=== PATIENT | female | born 1945 | race Caucasian/White ===

== ENCOUNTER 2022-02-25 14:25 | Outpatient (RCR) | payer MEDICARE, SELFPAY ==
--- NOTE | 2022-03-11 16:14 | ONC.NURNOTE ---
Patient called and told that Dr. tracy reviewed with tumor board the plan and at this time scan to be repeated in 3 months and follow up with Dr. tracy. Patient able to verbalize plan. CT and labs at [facility] prior to May 27 appt
== END 2022-03-15 23:59 | disposition home or self-care (01) ==
LOC: CCIC 14:25
PROVIDERS: Visit Provider Internal Medicine Hematology & Oncology
DX: C22.7 Other specified carcinomas of liver (principal); E87.1 Hypo-osmolality and hyponatremia
CPT/HCPCS: 99212; 99214; 99215

== ENCOUNTER 2022-02-27 07:36 | Outpatient (CLI) | payer MEDICARE, SELFPAY ==
--- NOTE | 2022-02-27 08:15 | CRLHL7_ITS ---
For Patients: As a result of the Cures Act, medical imaging exams and procedure reports are released immediately into your electronic medical record. You may view this report before your referring provider. If you have questions, please contact your health care provider. INDICATION: Liver cancer; slight progression of nodular densities in the right upper para colic gutter seen on the CT. COMPARISON: CT chest, abdomen and pelvis November 17, 2021. TECHNIQUE: Precontrast T1 and T2 weighted imaging; T2 haste imaging; diffusion weighted imaging; in and out of phase imaging; postcontrast imaging. FINDINGS: Status post partial right hepatic resection. Subtle but definite nodularity identified adjacent to the right colon in the right upper quadrant of the abdomen; slight progression when compared to November 17, 2021. No focal hepatic or splenic pathology. No pancreatic pathology. Status post cholecystectomy. No adrenal pathology. Cortical cyst lower pole left kidney without any interval change. No retroperitoneal lymphadenopathy. No evidence of abdominal ascites. IMPRESSION: 1. Status post partial right hepatic resection. 2. Subtle nodularity adjacent to the right colon in the right upper quadrant of the abdomen; slight progression since November 17, 2021; reoccurrence of malignancy in this location is not ruled out; PET-CT may be of value. Dictated by Marcos Vail MD @ 03/01/2022 4:33:29 PM (Electronically Signed)
== END 2022-02-27 07:37 | disposition home or self-care (01) ==
LOC: MRI 07:38
PROVIDERS: PCP Physician Assistant; Visit Provider Internal Medicine Hematology & Oncology
DX: C22.9 Malignant neoplasm of liver, not specified as primary or secondary (principal)
CPT/HCPCS: 74183; A9575

== ENCOUNTER 2022-06-03 08:54 | Outpatient (CLI) | payer MEDICARE, SELFPAY ==
--- NOTE | 2022-06-03 10:15 | CRLHL7_ITS ---
For Patients: As a result of the Century Cures Act, medical imaging exams and procedure reports are released immediately into your electronic medical record. You may view this report before your referring provider. If you have questions, please contact your health care provider. INDICATION: Carcinomatosis. Liver tumor. TECHNIQUE: MRI of the abdomen and pelvis. T1-T2 diffusion and postcontrast T1 imaging. Contrast: 15 cc of intravenous gadolinium. COMPARISON: 02/27/2022. FINDINGS: Liver: 2 cm lesion within segment 7 of the liver. This has abnormal signal on the diffusion sequence. This is visible on the post-contrast sequence series 16, image 39. In retrospect it was likely present on the prior exam. It shows little change in size but was more difficult to visualize. No new additional liver lesion. Spleen pancreas adrenal glands and kidneys: Stable no new lesions. Stable left renal cyst. Lymph nodes: No new pathologic lymph node enlargement. Peritoneum and pelvis: Definite increase in multiple small nodules with enhancement in the right pericolic region. Within the pelvis, some questionable thickening of small bowel loops is present. Question small anterior nodule in the omentum near the transverse colon series 15, image 63. No pelvic ascites. Urinary bladder is unremarkable. Skeletal: No suspicious lesions. Miscellaneous: No pleural effusions at the included lung bases. IMPRESSION: 1. 2 cm lesion hepatic segment 7 suspicious for recurrent or metastatic disease. Previous partial right hepatic resection. 2. Probable significant progression of carcinomatosis with definitely increase multiple small nodules in the right pericolic region as well as a possible area of infiltration and nodularity within the anterior omentum. 3. No ascites. Dictated by Rober Damico MD @ 06/05/2022 4:22:42 PM Signed by: Rober Damico MD @06/05/2022 4:22:42 PM ADITI/Dictated by: Rober Damico MD @ 06/05/2022 4:03:00 PM (Electronically Signed)
== END 2022-06-03 08:55 | disposition home or self-care (01) ==
LOC: MRI 08:54
PROVIDERS: PCP Physician Assistant; Visit Provider Internal Medicine Hematology & Oncology
DX: C22.9 Malignant neoplasm of liver, not specified as primary or secondary (principal); N28.1 Cyst of kidney, acquired
CPT/HCPCS: 72197; 74183; A9575

== ENCOUNTER 2022-06-21 07:45 | Emergency (ER) | payer MEDICARE, SELFPAY ==
[2022-06-21 07:51] VITALS: BP 172/74; PULSE 72; RESP 20; TEMP 36.4; O2SAT 97; BMI 205.1
--- NOTE | 2022-06-21 08:12 | ED_ITS ---
HPI - General Adult General Time Seen by Provider: 08:13 Date Seen: 06/21/22 Chief complaint: Skin/Abscess/Foreign Body Stated complaint: Breast black after needle biopsy Time Seen by Provider: 06/21/22 08:10 Source: patient and RN notes reviewed Mode of arrival: ambulatory Limitations: no limitations History of Present Illness HPI narrative: Patient is a very rashad 77-year-old female coming in with concern of black discoloration/bruising of her right breast. She had a biopsy done via needle at [place] on Wednesday. She has not had any nipple drainage. She states she has all kinds of discharge information but nothing on bruising. She has been using ice. There is some mild discomfort of the breast but nothing severe. Her medications are reviewed, no blood thinners. She has had no fevers, no concern for infection. Related Data Home Medications Medication Instructions Recorded Confirmed Lactobacillus acidophilus 1,000 mmu cells PO QDAY 02/24/22 05/27/22 acetaminophen 325 mg tablet 325 mg PO Q4H PRN 02/24/22 05/27/22 amlodipine 5 mg tablet 5 mg PO DAILY 02/24/22 05/27/22 amoxicillin 500 mg capsule 500 mg PO ONCE PRN 02/24/22 05/27/22 atenolol 50 mg tablet 50 mg PO .Bedtime 02/24/22 05/27/22 azelastine 137 mcg (0.1 %) nasal 2 intranasal PRN 02/24/22 05/27/22 spray aerosol calcium carbonate 200 mg calcium 200 mg PO QID PRN dyspepsia 02/24/22 05/27/22 (500 mg) chewable tablet (Antacid (calcium carbonate)) cholecalciferol (vitamin D3) 25 1,000 unit PO DAILY 02/24/22 05/27/22 mcg (1,000 unit) tablet cranberry 400 mg capsule 400 mg PO BID 02/24/22 05/27/22 docusate sodium 100 mg capsule mg PO PRN 02/24/22 05/27/22 estradiol 0.01% (0.1 mg/gram) 1 vaginal DIRECTED 02/24/22 05/27/22 vaginal cream famotidine 20 mg tablet mg PO BID 02/24/22 05/27/22 hydrochlorothiazide 25 mg tablet 25 mg PO DAILY 02/24/22 05/27/22 loratadine 10 mg tablet 10 mg PO .Daily as needed PRN 02/24/22 05/27/22 multivitamin 1 tab PO QAM 02/24/22 05/27/22 Allergies Allergy/AdvReac Type Severity Reaction Status Date / Time nickel Allergy Verified 02/24/22 13:30 oxycodone Allergy Verified 02/24/22 13:30 Sulfa (Sulfonamide Allergy Verified 02/24/22 13:30 Antibiotics) Tetracyclines Allergy Verified 02/24/22 13:30 Erythromycin Allergy Uncoded 02/24/22 13:30 Review of Systems Status of ROS: Reports: 6 or more systems reviewed and unremarkable except as noted in History and below PFSH PFS Social History Smoking Status: Never smoker Do you use any of these nicotine containing products: None How often do you have a drink containing alcohol: never AUDIT-C Alcohol total score: 0 Non-prescribed substance use: denies use Exam Const: Vital Signs, click to edit/add: Vital Signs - 24 hr 06/21/22 07:51 Temperature 97.5 F L Pulse Rate [Right Pulse Oximeter] 72 Respiratory Rate 20 Blood Pressure [Ri ght Upper Arm] 172/74 H Pulse Oximetry 97 Oxygen Delivery Me thod Room Air This is a very pleasant 77-year-old female that is alert interactive no apparent distress and inspection of her anterior chest wall the inferior portion of her right breast has purplish ecchymotic discoloration. It does go up and over the areola. They realized itself is still pinkish in color. There is no nipple discharge. The bruised area itself does not feel tense in any of the areas of discoloration. It simply looks like bruising but no palpable hematoma felt at this time. On palpation of the skin the skin is not tense and there is no area of induration that would seem like there is a localized hematoma. There is no concerning erythema surrounding the bruising, no visible symptoms of infection. Documenting provider has reviewed patient's vital signs: yes Course Vital Signs Vital signs: Initial Vital Signs Temperature 97.5 F L 06/21/22 07:51 Temperature Source Temporal Artery Scan 06/21/22 07:51 Pulse Rate 72 06/21/22 07:51 Respiratory Rate 20 06/21/22 07:51 Blood Pressure 172/74 H 06/21/22 07:51 Blood Pressure Mean 106 06/21/22 07:51 Blood Pressure Position Sitting 06/21/22 07:51 Pulse Oximetry 97 06/21/22 07:51 Oxygen Delivery Method 06/21/22 07:51 Vital Signs Temperature 97.5 F L 06/21/22 07:51 Pulse Rate 72 06/21/22 07:51 Respiratory Rate 20 06/21/22 07:51 Blood Pressure 172/74 H 06/21/22 07:51 Pulse Oximetry 97 06/21/22 07:51 Oxygen Delivery Method 06/21/22 07:51 Temperature 97.5 F L 06/21/22 07:51 Pulse Rate 72 06/21/22 07:51 Respiratory Rate 20 06/21/22 07:51 Blood Pressure 172/74 H 06/21/22 07:51 Pulse Oximetry 97 06/21/22 07:51 Oxygen Delivery Method 06/21/22 07:51 Critical Care Time Critical Care Time Critical Care Time: No Discharge Plan Discharge Clinical Impression: Bruise of breast Condition: Stable Instructions: Ecchymosis (ED) Additional Instructions: Minimize activity to help decrease the risk of further bruising. You may get some bloody drainage coming from the nipple with this level of bruising. Con tinue with ice to the breast to help decrease the risk of further bleeding in the skin tissues. Recheck this week with your primary care provider or with 1 of the general surgeons as they do do breast care. Contact Clinic to get this set up. Activity Level: No strenuous activity and Light activity Prescriptions: No Action cholecalciferol (vitamin D3) 25 mcg (1,000 unit) tablet 1,000 unit PO DAILY loratadine 10 mg tablet 10 mg PO .Daily as needed PRN atenolol 50 mg tablet 50 mg PO .Bedtime estradiol 0.01 % (0.1 mg/gram) cream 1 vaginal DIRECTED azelastine 137 mcg (0.1 %) aerosol,spray 2 intranasal PRN hydrochlorothiazide 25 mg tablet 25 mg PO DAILY docusate sodium 100 mg capsule PO PRN famotidine 20 mg tablet PO BID amlodipine 5 mg tablet 5 mg PO DAILY acetaminophen 325 mg tablet 325 mg PO Q4H PRN Rx Instructions: NO MORE THAN 4000 MG/DAY amoxicillin 500 mg capsule 500 mg PO ONCE PRN Rx Instructions: Take 4 capsules 1 HR PRIOR TO DENTAL APPT calcium carbonate [Antacid (calcium carbonate)] 200 mg calcium (500 mg) tablet,chewable 200 mg PO QID PRN (Reason: dyspepsia) cranberry 400 mg capsule 400 mg PO BID Rx Instructions: administer with meals multivitamin Tablet 1 tab PO QAM Lactobacillus acidophilus Capsule 1,000 mmu cells PO QDAY Follow Up/Referrals: Diann Mcginnis PA [Primary Care Provider] - Stand Alone Forms: MyHealth Info Instructions
== END 2022-06-21 08:30 | disposition home or self-care (01) ==
LOC: ED 08:26
PROVIDERS: Emergency Provider Family Medicine; PCP Physician Assistant
DX: L76.32 Postprocedural hematoma of skin and subcutaneous tissue following other procedure (principal)
CPT/HCPCS: 99282; 99283

== ENCOUNTER 2022-06-29 09:36 | Emergency (ER) | payer MEDICARE, SELFPAY ==
[2022-06-29] VITALS (13 sets, daily range): BP systolic 110–166; BP diastolic 56–86; PULSE 73–86; RESP 12–28; TEMP 36.9; O2SAT 89–97; BMI 29.3
--- NOTE | 2022-06-29 10:43 | ED.NURSE ---
started #20 jelco as a saline lock in the right AC. Able to draw the labs and waiting for orders. hurts when patient coughs and laughs on the right side. noted the right breast is bruised from the procedure patient had 10 days ago for a liver bx
--- NOTE | 2022-06-29 10:45 | ED.GENADULT ---
HPI - General Adult General Time Seen by Provider: 10:46 Date Seen: 06/29/22 Chief complaint: Abdominal Pain Stated complaint: Chest pain/cough/shortness of breath Time Seen by Provider: 06/29/22 10:45 Source: patient and RN notes reviewed Mode of arrival: ambulatory Limitations: no limitations History of Present Illness HPI narrative: Yesenia is a 77-year-old female coming in with concern of possible pulmonary embolus, possible complication of a breast biopsy done. She is having right-sided chest pain with episodes of severe almost like cramp type pain. Sometimes it does hurt with breathing. She had a right breast biopsy done at [facility] on June 17, was seen in the ED by myself on June 21 for significant bruising and bleeding. She had complication of bruising/hematoma of the breast. She states that seemingly was improving, never did have any nipple drainage that she saw. She unfortunately has been diagnosed with breast cancer. They are in the process of being evaluated in plans being made. Her states she is going to get a port put in. The last couple days the pain has started in her right chest. She had some pain baseline after the biopsy but this is extremely intense and worsening. Low-grade fever in the 99 range in the last 24 hours. Is feeling short of breath at times. Unclear if there is any arrhythmia or palpitations. No abdominal symptoms. While I was in with her she had a spell where the pain was severely intense, almost seems like a spasm such as a musculoskeletal type spasm. It lasted a few minutes and then abated. She was hanging onto her right chest wall over the lower rib area when this happened. She also worries that there could be internal bleeding, complication of maybe them damaging her liver with a biopsy. Related Data Home Medications Medication Instructions Recorded Confirmed Lactobacillus acidophilus 1,000 mmu cells PO QDAY 02/24/22 06/29/22 acetaminophen 325 mg tablet 325 mg PO Q4H PRN 02/24/22 06/29/22 amlodipine 5 mg tablet 5 mg PO DAILY 02/24/22 06/29/22 amoxicillin 500 mg capsule 500 mg PO ONCE PRN 02/24/22 06/24/22 atenolol 50 mg tablet 50 mg PO .Bedtime 02/24/22 06/29/22 azelastine 137 mcg (0.1 %) nasal 2 intranasal PRN 02/24/22 06/24/22 spray aerosol calcium carbonate 200 mg calcium 200 mg PO QID PRN dyspepsia 02/24/22 06/29/22 (500 mg) chewable tablet (Antacid (calcium carbonate)) cholecalciferol (vitamin D3) 25 1,000 unit PO DAILY 02/24/22 06/29/22 mcg (1,000 unit) tablet cranberry 400 mg capsule 400 mg PO BID 02/24/22 06/29/22 docusate sodium 100 mg capsule 100 mg PO DAILY PRN 02/24/22 06/29/22 estradiol 0.01% (0.1 mg/gram) 1 vaginal DIRECTED 02/24/22 06/24/22 vaginal cream famotidine 20 mg tablet 20 mg PO BID 02/24/22 06/29/22 hydrochlorothiazide 25 mg tablet 25 mg PO DAILY 02/24/22 06/29/22 loratadine 10 mg tablet 10 mg PO .Daily as needed PRN 02/24/22 06/29/22 multivitamin 1 tab PO QAM 02/24/22 06/29/22 Previous Rx's Medication Instructions Recorded loperamide 2 mg capsule 2 mg PO Q6H PRN loose stool #60 06/24/22 caps prochlorperazine maleate 5 mg 5 mg PO BID PRN nausea and 06/24/22 tablet (Compazine) vomiting #60 tabs Allergies Allergy/AdvReac Type Severity Reaction Status Date / Time nickel Allergy Verified 06/29/22 12:59 oxycodone Allergy Verified 06/29/22 12:59 Sulfa (Sulfonamide Allergy Verified 06/29/22 12:59 Antibiotics) Tetracyclines Allergy Verified 06/29/22 12:59 Erythromycin Allergy Uncoded 06/29/22 12:59 Review of Systems Status of ROS: Reports: 10 or more systems reviewed and unremarkable except as noted in History and below PFSH PFS Social History Smoking Status: Never smoker Do you use any of these nicotine containing products: None How often do you have a drink containing alcohol: never AUDIT-C Alcohol total score: 0 Non-prescribed substance use: denies use Exam Const: Vital Signs, click to edit/add: Vital Signs - 24 hr 06/29/22 09:54 06/29/22 10:35 06/29/22 10:40 Temperature 98.5 F Pulse Rate [Left P ulse Oximeter] 84 80 Respiratory Rate 18 19 Blood Pressure [Le ft Upper Arm] 143/76 H 156/66 H Pulse Oximetry 96 94 94 Oxygen Delivery Me thod Room Air Room Air Oxygen Flow Rate 06/29/22 11:00 06/29/22 11:30 06/29/22 12:00 Temperature Pulse Rate [Left P ulse Oximeter] 85 76 79 Respiratory Rate 12 18 19 Blood Pressure [Le ft Upper Arm] 166/77 H 138/58 L 135/56 L Pulse Oximetry 94 92 92 Oxygen Delivery Me thod Room Air Room Air Nasal Cannula Oxygen Flow Rate 2 06/29/22 12:30 06/29/22 13:00 06/29/22 13:30 Temperature Pulse Rate [Left P ulse Oximeter] 73 78 80 Respiratory Rate 18 16 14 Blood Pressure [Le ft Upper Arm] 110/86 132/62 Pulse Oximetry 96 97 97 Oxygen Delivery Me thod Nasal Cannula Nasal Cannula Nasal Cannula Oxygen Flow Rate 2 2 2 06/29/22 13:41 06/29/22 13:44 Temperature Pulse Rate [Left P ulse Oximeter] 86 Respiratory Rate 20 18 Blood Pressure [Le ft Upper Arm] 150/67 H Pulse Oximetry 89 97 Oxygen Delivery Me thod Room Air Nasal Cannula Oxygen Flow Rate 2 Documenting provider has reviewed patient's vital signs: yes Common normals: no apparent distress, average body habitus, oriented x3, no limitations, healthy appearing and alert Other: Initially was comfortable but when her episode of pain hit while I was in the room, was in obvious distress and uncomfortable. This abated after a couple minutes but she was left with increased baseline pain. HENMT: Common normals: normocephalic, head/scalp atraumatic, hearing grossly normal bilaterally, external ears normal, external nose normal, nasal mucous membranes and turbinates normal, moist oral mucous membranes, oropharynx normal, dentition normal and gingiva normal Head and scalp: normocephalic and atraumatic Nose: external nose normal and nasal mucous membranes and turbinates normal External ear: external ears normal Eye: Common normals: PERRL, EOMs intact bilaterally, conjunctivae normal and no scleral icterus Conjunctiva: conjunctiva(e) normal Pupil: PERRL Neck & C-Spine: Common normals: full ROM, no lymphadenopathy, supple, no meningeal signs, no JVD and thyroid normal Thyroid: thyroid normal Lymph: Lymphatic: no lymphadenopathy noted Chest: Other: Inferior right breast distal ecchymotic but appears to be resolving, less intense ecchymosis noted. Overall to me the breast looks improved. There is no nipple drainage. [place] unaffected. I cannot visualize the sites where the biopsy was for sure, think I can maybe C1. Below the breast the chest wall looks normal, nontender. Resp: Common normals: normal respiratory effort, no retractions, no use of accessory muscles and clear to auscultation bilaterally Auscultation: clear to auscultation bilaterally Cardio: Common normals: no JVD, regular rate, regular rhythm, S1 normal heart sound, S2 normal heart sound, no gallops, no clicks and no murmurs Rate: regular rate Rhythm: regular rhythm Heart sounds: S1 normal and S2 normal GI: Common normals: Normal to inspection, nondistended, normoactive bowel sounds present, soft to palpation, non-tender, no hepatosplenomegaly and no masses Palpation: soft and no hepatosplenomegaly Extremity: Other: No lower extremity edema, no calf tenderness. Neuro: Common normals: oriented x3, CN's II-XII intact bilaterally, moves all extremities, no focal motor deficits, no sensory deficits noted and gait normal Sensorium/orientation: alert Meningeal signs: no meningeal signs Speech: speech normal Course Course Hospital Course: Patient will be on cardiac monitoring and pulse oximetry to look for any evidence of any arrhythmia, hypoxia. Complications of the breast biopsy are not likely to involve any underlying structural damage to the liver or the lung. I am wondering if this is more complication of the new diagnosis of breast cancer. Pneumonia, pleurisy, thromboembolic disease are all potential etiologies. I am not sure if she has had any advanced imaging to see if there is any metastases. Complications from her cancer seem to me to be more likely. Will be obtaining a full complement of labs. On discussion of pain management, it does sound like she has tolerated fentanyl prior. I have ordered fentanyl for her. She will need to be again on pulse oximetry because of the fentanyl use as well. Reevaluation(s) Reevaluation #1: Reviewed with patient and her that I was talking to our surgeon regarding what to do next. Patient is up in the room, stating she is getting an seen wants to go home. I have the sense that she has maybe a bit forgetful. Reviewed with them that she actually had a liver biopsy. Her states they told me that. The end deed did not exactly states that she had had a liver biopsy. I even said that she was diagnosed with breast cancer as a follow-up statement in there in the room with them they stated yes. This actually is recurrent liver cancer that is been diagnosed. 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 Reviewed her hemoglobin seems to be stable in the upper 11 range, am doubtful that this is a bleeding complication. The pleural fluid on her lungs maybe a complication of her cancerous process. She has been hypoxic a couple times up walking to the bathroom but recovers in the room. She does not want to stay, would like to be arranged outpatient to come back for thoracentesis if felt appropriate. She states she is going to be starting immune therapy and a couple weeks and wonders if that went just take care of things. Time: 15:16 Consultations Consultation #1: Spoke with our surgeon regarding this patient. Did pull up Dr. Quan is note and reviewing through this, I am not sure that patient actually had breast cancer. Looks like it was a liver biopsy done and had a complication of the breast hematoma. This actually making a bit more sense now. She will look at the CT to see if this is amenable for diagnostic and potentially therapeutic thoracentesis. Time: 14:47 Vital Signs Vital signs: Initial Vital Signs Temperature 98.5 F 06/29/22 09:54 Temperature Source Temporal Artery Scan 06/29/22 09:54 Pulse Rate 84 06/29/22 09:54 Respiratory Rate 18 06/29/22 09:54 Blood Pressure 143/76 H 06/29/22 09:54 Blood Pressure Mean 98 06/29/22 09:54 Blood Pressure Position Sitting 06/29/22 09:54 Pulse Oximetry 96 06/29/22 09:54 Oxygen Delivery Method 06/29/22 09:54 Vital Signs Temperature 98.5 F 06/29/22 09:54 Pulse Rate 84 06/29/22 09:54 Respiratory Rate 18 06/29/22 09:54 Blood Pressure 143/76 H 06/29/22 09:54 Pulse Oximetry 96 11/14/22 09:54 Oxygen Delivery Method 06/29/22 09:54 Temperature 98.5 F 06/29/22 09:54 Pulse Rate 86 06/29/22 13:41 Respiratory Rate 18 06/29/22 13:44 Blood Pressure 150/67 H 06/29/22 13:41 Pulse Oximetry 97 06/29/22 13:44 Oxygen Delivery Method 06/29/22 13:44 Oxygen Flow Rate 2 06/29/22 13:44 Medical Decision Making Lab Data Lab results reviewed: Yes I reviewed the patient's lab results Labs: Lab Results 06/29/22 06/29/22 06/29/22 Range/Units 10:40 10:40 10:40 WBC 9.98 (4.50-11.00) K/uL RBC 3.74 L (4.00-5.20) m/uL Hgb 11.8 L (12.0-16.0) gm/dL Hct 35.9 (33.0-51.0) % MCV 96 (80-100) fL MCH 32 (26-34) pg MCHC 33 (32-36) gm/dL RDW Coeff of Elva 13.9 (11.5-15.5) % Plt Count 354 (140-440) K/uL Neut % (Auto) 73.9 H (42.0-72.0) % Lymph % (Auto) 11.9 L (20-44) % [place] % (Auto) 10.1 (0.0-11.0) % Eos % (Auto) 3.0 (0.0-7.0) % Baso % (Auto) 0.8 (0.0-3.0) % Neut # (Auto) 7.40 H (1.7-7.0) K/uL Lymph # (Auto) 1.20 (0.90-2.90) K/uL [place] # (Auto) 1.00 H (0.00-0.90) K/UL Eos # (Auto) 0.30 (0.00-0.50) K/uL Baso # (Auto) 0.08 (0.00-0.30) K/uL Abs Immat Gran (auto) 0.03 (0.00-0.30) K/uL Imm/Tot Granulo (auto) 0.3 % D-Dimer Quant (PE/DVT) 1.33 H (0.00-0.50) ug/ml VBG pH (7.32-7.43) VBG pCO2 (40-50) mmHG VBG pO2 (25-47) mmHG VBG HCO3 (21-28) mmol/L Sodium 130 L (135-149) mmol/L Potassium 4.1 (3.6-5.1) mmol/L Chloride 93 L (96-114) mmol/L Carbon Dioxide 29 (20-32) mmol/L BUN 15 (7-30) mg/dL Creatinine 0.6 (0.5-1.5) mg/dL Estimated Creat Clear 33.30 Estimated GFR 92 ml/min Glucose 97 (60-115) mg/dL Lactate (0.5-1.9) mmol/L Calcium 9.6 (8.4-10.6) mg/dL Total Bilirubin 0.8 (0.1-1.5) mg/dL AST 25 (12-35) U/L ALT 18 (4-35) U/L Alkaline Phosphatase 70 (40-150) U/L C-Reactive Protein 7.9 H (0.5-1.0) mg/dL Total Protein 7.0 (6.0-8.3) g/dL Albumin 4.0 (3.3-5.0) g/dL Lipase (23-300) U/L SARS-CoV-2 (PCR) (Negative) Influenza Type A (PCR) (Negative) Influenza Type B (PCR) (Negative) RSV (PCR) (Negative) POC Troponin I (0.01-0.04) ng/ml 06/29/22 06/29/22 06/29/22 Range/Units 10:40 10:40 10:40 WBC (4.50-11.00) K/uL RBC (4.00-5.20) m/uL Hgb (12.0-16.0) gm/dL Hct (33.0-51.0) % MCV (80-100) fL MCH (26-34) pg MCHC (32-36) gm/dL RDW Coeff of Elva (11.5-15.5) % Plt Count (140-440) K/uL Neut % (Auto) (42.0-72.0) % Lymph % (Auto) (20-44) % [place] % (Auto) (0.0-11.0) % Eos % (Auto) (0.0-7.0) % Baso % (Auto) (0.0-3.0) % Neut # (Auto) (1.7-7.0) K/uL Lymph # (Auto) (0.90-2.90) K/uL [place] # (Auto) (0.00-0.90) K/UL Eos # (Auto) (0.00-0.50) K/uL Baso # (Auto) (0.00-0.30) K/uL Abs Immat Gran (auto) (0.00-0.30) K/uL Imm/Tot Granulo (auto) % D-Dimer Quant (PE/DVT) (0.00-0.50) ug/ml VBG pH (7.32-7.43) VBG pCO2 (40-50) mmHG VBG pO2 (25-47) mmHG VBG HCO3 (21-28) mmol/L Sodium (135-149) mmol/L Potassium (3.6-5.1) mmol/L Chloride (96-114) mmol/L Carbon Dioxide (20-32) mmol/L BUN (7-30) mg/dL Creatinine (0.5-1.5) mg/dL Estimated Creat Clear Estimated GFR ml/min Glucose (60-115) mg/dL Lactate 1.2 (0.5-1.9) mmol/L Calcium (8.4-10.6) mg/dL Total Bilirubin (0.1-1.5) mg/dL AST (12-35) U/L ALT (4-35) U/L Alkaline Phosphatase (40-150) U/L C-Reactive Protein (0.5-1.0) mg/dL Total Protein (6.0-8.3) g/dL Albumin (3.3-5.0) g/dL Lipase 70 (23-300) U/L SARS-CoV-2 (PCR) (Negative) Influenza Type A (PCR) (Negative) Influenza Type B (PCR) (Negative) RSV (PCR) (Negative) POC Troponin I 0.00 L (0.01-0.04) ng/ml 06/29/22 06/29/22 Range/Units 10:40 10:56 WBC (4.50-11.00) K/uL RBC (4.00-5.20) m/uL Hgb (12.0-16.0) gm/dL Hct (33.0-51.0) % MCV (80-100) fL MCH (26-34) pg MCHC (32-36) gm/dL RDW Coeff of Elva (11.5-15.5) % Plt Count (140-440) K/uL Neut % (Auto) (42.0-72.0) % Lymph % (Auto) (20-44) % [place] % (Auto) (0.0-11.0) % Eos % (Auto) (0.0-7.0) % Baso % (Auto) (0.0-3.0) % Neut # (Auto) (1.7-7.0) K/uL Lymph # (Auto) (0.90-2.90) K/uL [place] # (Auto) (0.00-0.90) K/UL Eos # (Auto) (0.00-0.50) K/uL Baso # (Auto) (0.00-0.30) K/uL Abs Immat Gran (auto) (0.00-0.30) K/uL Imm/Tot Granulo (auto) % D-Dimer Quant (PE/DVT) (0.00-0.50) ug/ml VBG pH 7.475 H (7.32-7.43) VBG pCO2 41 (40-50) mmHG VBG pO2 44.6 (25-47) mmHG VBG HCO3 30 H (21-28) mmol/L Sodium (135-149) mmol/L Potassium (3.6-5.1) mmol/L Chloride (96-114) mmol/L Carbon Dioxide (20-32) mmol/L BUN (7-30) mg/dL Creatinine (0.5-1.5) mg/dL Estimated Creat Clear Estimated GFR ml/min Glucose (60-115) mg/dL Lactate (0.5-1.9) mmol/L Calcium (8.4-10.6) mg/dL Total Bilirubin (0.1-1.5) mg/dL AST (12-35) U/L ALT (4-35) U/L Alkaline Phosphatase (40-150) U/L C-Reactive Protein (0.5-1.0) mg/dL Total Protein (6.0-8.3) g/dL Albumin (3.3-5.0) g/dL Lipase (23-300) U/L SARS-CoV-2 (PCR) Negative SARS-CoV-2 (Negative) Influenza Type A (PCR) Negative PCR FLU A (Negative) Influenza Type B (PCR) Negative PCR FLU B (Negative) RSV (PCR) Negative PCR RSV (Negative) POC Troponin I (0.01-0.04) ng/ml Imaging Data Chest x-ray: Attestation: I have reviewed the pertinent imaging results. My impression: There is obliteration of the right costophrenic angle, some haziness. Pleural effusion, infiltrate certainly are possible. Await Radiology over-read. Radiologist's impression: Patient: LENI GAN Facility:?[facility] Patient ID:?[id number] Site Patient ID:?[id number]. Site :?[id number] Study:?XRay Chest PORTABLE-06/29/2022 11:17:35 AM Ordering Physician:Soren Galdamez Final Report: Indication: Right-sided chest pain. Technique: Chest 1 view. Comparison: CT chest November 17, 2021. Findings/Impression: Cardiovascular and mediastinum: Heart size and vasculature are normal in caliber and appearance. Lungs and pleural space: Asymmetric hazy opacity is obscuring the lower right lung. An infiltrative process in this area is possible. Small right basilar pleural effusion is also possible. Left lung and pleural space are clear. No pneumothorax. No other finding to explain chest pain. Bones and soft tissues: No acute findings. Dictated by Brendon Randhawa MD @ 06/29/2022 12:00:26 PM (Electronic Signature) CT scan - chest: Attestation: I have reviewed the pertinent imaging results. My impression: I see a definite pleural effusion in her right hemithorax. Radiologist's impression: Patient: LENI GAN Facility:?[facility] Patient ID:?[id number] Site Patient ID:?[id number]. Site :?[id number] Study:?CT Chest Angio PE 95CC ISOVUE 370-06/29/2022 12:56:46 PM Ordering Physician:Soren Galdamez Final Report: INDICATION: Right chest pain. New diagnosed breast cancer. TECHNIQUE: CT chest PE was acquired with 95 mL Isovue 370 IV contrast. Coronal and sagittal reformats were generated. COMPARISON: CT chest, abdomen, and pelvis from 11/17/2021. FINDINGS: Pulmonary arteries: The quality of enhancement of the pulmonary arteries is adequate. No filling defects to suggest pulmonary emboli. No findings of pulmonary artery hypertension. Thyroid: Unremarkable. Thoracic lymph nodes: No enlarged supraclavicular, mediastinal, hilar, or axillary lymph nodes. Mediastinum and esophagus: Unremarkable. Heart and vasculature: Unremarkable. Lungs: Stable changes of right upper lobectomy. Right basilar relaxation atelectasis. Several small pulmonary nodules appear new from prior. Index lesions include: *Right lower lobe nodule measures approximately 6 mm (5/115). *Right lower lobe nodule near the fissure measures approximately 5 mm (5/61). Pleura: Small right pleural effusion is new. No left pleural effusion. Chest wall: Unremarkable. Upper abdomen: Stable contour deformity of the right hepatic lobe, with high-density material suggestive of prior resection. Multiple adjacent nodules in the mesentery are new or increased in size from prior. Bones: Unremarkable for age. IMPRESSION: 1. No pulmonary embolism. 2. New right pleural effusion with associated compressive atelectasis. 3. New pulmonary nodules are nonspecific, but suggestive of metastases. 4. Stable changes of partial right hepatectomy, with new nodules in the mesentery adjacent to the liver, possibly recurrent disease or peritoneal carcinomatosis. Please note that all CT scans at this facility use dose modulation, iterative reconstruction, and/or weight-based dosing when appropriate to reduce radiation dose to as low as reasonably achievable. Dictated by Brien Florez MD @ 06/29/2022 1:58:21 PM (Electronic Signature) ECG Data Attestation: I personally reviewed and interpreted this ECG as follows: (Sinus rhythm, 78 beats per minute. Flipped T-waves lead 3, V1 through V3. No ST segment changes. QT corrected 399 milliseconds.) Prior ECG tracings: not available for review Critical Care Time Critical Care Time Critical Care Time: No Discharge Plan Discharge Clinical Impression: Cancer of liver, Pleural effusion on right Patient Disposition: Home, Self-Care Condition: Stable Instructions: Pleural Effusion (ED), Thoracentesis (DC) Additional Instructions: Can try some Tylenol per bottle directions if needed for pain. The Cancer [facility] will be contacting you to see Dr. Sims either tomorrow or Wednesday. She will have a repeat chest x-ray done to determine whether or not thoracentesis needs to be considered. The radiologist had spoken with our surgeon today and felt that the effusion was small, making the surgeon feel like this was not immediately necessary to do the thoracentesis. However, in the interim if you are worsening with increasing shortness of breath, difficulty breathing, increasing chest pain, do need you to return and seek further evaluation in the ER. Do not recommend over exerting yourself to precipitate any shortness of breath. Activity Level: Activity as Tolerated Prescriptions: No Action cholecalciferol (vitamin D3) 25 mcg (1,000 unit) tablet 1,000 unit PO DAILY loratadine 10 mg tablet 10 mg PO .Daily as needed PRN atenolol 50 mg tablet 50 mg PO .Bedtime estradiol 0.01 % (0.1 mg/gram) cream 1 vaginal DIRECTED azelastine 137 mcg (0.1 %) aerosol,spray 2 intranasal PRN hydrochlorothiazide 25 mg tablet 25 mg PO DAILY docusate sodium 100 mg capsule 100 mg PO DAILY PRN famotidine 20 mg tablet 20 mg PO BID amlodipine 5 mg tablet 5 mg PO DAILY acetaminophen 325 mg tablet 325 mg PO Q4H PRN Rx Instructions: NO MORE THAN 4000 MG/DAY amoxicillin 500 mg capsule 500 mg PO ONCE PRN Rx Instructions: Take 4 capsules 1 HR PRIOR TO DENTAL APPT calcium carbonate [Antacid (calcium carbonate)] 200 mg calcium (500 mg) tablet,chewable 200 mg PO QID PRN (Reason: dyspepsia) cranberry 400 mg capsule 400 mg PO BID Rx Instructions: administer with meals multivitamin Tablet 1 tab PO QAM Lactobacillus acidophilus Capsule 1,000 mmu cells PO QDAY prochlorperazine maleate [Compazine] 5 mg tablet 5 mg PO BID PRN (Reason: nausea and vomiting) Qty: 60 0RF loperamide 2 mg capsule 2 mg PO Q6H PRN (Reason: loose stool) Qty: 60 0RF Follow Up/Referrals: Diann Mcginnis PA [Primary Care Provider] - Stand Alone Forms: [employer] Info Instructions
--- NOTE | 2022-06-29 10:55 | CRLHL7_ITS ---
For Patients: As a result of the Century Cures Act, medical imaging exams and procedure reports are released immediately into your electronic medical record. You may view this report before your referring provider. If you have questions, please contact your health care provider. Indication: Right-sided chest pain. Technique: Chest 1 view. Comparison: CT chest November 17, 2021. Findings/Impression: Cardiovascular and mediastinum: Heart size and vasculature are normal in caliber and appearance. Lungs and pleural space: Asymmetric hazy opacity is obscuring the lower right lung. An infiltrative process in this area is possible. Small right basilar pleural effusion is also possible. Left lung and pleural space are clear. No pneumothorax. No other finding to explain chest pain. Bones and soft tissues: No acute findings. Dictated by Brendon Randhawa MD @ 06/29/2022 12:00:26 PM (Electronically Signed)
[2022-06-29 11:06] LABS: HCO3 VBG 30 mmol/L (21-28); PCO2 VBG 41 mmHG (40-50); PO2 VBG 44.6 mmHG (25-47); pH VBG 7.475 (7.32-7.43)
[2022-06-29 11:08] LABS: Lactate* 1.2 mmol/L (0.5-1.9)
[2022-06-29 11:24] LABS: Basophils Absolute Auto 0.08 K/uL (0.00-0.30); Basophils Percent Auto 0.8 % (0.0-3.0); Hematocrit 35.9 % (33.0-51.0); Hemoglobin* 11.8 gm/dL (12.0-16.0); Immature Granulocytes Abs Auto 0.03 K/uL (0.00-0.30); Immature Granulocytes Pct Auto 0.3 %; Lymphocytes Percent Auto 11.9 % (20-44); Mean Corpuscular HGB Conc 33 gm/dL (32-36); Mean Corpuscular Hemoglobin 32 pg (26-34); Mean Corpuscular Volume 96 fL (80-100); Monocytes Percent Auto 10.1 % (0.0-11.0); Neutrophils Percent Auto 73.9 % (42.0-72.0); Platelet Count* 354 K/uL (140-440); RDW Coefficient of Variation % 13.9 % (11.5-15.5); Red Blood Count 3.74 m/uL (4.00-5.20); White Blood Count* 9.98 K/uL (4.50-11.00)
--- NOTE | 2022-06-29 11:40 | ED.NURSE ---
up ambulatory to BR. Sats 86% on room air when pt returned. encouraged deep breathing and cough. Pt stated she could cough but it would hurt. Sats increased to 93% on room with with rest and deep breathing.
[2022-06-29 11:44] LABS: D Dimer Quantitative* 1.33 ug/ml (0.00-0.50)
--- NOTE | 2022-06-29 11:54 | CRLHL7_ITS ---
For Patients: As a result of the Century Cures Act, medical imaging exams and procedure reports are released immediately into your electronic medical record. You may view this report before your referring provider. If you have questions, please contact your health care provider. INDICATION: Right chest pain. New diagnosed breast cancer. TECHNIQUE: CT chest PE was acquired with 95 mL Isovue 370 IV contrast. Coronal and sagittal reformats were generated. COMPARISON: CT chest, abdomen, and pelvis from 11/17/2021. FINDINGS: Pulmonary arteries: The quality of enhancement of the pulmonary arteries is adequate. No filling defects to suggest pulmonary emboli. No findings of pulmonary artery hypertension. Thyroid: Unremarkable. Thoracic lymph nodes: No enlarged supraclavicular, mediastinal, hilar, or axillary lymph nodes. Mediastinum and esophagus: Unremarkable. Heart and vasculature: Unremarkable. Lungs: Stable changes of right upper lobectomy. Right basilar relaxation atelectasis. Several small pulmonary nodules appear new from prior. Index lesions include: *Right lower lobe nodule measures approximately 6 mm (5/115). *Right lower lobe nodule near the fissure measures approximately 5 mm (5/61). Pleura: Small right pleural effusion is new. No left pleural effusion. Chest wall: Unremarkable. Upper abdomen: Stable contour deformity of the right hepatic lobe, with high-density material suggestive of prior resection. Multiple adjacent nodules in the mesentery are new or increased in size from prior. Bones: Unremarkable for age. IMPRESSION: 1. No pulmonary embolism. 2. New right pleural effusion with associated compressive atelectasis. 3. New pulmonary nodules are nonspecific, but suggestive of metastases. 4. Stable changes of partial right hepatectomy, with new nodules in the mesentery adjacent to the liver, possibly recurrent disease or peritoneal carcinomatosis. Please note that all CT scans at this facility use dose modulation, iterative reconstruction, and/or weight-based dosing when appropriate to reduce radiation dose to as low as reasonably achievable. Dictated by Brien Florez MD @ 06/29/2022 1:58:21 PM (Electronically Signed)
[2022-06-29 11:57] LABS: PCR FLU A Negative PCR FLU A (Negative); PCR FLU B Negative PCR FLU B (Negative); PCR RSV Negative PCR RSV (Negative)
[2022-06-29 11:59] LABS: Slide Review Reflex No
[2022-06-29 12:08] LABS: Chloride* 93 mmol/L (96-114); Sodium* 130 mmol/L (135-149)
[2022-06-29 12:08] LABS: SARS PCR* Negative SARS-CoV-2 (Negative)
[2022-06-29 12:09] LABS: Potassium* 4.1 mmol/L (3.6-5.1)
[2022-06-29 12:10] LABS: Lipase* 70 U/L (23-300)
[2022-06-29 12:11] LABS: Alkaline Phosphatase* 70 U/L (40-150); Aspartate Amino Transferase* 25 U/L (12-35); Bilirubin Total* 0.8 mg/dL (0.1-1.5); Carbon Dioxide* 29 mmol/L (20-32); Creatinine* 0.6 mg/dL (0.5-1.5); Estimated Glomerular Filt Rate 92 ml/min
[2022-06-29 12:12] LABS: Alanine Aminotransferase* 18 U/L (4-35); Blood Urea Nitrogen* 15 mg/dL (7-30); Calcium* 9.6 mg/dL (8.4-10.6); Glucose* 97 mg/dL (60-115)
[2022-06-29 12:14] LABS: C Reactive Protein* 7.9 mg/dL (0.5-1.0)
--- NOTE | 2022-06-29 13:39 | ED.NURSE ---
Pt up to bathroom and states she would like to try walking without being on oxygen. Pt's sats at 89% on RA after returning from bathroom. Pt placed back on 2 LPM O2 via NC. Sats up to 97%.
--- NOTE | 2022-06-29 14:09 | ED.NURSE ---
Pt c/o pain. Asked if she would like prn pain medication. Pt states she would like to hold off on any pain medication at this time.
== END 2022-06-29 15:55 | disposition home or self-care (01) ==
PROVIDERS: Emergency Provider Family Medicine; PCP Physician Assistant
DX: J90 Pleural effusion, not elsewhere classified (principal); C22.9 Malignant neoplasm of liver, not specified as primary or secondary
CPT/HCPCS: 36415; 71045; 71260; 80053; 82803; 83605; 83690; 85025; 85379; 86140; 87502; 87634; 87635; 93005; 94761; 99284; Q9967

== ENCOUNTER 2022-06-30 12:57 | Outpatient (CLI) | payer MEDICARE, SELFPAY ==
--- NOTE | 2022-06-30 13:00 | CRLHL7_ITS ---
For Patients: As a result of the Century Cures Act, medical imaging exams and procedure reports are released immediately into your electronic medical record. You may view this report before your referring provider. If you have questions, please contact your health care provider. INDICATION: Right pleural effusion. TECHNIQUE: Chest 2 views. COMPARISON: Chest x-ray from 06/29/2022. FINDINGS: Lungs: Mild interstitial prominence. No focal consolidation. Pleura: Small right pleural effusion is slightly larger. Heart and Mediastinum: The cardiomediastinal silhouette is enlarged. Slightly larger right pleural effusion. Bones: Unremarkable. IMPRESSION: No acute cardiopulmonary disease. Dictated by Brien Florez MD @ 06/30/2022 2:04:42 PM (Electronically Signed)
== END 2022-06-30 12:58 | disposition home or self-care (01) ==
LOC: RAD 12:57
PROVIDERS: PCP Physician Assistant; Visit Provider Clinical Nurse Specialist
DX: J90 Pleural effusion, not elsewhere classified (principal); E78.5 Hyperlipidemia, unspecified; I10 Essential (primary) hypertension; C34.91 Malignant neoplasm of unspecified part of right bronchus or lung; Z90.49 Acquired absence of other specified parts of digestive tract; C22.9 Malignant neoplasm of liver, not specified as primary or secondary
CPT/HCPCS: 71046

== ENCOUNTER 2022-07-01 10:15 | Outpatient (CLI) | payer MEDICARE, SELFPAY ==
[2022-07-01 10:20] VITALS: BP 169/88; PULSE 77; RESP 18; O2SAT 95
[2022-07-01] MEDS: TETRACAINE 0.5% OPHTH 1 DROP EYE-RIGHT ×3 (10:28→11:23)
[2022-07-01] MEDS: BRIMONIDINE TARTRATE 0.2% OPHTH 1 DROP EYE-RIGHT ×2 (10:30→11:31)
--- NOTE | 2022-07-01 12:16 | P.OPTPRC_ITS ---
Procedure Note Date of procedure: 07/01/22 Will [facility] bill your pro fee for this procedure?: Yes Procedure Description: SURGEON: Thelma Urena MD PREOPERATIVE DIAGNOSIS: Posterior capsular opacity, right eye POSTOPERATIVE DIAGNOSIS: Posterior capsular opacity, right eye PROCEDURE: YAG laser capsulotomy, right eye ANESTHESIA: Topical. ESTIMATED BLOOD LOSS: None PATHOLOGY SPECIMEN: None COMPLICATIONS: None INDICATIONS: See consult note for details. The risks, benefits and alternatives of the procedure were explained to the patient, who elected to proceed and signed informed consent to do so. PROCEDURE: The patient was brought to the pre-holding area where the right eye was identified as the operative eye. I placed my initials above this eye. The patient received 2 sets of 1 drop of 0.5% tetracaine and 1 drop of 1% tropicamide. They also received 1 drop of 0.2% brimonidine. They received 1 drop of 0.5% tetracaine immediately prior to bringing them back for the procedure. The patient was then brought to the procedure room where the right eye was again identified as the operative eye. A YAG Chapito capsulotomy lens was placed on the eye. The laser was administered using a total number of 13shots with an energy of 2.4 mJ per shot for a total energy of 31 mJ. The patient tolerated the procedure well. DISPOSITION: The patient was taken back to the pre-holding area and given 1 drop of 0.2% brimonidine in the right eye. They were discharged to home in stable condition. The patient was instructed to call me or go to the emergency department with any sudden change, including dramatic loss of vision, severe pain in the eye or eyebrow region, nausea, or vomiting. The patient was instructed to use the 0.2% brimonidine 1 drop 2 times a day in the right eye for 1 week. The patient will follow up in the clinic in 1-2 weeks. Thirteen Surgeon: Thelma Urena MD
== END 2022-07-01 11:31 | disposition home or self-care (01) ==
LOC: OP CLINIC 10:16 → EYE PRC 10:20
PROVIDERS: PCP Physician Assistant; Visit Provider Ophthalmology
DX: H26.9 Unspecified cataract (principal)
CPT/HCPCS: 66821; A9270

== ENCOUNTER 2022-07-10 13:36 | Emergency (ER) | payer MEDICARE, SELFPAY ==
[2022-07-10 14:59] VITALS: BP 175/79; PULSE 84; RESP 26; TEMP 37.1; O2SAT 96; BMI 28.3
--- NOTE | 2022-07-10 15:22 | CRLHL7_ITS ---
For Patients: As a result of the Century Cures Act, medical imaging exams and procedure reports are released immediately into your electronic medical record. You may view this report before your referring provider. If you have questions, please contact your health care provider. Indication: Shortness of breath Comparison: Two-view chest June 30, 2022 Technique: Single AP view chest Findings: There is hyperinflation and chronic interstitial change. Persistent right greater than left basilar pleural effusions with adjacent compressive atelectasis versus infiltrates. Postoperative change of the right upper lobe and elevation of the minor fissure is again seen. The cardiac silhouette is mildly prominent. The bony thorax is grossly intact. Impression: Right greater than left basilar pleural effusion with adjacent compressive atelectasis versus infiltrates. Dictated by Jovan Ibrahim MD @ 07/10/2022 4:39:38 PM (Electronically Signed)
[2022-07-10 15:40] LABS: Appearance Urine Clear (Clear); Bilirubin Urine Negative (Negative); Blood Urine 2+ (Negative); Color Urine Yellow (Yellow); Glucose Urine Negative (Negative); Ketones Urine Negative (Negative); Leukocyte Esterase Urine Negative (Negative); Nitrite Urine Negative (Negative); Protein Urine Negative (Negative); Urobilinogen Urine 0.2 (0.2-1.0)
[2022-07-10 15:57] LABS: Lactate* 0.7 mmol/L (0.5-1.9)
[2022-07-10 15:59] LABS: Basophils Absolute Auto 0.12 K/uL (0.00-0.30); Basophils Percent Auto 1.2 % (0.0-3.0); Eosinophils Absolute Auto 0.14 K/uL (0.00-0.50); Eosinophils Percent Auto 1.4 % (0.0-7.0); Hematocrit 35.6 % (33.0-51.0); Hemoglobin* 11.6 gm/dL (12.0-16.0); Immature Granulocytes Abs Auto 0.05 K/uL (0.00-0.30); Immature Granulocytes Pct Auto 0.5 %; Lymphocytes Percent Auto 17.5 % (20-44); Mean Corpuscular HGB Conc 33 gm/dL (32-36); Mean Corpuscular Hemoglobin 31 pg (26-34); Mean Corpuscular Volume 94 fL (80-100); Monocytes Percent Auto 10.7 % (0.0-11.0); Neutrophils Absolute Auto 6.72 K/uL (1.7-7.0); Neutrophils Percent Auto 68.7 % (42.0-72.0); Platelet Count* 492 K/uL (140-440); RDW Coefficient of Variation % 13.3 % (11.5-15.5); Red Blood Count 3.79 m/uL (4.00-5.20); White Blood Count* 9.79 K/uL (4.50-11.00)
[2022-07-10 16:00] LABS: Slide Review Reflex No
[2022-07-10 16:03] LABS: RBC Urine 0-2 (0-2)
[2022-07-10 16:04] LABS: WBC Urine 0-2 (0-5)
[2022-07-10 16:14] LABS: Chloride* 94 mmol/L (96-114)
[2022-07-10 16:15] LABS: Albumin* 4.1 g/dL (3.3-5.0); Sodium* 130 mmol/L (135-149)
[2022-07-10 16:16] LABS: Potassium* 3.8 mmol/L (3.6-5.1)
[2022-07-10 16:18] LABS: Alanine Aminotransferase* 16 U/L (4-35); Alkaline Phosphatase* 88 U/L (40-150); Aspartate Amino Transferase* 22 U/L (12-35); Bilirubin Direct* 0.2 mg/dL (0.0-0.5); Bilirubin Total* 0.4 mg/dL (0.1-1.5); Blood Urea Nitrogen* 12 mg/dL (7-30); Carbon Dioxide* 29 mmol/L (20-32); Creatinine* 0.6 mg/dL (0.5-1.5); Estimated Glomerular Filt Rate 92 ml/min; Total Protein* 7.8 g/dL (6.0-8.3)
[2022-07-10 16:19] LABS: Calcium* 9.1 mg/dL (8.4-10.6); Glucose* 97 mg/dL (60-115)
[2022-07-10 16:21] LABS: C Reactive Protein* 7.2 mg/dL (0.5-1.0)
[2022-07-10 16:30] VITALS: BP 106/68; RESP 16; O2SAT 96
--- NOTE | 2022-07-10 17:05 | CRLHL7_ITS ---
For Patients: As a result of the Century Cures Act, medical imaging exams and procedure reports are released immediately into your electronic medical record. You may view this report before your referring provider. If you have questions, please contact your health care provider. INDICATION: Shortness of breath. TECHNIQUE: CT chest PE was acquired with 95 cc Isovue 370 IV contrast. COMPARISON: June 29, 2022. FINDINGS: Heart and vasculature: Contrast opacification of the pulmonary arterial tree is adequate. No sign of pulmonary embolism. Stable heart, thoracic aorta, and pulmonary artery when compared to prior study. Lungs and pleura: Similar right pleural effusion with compressive atelectasis. Redemonstration of pulmonary nodules, thought to represent metastasis. Lymph nodes/mediastinum: Stable prominent mediastinal lymph nodes. Chest wall: No masses. Upper abdomen: Unchanged, including partial right hepatic resection and carcinomatosis. Bones: Unremarkable for age. IMPRESSION: No pulmonary embolism is questioned Stable right pleural effusion. Stable pulmonary nodules, thought to be metastasis. No significant interval change compared to prior study performed June 29, 2022. Please note that all CT scans at this facility use dose modulation, iterative reconstruction, and/or weight-based dosing when appropriate to reduce radiation dose to as low as reasonably achievable. Dictated by Heri Victor MD @ 07/10/2022 6:35:23 PM (Electronically Signed)
[2022-07-10 17:09] LABS: PCR FLU A Negative PCR FLU A (Negative); PCR FLU B Negative PCR FLU B (Negative)
[2022-07-10 17:16] LABS: SARS PCR* Negative SARS-CoV-2 (Negative)
[2022-07-10 17:23] LABS: Erythrocyte SedimentationRate* 88 mm/hr (2-20)
--- NOTE | 2022-07-10 17:44 | ED.GENADULT ---
HPI - General Adult General Chief complaint: Shortness of Breath/Dyspnea Stated complaint: From [facility] Time Seen by Provider: 07/10/22 15:12 Source: patient Mode of arrival: ambulatory Limitations: no limitations History of Present Illness HPI narrative: 77-year-old female coming in today complaining shortness of breath going on for about a month. However in the last couple of days has gotten worse. She states that this all started after she had a liver biopsy done. In the last couple days she can hardly do any physical activity as this causes her immediate shortness of breath. She denies any chest pain. She has a cough that is nonproductive that comes and goes. She denies any fevers or chills. No changes in her appetite. Lying down does not cause her to feel more short of breath. She denies any swelling to her extremities. She has been told the past that she has pleural effusions, she is unsure of why. Related Data Home Medications Medication Instructions Recorded Confirmed Lactobacillus acidophilus 1,000 mmu cells PO QDAY 02/24/22 06/30/22 acetaminophen 325 mg tablet 325 mg PO Q4H PRN 02/24/22 07/02/22 amlodipine 5 mg tablet 5 mg PO DAILY 02/24/22 07/02/22 amoxicillin 500 mg capsule 500 mg PO ONCE PRN 02/24/22 07/02/22 atenolol 50 mg tablet 50 mg PO .Bedtime 02/24/22 07/02/22 azelastine 137 mcg (0.1 %) nasal 2 intranasal PRN 02/24/22 06/30/22 spray aerosol calcium carbonate 200 mg calcium 200 mg PO QID PRN dyspepsia 02/24/22 07/02/22 (500 mg) chewable tablet (Antacid (calcium carbonate)) cholecalciferol (vitamin D3) 25 1,000 unit PO DAILY 02/24/22 07/02/22 mcg (1,000 unit) tablet cranberry 400 mg capsule 400 mg PO BID 02/24/22 07/02/22 docusate sodium 100 mg capsule 100 mg PO DAILY PRN 02/24/22 07/02/22 estradiol 0.01% (0.1 mg/gram) 1 vaginal DIRECTED 02/24/22 06/30/22 vaginal cream famotidine 20 mg tablet 20 mg PO BID 02/24/22 07/02/22 hydrochlorothiazide 25 mg tablet 25 mg PO DAILY 02/24/22 07/02/22 loratadine 10 mg tablet 10 mg PO .Daily as needed PRN 02/24/22 07/02/22 multivitamin 1 tab PO QAM 02/24/22 07/02/22 tramadol 50 mg tablet 25 mg PO Q6H PRN 07/02/22 07/02/22 Previous Rx's Medication Instructions Recorded loperamide 2 mg capsule 2 mg PO Q6H PRN loose stool #60 06/24/22 caps prochlorperazine maleate 5 mg 5 mg PO BID PRN nausea and 06/24/22 tablet (Compazine) vomiting #60 tabs hydrocodone 5 mg-acetaminophen 325 1 tab PO Q4-6H PRN pain #30 tabs 06/30/22 mg tablet levofloxacin 750 mg tablet 750 mg PO Q24H #7 tabs 06/30/22 Allergies Allergy/AdvReac Type Severity Reaction Status Date / Time erythromycin base Allergy Verified 07/10/22 14:59 nickel Allergy Verified 07/10/22 14:59 oxycodone Allergy Verified 07/10/22 14:59 Sulfa (Sulfonamide Allergy Verified 07/10/22 14:59 Antibiotics) Tetracyclines Allergy Verified 07/10/22 14:59 Review of Systems Status of ROS: Reports: 10 or more systems reviewed and unremarkable except as noted in History and below [facility] Medical History Adenocarcinoma of right lung (~2020) HTN (hypertension) Hyperlipidemia Surgical History H/O resection of liver (~02/2021) Social History Smoking Status: Former smoker Do you use any of these nicotine containing products: None Second hand tobacco smoke exposure: No How often do you have a drink containing alcohol: 2-4 times a month How many standard drinks containing alcohol do you have on a typical day: 1 or 2 How often do you have six or more drinks on one occasion: Never AUDIT-C Alcohol total score: 2 Non-prescribed substance use: denies use service: No Exam Narrative: Exam Narrative: Well-nourished well-developed patient in no acute distress. Alert and oriented. Answers questions appropriately. Mood and affect are appropriate. Thoughts are goal oriented and rational. No tangential or magical thinking noted. Patient speaks in full sentences without needing to catch her breath. Speech is not slurred or pressure. Voice sounds normal. HEENT: Normocephalic atraumatic. Pupils are equally round reactive to light. Extraocular muscles are intact. Conjunctivae are moist without any icterus noted. Moist mucous membranes. Posterior pharynx is normal. Neck is soft without any lymphadenopathy or thyromegaly. No masses are appreciated. Cardiovascular: Heart is regular rate and rhythm S1 and S2 are present without any murmurs. Lungs: Markedly decreased breath sounds on the right when compared to the left. No rhonchi or rales are appreciated. Abdomen: Soft and nontender nondistended with normal bowel sounds. No guarding or rebound. No masses or organomegaly appreciated. Extremities: Bilateral lower extremities are without edema. Normal DP and PT pulses. Skin: Well perfused. Patient has a resolving large ecchymosis over the right breast. Const: Vital Signs, click to edit/add: Vital Signs - 24 hr 07/10/22 14:59 07/10/22 16:30 Temperature 98.8 F Pulse Rate [Apical ] 84 Respiratory Rate 26 H 16 Blood Pressure [Le ft Upper Arm] 175/79 H 106/68 Pulse Oximetry 96 96 Oxygen Delivery Me thod Room Air Room Air Course Course Hospital Course: Chest x-ray done showing bilateral pleural effusions. Labs were done showing unremarkable CBC, elevated CRP and elevated D-dimer. Because of this we proceeded with a chest CT, PE protocol, which did not show any PE, did not show evidence of pneumonia and did not show any significant change from prior chest CT done on the of this month. This included bilateral pleural effusions and pulmonary nodules consistent with probable metastasis. Patient remained hemodynamically stable while she was here she did not have any hypoxia. Aside from shortness of breath with exertion she had no other symptoms and was requesting to go home. We discussed the possibility of this being cardiovascular related discussed doing an EKG and troponin, however patient felt that this is not the issue and we did not do any further testing. She states that she had an EKG recently and that her heart is fine. Of note chemistry show a low sodium at 130. Patient also had concerns about a possible UTI: Urinalysis did show 2+ blood however only 2-5 RBCs on microscopic. Otherwise unremarkable. Vital Signs Vital signs: Initial Vital Signs Temperature 98.8 F 07/10/22 14:59 Temperature Source Temporal Artery Scan 07/10/22 14:59 Pulse Rate 84 07/10/22 14:59 Pulse Rhythm 07/10/22 14:59 Respiratory Rate 26 H 07/10/22 14:59 Blood Pressure 175/79 H 07/10/22 14:59 Blood Pressure Mean 111 07/10/22 14:59 Blood Pressure Position Supine 07/10/22 14:59 Pulse Oximetry 96 07/10/22 14:59 Oxygen Delivery Method 07/10/22 14:59 Vital Signs Temperature 98.8 F 07/10/22 14:59 Pulse Rate 84 07/10/22 14:59 Respiratory Rate 26 H 07/10/22 14:59 Blood Pressure 175/79 H 07/10/22 14:59 Pulse Oximetry 96 07/10/22 14:59 Oxygen Delivery Method 07/10/22 14:59 Temperature 98.8 F 07/10/22 14:59 Pulse Rate 84 07/10/22 14:59 Respiratory Rate 16 07/10/22 16:30 Blood Pressure 106/68 07/10/22 16:30 Pulse Oximetry 96 07/10/22 16:30 Oxygen Delivery Method 07/10/22 16:30 Medical Decision Making MDM Narrative Medical decision making narrative: [age] year female with shortness of breath on exertion for 1 month, likely secondary to bilateral pleural effusions. She does have liver cancer with probable lung metastasis as well. At this point recommend outpatient workup and conversation with her oncologist and primary care provider for next steps. Differential Diagnosis Differential Diagnosis: Coronary artery disease, pneumonia, congestive heart failure Lab Data Lab results reviewed: Yes I reviewed the patient's lab results Labs: Lab Results 07/10/22 07/10/22 07/10/22 Range/Units 15:22 15:30 15:55 WBC 9.79 (4.50-11.00) K/uL RBC 3.79 L (4.00-5.20) m/uL Hgb 11.6 L (12.0-16.0) gm/dL Hct 35.6 (33.0-51.0) % MCV 94 (80-100) fL MCH 31 (26-34) pg MCHC 33 (32-36) gm/dL RDW Coeff of Elva 13.3 (11.5-15.5) % Plt Count 492 H (140-440) K/uL Neut % (Auto) 68.7 (42.0-72.0) % Lymph % (Auto) 17.5 L (20-44) % [place] % (Auto) 10.7 (0.0-11.0) % Eos % (Auto) 1.4 (0.0-7.0) % Baso % (Auto) 1.2 (0.0-3.0) % Neut # (Auto) 6.72 (1.7-7.0) K/uL Lymph # (Auto) 1.70 (0.90-2.90) K/uL [place] # (Auto) 1.00 H (0.00-0.90) K/UL Eos # (Auto) 0.14 (0.00-0.50) K/uL Baso # (Auto) 0.12 (0.00-0.30) K/uL Abs Immat Gran (auto) 0.05 (0.00-0.30) K/uL Imm/Tot Granulo (auto) 0.5 % ESR (2-20) mm/hr D-Dimer Quant (PE/DVT) (0.00-0.50) ug/ml Sodium 130 L (135-149) mmol/L Potassium 3.8 (3.6-5.1) mmol/L Chloride 94 L (96-114) mmol/L Carbon Dioxide 29 (20-32) mmol/L BUN 12 (7-30) mg/dL Creatinine 0.6 (0.5-1.5) mg/dL Estimated Creat Clear 33.30 Estimated GFR 92 ml/min Glucose 97 (60-115) mg/dL Lactate (0.5-1.9) mmol/L Calcium 9.1 (8.4-10.6) mg/dL Total Bilirubin 0.4 (0.1-1.5) mg/dL Direct Bilirubin 0.2 (0.0-0.5) mg/dL AST 22 (12-35) U/L ALT 16 (4-35) U/L Alkaline Phosphatase 88 (40-150) U/L C-Reactive Protein 7.2 H (0.5-1.0) mg/dL Total Protein 7.8 (6.0-8.3) g/dL Albumin 4.1 (3.3-5.0) g/dL Urine Color Yellow (Yellow) Urine Appearance Clear (Clear) Urine pH 7.0 (5.0-8.5) Ur Specific [place] 1.010 (1.000-1.030) Urine Protein Negative (Negative) Urine Glucose (UA) Negative (Negative) Urine Ketones Negative (Negative) Urine Blood 2+ A (Negative) Urine Nitrite Negative (Negative) Urine Bilirubin Negative (Negative) Urine Urobilinogen 0.2 (0.2-1.0) Ur Leukocyte Esterase Negative (Negative) Urine RBC 0-2 (0-2) Urine WBC 0-2 (0-5) Ur Squamous Epith Cells None (None-Few) Urine Bacteria None (None) SARS-CoV-2 (PCR) (Negative) Influenza Type A (PCR) (Negative) Influenza Type B (PCR) (Negative) 07/10/22 07/10/22 07/10/22 Range/Units 15:55 15:55 15:55 WBC (4.50-11.00) K/uL RBC (4.00-5.20) m/uL Hgb (12.0-16.0) gm/dL Hct (33.0-51.0) % MCV (80-100) fL MCH (26-34) pg MCHC (32-36) gm/dL RDW Coeff of Elva (11.5-15.5) % Plt Count (140-440) K/uL Neut % (Auto) (42.0-72.0) % Lymph % (Auto) (20-44) % [place] % (Auto) (0.0-11.0) % Eos % (Auto) (0.0-7.0) % Baso % (Auto) (0.0-3.0) % Neut # (Auto) (1.7-7.0) K/uL Lymph # (Auto) (0.90-2.90) K/uL [place] # (Auto) (0.00-0.90) K/UL Eos # (Auto) (0.00-0.50) K/uL Baso # (Auto) (0.00-0.30) K/uL Abs Immat Gran (auto) (0.00-0.30) K/uL Imm/Tot Granulo (auto) % ESR 88 H (2-20) mm/hr D-Dimer Quant (PE/DVT) 2.30 H (0.00-0.50) ug/ml Sodium (135-149) mmol/L Potassium (3.6-5.1) mmol/L Chloride (96-114) mmol/L Carbon Dioxide (20-32) mmol/L BUN (7-30) mg/dL Creatinine (0.5-1.5) mg/dL Estimated Creat Clear Estimated GFR ml/min Glucose (60-115) mg/dL Lactate 0.7 (0.5-1.9) mmol/L Calcium (8.4-10.6) mg/dL Total Bilirubin (0.1-1.5) mg/dL Direct Bilirubin (0.0-0.5) mg/dL AST (12-35) U/L ALT (4-35) U/L Alkaline Phosphatase (40-150) U/L C-Reactive Protein (0.5-1.0) mg/dL Total Protein (6.0-8.3) g/dL Albumin (3.3-5.0) g/dL Urine Color (Yellow) Urine Appearance (Clear) Urine pH (5.0-8.5) Ur Specific [place] (1.000-1.030) Urine Protein (Negative) Urine Glucose (UA) (Negative) Urine Ketones (Negative) Urine Blood (Negative) Urine Nitrite (Negative) Urine Bilirubin (Negative) Urine Urobilinogen (0.2-1.0) Ur Leukocyte Esterase (Negative) Urine RBC (0-2) Urine WBC (0-5) Ur Squamous Epith Cells (None-Few) Urine Bacteria (None) SARS-CoV-2 (PCR) (Negative) Influenza Type A (PCR) (Negative) Influenza Type B (PCR) (Negative) 07/10/22 Range/Units 16:03 WBC (4.50-11.00) K/uL RBC (4.00-5.20) m/uL Hgb (12.0-16.0) gm/dL Hct (33.0-51.0) % MCV (80-100) fL MCH (26-34) pg MCHC (32-36) gm/dL RDW Coeff of Elva (11.5-15.5) % Plt Count (140-440) K/uL Neut % (Auto) (42.0-72.0) % Lymph % (Auto) (20-44) % [place] % (Auto) (0.0-11.0) % Eos % (Auto) (0.0-7.0) % Baso % (Auto) (0.0-3.0) % Neut # (Auto) (1.7-7.0) K/uL Lymph # (Auto) (0.90-2.90) K/uL [place] # (Auto) (0.00-0.90) K/UL Eos # (Auto) (0.00-0.50) K/uL Baso # (Auto) (0.00-0.30) K/uL Abs Immat Gran (auto) (0.00-0.30) K/uL Imm/Tot Granulo (auto) % ESR (2-20) mm/hr D-Dimer Quant (PE/DVT) (0.00-0.50) ug/ml Sodium (135-149) mmol/L Potassium (3.6-5.1) mmol/L Chloride (96-114) mmol/L Carbon Dioxide (20-32) mmol/L BUN (7-30) mg/dL Creatinine (0.5-1.5) mg/dL Estimated Creat Clear Estimated GFR ml/min Glucose (60-115) mg/dL Lactate (0.5-1.9) mmol/L Calcium (8.4-10.6) mg/dL Total Bilirubin (0.1-1.5) mg/dL Direct Bilirubin (0.0-0.5) mg/dL AST (12-35) U/L ALT (4-35) U/L Alkaline Phosphatase (40-150) U/L C-Reactive Protein (0.5-1.0) mg/dL Total Protein (6.0-8.3) g/dL Albumin (3.3-5.0) g/dL Urine Color (Yellow) Urine Appearance (Clear) Urine pH (5.0-8.5) Ur Specific [place] (1.000-1.030) Urine Protein (Negative) Urine Glucose (UA) (Negative) Urine Ketones (Negative) Urine Blood (Negative) Urine Nitrite (Negative) Urine Bilirubin (Negative) Urine Urobilinogen (0.2-1.0) Ur Leukocyte Esterase (Negative) Urine RBC (0-2) Urine WBC (0-5) Ur Squamous Epith Cells (None-Few) Urine Bacteria (None) SARS-CoV-2 (PCR) Negative SARS-CoV-2 (Negative) Influenza Type A (PCR) Negative PCR FLU A (Negative) Influenza Type B (PCR) Negative PCR FLU B (Negative) Imaging Data Chest x-ray: Attestation: I have reviewed the pertinent imaging results. Radiologist's impression: Two-view chest June 30, 2022 Technique: Single AP view chest Findings: There is hyperinflation and chronic interstitial change. Persistent right greater than left basilar pleural effusions with adjacent compressive atelectasis versus infiltrates. Postoperative change of the right upper lobe and elevation of the minor fissure is again seen. The cardiac silhouette is mildly prominent. The bony thorax is grossly intact. Impression: Right greater than left basilar pleural effusion with adjacent compressive atelectasis versus infiltrates. CT scan - chest: Attestation: I have reviewed the pertinent imaging results. Radiologist's impression: CT chest PE was acquired with 95 cc Isovue 370 IV contrast. COMPARISON: June 29, 2022. FINDINGS: Heart and vasculature: Contrast opacification of the pulmonary arterial tree is adequate. No sign of pulmonary embolism. Stable heart, thoracic aorta, and pulmonary artery when compared to prior study. Lungs and pleura: Similar right pleural effusion with compressive atelectasis. Redemonstration of pulmonary nodules, thought to represent metastasis. Lymph nodes/mediastinum: Stable prominent mediastinal lymph nodes. Chest wall: No masses. Upper abdomen: Unchanged, including partial right hepatic resection and carcinomatosis. Bones: Unremarkable for age. IMPRESSION: No pulmonary embolism is questioned Stable right pleural effusion. Stable pulmonary nodules, thought to be metastasis. No significant interval change compared to prior study performed June 29, 2022. Discharge Plan Discharge Clinical Impression: Bilateral pleural effusion Patient Disposition: Home, Self-Care Condition: Stable Additional Instructions: Follow-up with your primary care provider and/or oncologist to discuss next steps regarding the pleural effusions and her shortness of breath. Of note no obvious evidence of UTI was noted today. Prescriptions: No Action cholecalciferol (vitamin D3) 25 mcg (1,000 unit) tablet 1,000 unit PO DAILY loratadine 10 mg tablet 10 mg PO .Daily as needed PRN atenolol 50 mg tablet 50 mg PO .Bedtime estradiol 0.01 % (0.1 mg/gram) cream 1 vaginal DIRECTED azelastine 137 mcg (0.1 %) aerosol,spray 2 intranasal PRN hydrochlorothiazide 25 mg tablet 25 mg PO DAILY docusate sodium 100 mg capsule 100 mg PO DAILY PRN famotidine 20 mg tablet 20 mg PO BID amlodipine 5 mg tablet 5 mg PO DAILY acetaminophen 325 mg tablet 325 mg PO Q4H PRN Rx Instructions: NO MORE THAN 4000 MG/DAY amoxicillin 500 mg capsule 500 mg PO ONCE PRN Rx Instructions: Take 4 capsules 1 HR PRIOR TO DENTAL APPT calcium carbonate [Antacid (calcium carbonate)] 200 mg calcium (500 mg) tablet,chewable 200 mg PO QID PRN (Reason: dyspepsia) cranberry 400 mg capsule 400 mg PO BID Rx Instructions: administer with meals multivitamin Tablet 1 tab PO QAM Lactobacillus acidophilus Capsule 1,000 mmu cells PO QDAY prochlorperazine maleate [Compazine] 5 mg tablet 5 mg PO BID PRN (Reason: nausea and vomiting) Qty: 60 0RF loperamide 2 mg capsule 2 mg PO Q6H PRN (Reason: loose stool) Qty: 60 0RF levofloxacin 750 mg tablet 750 mg PO Q24H Qty: 7 0RF hydrocodone-acetaminophen 5-325 mg tablet 1 tab PO Q4-6H PRN (Reason: pain) Qty: 30 0RF Rx Instructions: gets itchy with oxycodone; discussed with Madyson about hydrocodone, she will try benadryl if gets itchy tramadol 50 mg tablet 25 mg PO Q6H PRN Follow Up/Referrals: Diann Mcginnis PA [Primary Care Provider] - Stand Alone Forms: [facility] Info Instructions
[2022-07-11 01:44] LABS: NT Pro B Type NatriureticPept* 171 PG/mL (0-450)
== END 2022-07-10 19:35 | disposition home or self-care (01) ==
PROVIDERS: Emergency Provider Family Medicine; PCP Physician Assistant
DX: J90 Pleural effusion, not elsewhere classified (principal)
CPT/HCPCS: 36415; 71046; 71260; 80048; 80076; 81001; 83605; 83880; 85025; 85379; 85651; 86140; 87086; 87631; 99284; 99285; Q9967

== ENCOUNTER 2022-09-17 07:04 | Outpatient (CLI) | payer MEDICARE, SELFPAY ==
--- NOTE | 2022-09-17 07:15 | CRLHL7_ITS ---
For Patients: As a result of the Century Cures Act, medical imaging exams and procedure reports are released immediately into your electronic medical record. You may view this report before your referring provider. If you have questions, please contact your health care provider. Indication: Assess treatment response. Technique: Multiphasic, multisequence MRI of the abdomen, and pelvis without and with contrast. 15 mL of Dotrarem administered intravenously Comparison: MRI of the abdomen dated 05/1922 Findings: Non cirrhotic liver morphology. Previous partial resection of the right hepatic lobe. Previously seen nodularity in the peritoneum in the postoperative/hepatic flexure of the colon not well evaluated due to motion artifact, small lesions, however appears similar. Liver lesion in segment 7 is stable in size measuring approximately 2.0 x 2.3 cm slight new cystic change in heterogeneous enhancement may be related to treatment effect. Slightly heterogeneous diffusion restriction could be related to treatment effect as well. Bones appear stable. No ascites. Status post cholecystectomy. Minimal intra and extrahepatic bile duct prominence likely reservoir effect. No splenomegaly. Adrenal glands appear unremarkable. The adrenal glands appear normal. The kidneys enhance symmetrically without hydronephrosis. No suspicious lymphadenopathy within the abdomen. Wide neck abdominal hernia, recurrent, containing fat. Colonic diverticulosis. No bowel obstruction. Large left renal cyst. Severe atherosclerotic disease. The urinary bladder is unremarkable. Impression: 1. Stable liver lesion in segment 7 measuring 2.3 cm by Resist 1.1 criteria. Changes in the tumor could be related to treatment effect however. 2. Previously seen nodularity in the peritoneum in the postoperative/hepatic flexure of the colon not well evaluated due to motion artifact, small lesions, however appears similar. Dictated by Elton Pizano MD @ 09/19/2022 10:41:49 AM (Electronically Signed)
--- NOTE | 2022-09-17 10:00 | CRLHL7_ITS ---
For Patients: As a result of the Century Cures Act, medical imaging exams and procedure reports are released immediately into your electronic medical record. You may view this report before your referring provider. If you have questions, please contact your health care provider. Indication: ADENOCARCINOMA OF RIGHT LUNG Technique: Post contrast CT chest. 75 cc Isovue 370 intravenous contrast. Please note that all CT scans at this facility use dose modulation, iterative reconstruction, and/or weight-based dosing when appropriate to reduce radiation dose to as low as reasonably achievable. Comparison: 07/10/2022 Findings: Interval development of multiple nodular densities within the anterior aspect of the left upper lobe measuring up to 12 millimeters. Stable focal ground-glass density within upper lungs. Postoperative changes of right upper lobectomy. Decreased right pleural effusion. Trace residual effusion noted. Stable nodular density right lung base measuring 7 millimeters. Stable reticulonodular densities anterior right lung. Stable nodular density within the right upper lung measuring 7.6 millimeters. Decreased size of previously noted nodule within the right lateral lung. Degenerative changes lower thoracic spine. Atherosclerotic disease. No suspicious osseous lesion. Small hiatal hernia. No intrathoracic adenopathy. Bilateral breast tissue appears normal. Postop changes to the liver. Impression: New clustered nodular densities within the anterior left lung measuring up to 12 millimeters. Similar nodular densities elsewhere although 1 of the nodules in the right lateral lung has diminished in size. Decreased right pleural effusion with trace residual effusion noted. No intrathoracic adenopathy. Stable focal ground-glass densities in both upper lungs. Please note that all CT scans at this facility use dose modulation, iterative reconstruction, and/or weight-based dosing when appropriate to reduce radiation dose to as low as reasonably achievable. Dictated by Alexander Cuenca MD @ 09/18/2022 9:20:53 AM (Electronically Signed)
== END 2022-09-17 07:05 | disposition home or self-care (01) ==
LOC: MRI 07:06
PROVIDERS: PCP Physician Assistant; Visit Provider Physician Assistant
DX: C34.91 Malignant neoplasm of unspecified part of right bronchus or lung (principal); C22.9 Malignant neoplasm of liver, not specified as primary or secondary
CPT/HCPCS: 71260; 72197; 74183; A9575; Q9967

== ENCOUNTER 2022-11-19 08:45 | Outpatient (RCR) | payer MEDICARE, SELFPAY ==
--- NOTE | 2022-06-25 14:31 | URNOTE ---
Received request for prior auth for Imfinzi ([id number]). This has been approved 1500 mg every 28 days for 14 doses, 07/07/2022-07/06/2023. auth # [id number]
--- NOTE | 2022-06-29 12:54 | ONC.NURNOTE ---
Called patient to set up patient for her durvalumab infusions. Many questions were answered. She is currently being seen in ER for SOB and pain at incision. She will call the office back once she is at home to set up an appointment.
--- NOTE | 2022-07-01 09:52 | URNOTE ---
Received request for prior auth for Tremelimumab. Per [facility] on behalf of [facility], prior authorization is not required.
[2022-07-02 09:05] VITALS: BP 129/71; PULSE 70; RESP 16; TEMP 36.6; O2SAT 96
--- NOTE | 2022-07-02 09:33 | ONC.NURNOTE ---
Patient states the Oxycodone made her unable to sleep/restless and itchy so she is taking her Tramadol she had already and that works well for her and always has.
[2022-07-02] MEDS: diphenhydrAMINE 25 MG CAPSULE 50 MG PO (10:17)
[2022-07-02] MEDS: DURVALUMAB 1,500 MG, TUBING PRIMARY 1 EACH, In-line 0.2 micron filter set 1 EACH in 0.9... 280 MG IVPB (10:50)
--- NOTE | 2022-07-02 13:05 | ONC.NURNOTE ---
new immunotherapy teaching done: with patient and her reviewed immunotherapy possible side effects reviewed contents of new treatment info binder reviewed after hours management of fever or other acute changes - including diarrhea patient with many questions about managing side effects questions addressed, consent and WALE forms discussed and signed over an hour spent with teaching
--- NOTE | 2022-07-02 13:42 | ONC.NURNOTE ---
Pt here for Yumi today. VSS. No concerns this am. Pt instructed to take Compazine prn nausea. Pt verbalized understanding of plan of care. [facility] RN will call pt on 07/03/22 to follow up 1st Yumi.
--- NOTE | 2022-07-03 09:46 | PC.NURSE ---
Called pt today to check in after her first Imfinzi treatment yesterday, 07/02/2022. Pt states she is feeling better than she has for a few days. Slept well. Pt is coughing way less and is having less chest pain. She wonders if that is from the treatment or the antibiotics. RN assured her likely from antibiotics as her treatment was just yesterday. Pt has no nausea or diarrhea. She was vacuuming her home when this fha underwriter called. Madyson asked about having antibiotics or steroids on hand for her upcoming travel in case her cough would come back or she would develop UTI symptoms. Pt is going to [place] on 07/14/2022 and to [place] on 10/02/2022. Rn advised pt to call [facility] if she has concerning symptoms on her travels and we can triage over the phone if that should be necessary.
--- NOTE | 2022-07-10 13:31 | ONC.NURNOTE ---
Pt called today with concerns of worsening shortness of breath, cough, and symptoms of bladder infection (increased frequency and bladder irritation). Pt states the Levaquin she was on before -done on 07/07/22 seemed to help her symptoms. Pt states since receiving the Imfinzi last week the SOB is worse. [employer] discussed symptoms with Ita Suero APRN and it is recommended pt be seen by primary care today or be evaluated by an ER physician today. Pt verbalized understanding of plan of care. [employer] spoke with [facility] RN to give her an update.
[2022-07-29 10:03] LABS: Basophils Absolute Auto 0.04 K/uL (0.00-0.30); Basophils Percent Auto 0.5 % (0.0-3.0); Eosinophils Absolute Auto 0.23 K/uL (0.00-0.50); Eosinophils Percent Auto 2.8 % (0.0-7.0); Hematocrit 38.6 % (33.0-51.0); Hemoglobin* 12.6 gm/dL (12.0-16.0); Immature Granulocytes Abs Auto 0.05 K/uL (0.00-0.30); Immature Granulocytes Pct Auto 0.6 %; Lymphocytes Percent Auto 19.4 % (20-44); Mean Corpuscular HGB Conc 33 gm/dL (32-36); Mean Corpuscular Hemoglobin 30 pg (26-34); Mean Corpuscular Volume 92 fL (80-100); Monocytes Percent Auto 10.8 % (0.0-11.0); Neutrophils Absolute Auto 5.41 K/uL (1.7-7.0); Neutrophils Percent Auto 65.9 % (42.0-72.0); Platelet Count* 460 K/uL (140-440); RDW Coefficient of Variation % 13.7 % (11.5-15.5); Red Blood Count 4.19 m/uL (4.00-5.20); White Blood Count* 8.21 K/uL (4.50-11.00)
[2022-07-29 10:04] LABS: Slide Review Reflex No
[2022-07-29 10:15] LABS: Albumin* 4.3 g/dL (3.3-5.0); Chloride* 98 mmol/L (96-114); Potassium* 3.3 mmol/L (3.6-5.1); Sodium* 134 mmol/L (135-149)
[2022-07-29 10:18] LABS: Alanine Aminotransferase* 17 U/L (4-35); Alkaline Phosphatase* 78 U/L (40-150); Aspartate Amino Transferase* 27 U/L (12-35); Bilirubin Total* 0.5 mg/dL (0.1-1.5); Blood Urea Nitrogen* 14 mg/dL (7-30); Carbon Dioxide* 29 mmol/L (20-32); Creatinine* 0.8 mg/dL (0.5-1.5); Estimated Glomerular Filt Rate 75 ml/min; Glucose* 114 mg/dL (60-115); Total Protein* 7.9 g/dL (6.0-8.3)
[2022-07-29 10:19] LABS: Calcium* 9.5 mg/dL (8.4-10.6)
[2022-07-30 12:58] VITALS: BP 136/77; PULSE 79; RESP 16; TEMP 36.2; O2SAT 95
[2022-07-30] MEDS: DURVALUMAB 1,500 MG, TUBING PRIMARY 1 EACH, In-line 0.2 micron filter set 1 EACH in 0.9... 280 MG IVPB (15:35)
[2022-07-30] MEDS: SODIUM CHLORIDE 0.9 % (FLUSH) 10 ML SYRINGE IVF (15:59)
[2022-07-30] MEDS: 0.9 % SODIUM CHLORIDE 250 ml IV (15:59)
[2022-07-31 05:06] LABS: Cortisol, Serum 13.4 ug/dL
[2022-08-27 08:00] LABS: Basophils Absolute Auto 0.09 K/uL (0.00-0.30); Basophils Percent Auto 1.3 % (0.0-3.0); Eosinophils Absolute Auto 0.24 K/uL (0.00-0.50); Eosinophils Percent Auto 3.5 % (0.0-7.0); Hematocrit 39.8 % (33.0-51.0); Immature Granulocytes Abs Auto 0.03 K/uL (0.00-0.30); Immature Granulocytes Pct Auto 0.4 %; Lymphocytes Percent Auto 24.5 % (20-44); Mean Corpuscular HGB Conc 33 gm/dL (32-36); Mean Corpuscular Hemoglobin 30 pg (26-34); Mean Corpuscular Volume 92 fL (80-100); Monocytes Percent Auto 7.9 % (0.0-11.0); Neutrophils Absolute Auto 4.34 K/uL (1.7-7.0); Neutrophils Percent Auto 62.4 % (42.0-72.0); Platelet Count* 337 K/uL (140-440); RDW Coefficient of Variation % 14.8 % (11.5-15.5); Red Blood Count 4.34 m/uL (4.00-5.20); White Blood Count* 6.95 K/uL (4.50-11.00)
[2022-08-27 08:02] LABS: Slide Review Reflex No
[2022-08-27 08:17] LABS: Potassium* 3.5 mmol/L (3.6-5.1)
[2022-08-27 08:19] LABS: Aspartate Amino Transferase* 32 U/L (12-35); Bilirubin Total* 0.5 mg/dL (0.1-1.5); Carbon Dioxide* 30 mmol/L (20-32); Creatinine* 0.8 mg/dL (0.5-1.5); Estimated Glomerular Filt Rate 75 ml/min
[2022-08-27 08:20] LABS: Alanine Aminotransferase* 21 U/L (4-35); Calcium* 9.3 mg/dL (8.4-10.6); Glucose* 114 mg/dL (60-115); Total Protein* 7.9 g/dL (6.0-8.3)
[2022-08-27 08:25] LABS: Albumin* 4.5 g/dL (3.3-5.0); Chloride* 101 mmol/L (96-114)
[2022-08-27 08:26] LABS: Sodium* 136 mmol/L (135-149)
[2022-08-27 08:29] LABS: Alkaline Phosphatase* 72 U/L (40-150); Blood Urea Nitrogen* 16 mg/dL (7-30)
[2022-08-27] MEDS: DURVALUMAB 1,500 MG, TUBING PRIMARY 1 EACH, In-line 0.2 micron filter set 1 EACH in 0.9... 280 MG IVPB (09:49)
[2022-08-27] MEDS: 0.9 % SODIUM CHLORIDE 250 ml IV (09:49)
[2022-08-28 17:09] LABS: Alpha Fetoprotein Tumor Marker 8 ng/mL (0-9)
[2022-08-28 23:50] LABS: Cortisol, Serum 17.1 ug/dL
--- NOTE | 2022-08-31 15:15 | PC.NURSE ---
Madyson called today for tumor marker results. RN shared result but did not offer any further interpretation. Pt asked what her previous results were, RN looked in the archives of the previous EMR and shared those older results with pt. Madyson then asked if Dr. Sims was going to want another Signatera Test done. RN will run this past Dr. Tanner who she is seeing in September. Support offered.
[2022-09-23 08:04] LABS: Basophils Absolute Auto 0.07 K/uL (0.00-0.30); Basophils Percent Auto 1.2 % (0.0-3.0); Eosinophils Absolute Auto 0.28 K/uL (0.00-0.50); Eosinophils Percent Auto 4.7 % (0.0-7.0); Hematocrit 40.2 % (33.0-51.0); Hemoglobin* 12.9 gm/dL (12.0-16.0); Immature Granulocytes Abs Auto 0.02 K/uL (0.00-0.30); Immature Granulocytes Pct Auto 0.3 %; Lymphocytes Absolute Auto 1.53 K/uL (0.90-2.90); Lymphocytes Percent Auto 25.8 % (20-44); Mean Corpuscular HGB Conc 32 gm/dL (32-36); Mean Corpuscular Hemoglobin 30 pg (26-34); Mean Corpuscular Volume 93 fL (80-100); Monocytes Percent Auto 7.6 % (0.0-11.0); Neutrophils Absolute Auto 3.59 K/uL (1.7-7.0); Neutrophils Percent Auto 60.4 % (42.0-72.0); Platelet Count* 323 K/uL (140-440); RDW Coefficient of Variation % 15.5 % (11.5-15.5); Red Blood Count 4.34 m/uL (4.00-5.20); White Blood Count* 5.94 K/uL (4.50-11.00)
[2022-09-23 08:07] LABS: Slide Review Reflex No
[2022-09-23 08:22] LABS: Albumin* 4.1 g/dL (3.3-5.0); Chloride* 103 mmol/L (96-114); Potassium* 3.8 mmol/L (3.6-5.1); Sodium* 136 mmol/L (135-149)
[2022-09-23 08:24] LABS: Creatinine* 0.7 mg/dL (0.5-1.5); Estimated Glomerular Filt Rate 88 ml/min
[2022-09-23 08:25] LABS: Alanine Aminotransferase* 20 U/L (4-35); Alkaline Phosphatase* 60 U/L (40-150); Aspartate Amino Transferase* 32 U/L (12-35); Bilirubin Total* 0.4 mg/dL (0.1-1.5); Blood Urea Nitrogen* 14 mg/dL (7-30); Calcium* 8.9 mg/dL (8.4-10.6); Carbon Dioxide* 28 mmol/L (20-32); Glucose* 144 mg/dL (60-115); Total Protein* 7.5 g/dL (6.0-8.3)
[2022-09-24] MEDS: DURVALUMAB 1,500 MG, TUBING PRIMARY 1 EACH, In-line 0.2 micron filter set 1 EACH in 0.9... 280 MG IVPB (09:58)
[2022-09-24] MEDS: SODIUM CHLORIDE 0.9 % (FLUSH) 10 ML SYRINGE IVF (09:58)
[2022-09-24] MEDS: 0.9 % SODIUM CHLORIDE 250 ml IV (09:59)
[2022-09-24 21:40] LABS: Cortisol, Serum 16.5 ug/dL
[2022-10-22 09:27] LABS: Basophils Absolute Auto 0.09 K/uL (0.00-0.30); Basophils Percent Auto 1.2 % (0.0-3.0); Eosinophils Absolute Auto 0.27 K/uL (0.00-0.50); Eosinophils Percent Auto 3.6 % (0.0-7.0); Hematocrit 39.6 % (33.0-51.0); Hemoglobin* 12.8 gm/dL (12.0-16.0); Immature Granulocytes Abs Auto 0.02 K/uL (0.00-0.30); Immature Granulocytes Pct Auto 0.3 %; Lymphocytes Absolute Auto 1.75 K/uL (0.90-2.90); Lymphocytes Percent Auto 23.1 % (20-44); Mean Corpuscular HGB Conc 32 gm/dL (32-36); Mean Corpuscular Hemoglobin 30 pg (26-34); Mean Corpuscular Volume 92 fL (80-100); Monocytes Percent Auto 9.6 % (0.0-11.0); Neutrophils Absolute Auto 4.73 K/uL (1.7-7.0); Neutrophils Percent Auto 62.2 % (42.0-72.0); Platelet Count* 370 K/uL (140-440); RDW Coefficient of Variation % 15.1 % (11.5-15.5); Red Blood Count 4.32 m/uL (4.00-5.20); White Blood Count* 7.59 K/uL (4.50-11.00)
[2022-10-22 09:41] LABS: Albumin* 4.1 g/dL (3.3-5.0); Chloride* 98 mmol/L (96-114)
[2022-10-22 09:42] LABS: Potassium* 3.9 mmol/L (3.6-5.1); Sodium* 132 mmol/L (135-149)
[2022-10-22 09:44] LABS: Aspartate Amino Transferase* 23 U/L (12-35); Bilirubin Total* 0.4 mg/dL (0.1-1.5); Carbon Dioxide* 27 mmol/L (20-32); Creatinine* 0.7 mg/dL (0.5-1.5); Estimated Glomerular Filt Rate 88 ml/min
[2022-10-22 09:45] LABS: Alanine Aminotransferase* 19 U/L (4-35); Alkaline Phosphatase* 62 U/L (40-150); Blood Urea Nitrogen* 15 mg/dL (7-30); Calcium* 9.2 mg/dL (8.4-10.6); Glucose* 105 mg/dL (60-115); Total Protein* 7.7 g/dL (6.0-8.3)
[2022-10-22 09:52] VITALS: BP 129/68; PULSE 79; RESP 16; TEMP 36.2; O2SAT 95
[2022-10-22 10:12] LABS: Slide Review Reflex No
[2022-10-22 10:31] LABS: Thyroid Stimulating Hormone* 0.458 uIU/mL (0.270-4.20)
[2022-10-22] MEDS: DURVALUMAB 1,500 MG, TUBING PRIMARY 1 EACH, In-line 0.2 micron filter set 1 EACH in 0.9... 280 MG IVPB (11:47)
[2022-10-24 00:17] LABS: Cortisol, Serum 8.7 ug/dL
--- NOTE | 2022-11-04 10:15 | ONC.NURNOTE ---
Patient was seen by oncologist weeks ago and local liver therapy option was discussed. Patient has stopped by multiple times to inquire on status, teletypewriter installer sent email to Dr. Tanner to get an update yesterday. The following was relayed to teletypewriter installer: [place] team is wanting to present patient at [facility], they are looking for a date for this. Dr. Tanner notes further that she will contact patient today to fill her in on this. [place] [facility] Technician contacted patient to let her know to expect a phone call in next day or two from her.
[2022-11-16 09:13] LABS: Basophils Absolute Auto 0.07 K/uL (0.00-0.30); Eosinophils Percent Auto 2.8 % (0.0-7.0); Hematocrit 42.1 % (33.0-51.0); Hemoglobin* 13.8 gm/dL (12.0-16.0); Immature Granulocytes Abs Auto 0.08 K/uL (0.00-0.30); Immature Granulocytes Pct Auto 1.1 %; Lymphocytes Absolute Auto 1.64 K/uL (0.90-2.90); Lymphocytes Percent Auto 23.2 % (20-44); Mean Corpuscular HGB Conc 33 gm/dL (32-36); Mean Corpuscular Hemoglobin 30 pg (26-34); Mean Corpuscular Volume 92 fL (80-100); Monocytes Percent Auto 10.5 % (0.0-11.0); Neutrophils Absolute Auto 4.34 K/uL (1.7-7.0); Neutrophils Percent Auto 61.4 % (42.0-72.0); Platelet Count* 311 K/uL (140-440); RDW Coefficient of Variation % 14.1 % (11.5-15.5); Red Blood Count 4.59 m/uL (4.00-5.20); White Blood Count* 7.07 K/uL (4.50-11.00)
[2022-11-16 09:15] LABS: Slide Review Reflex No
[2022-11-16 09:30] LABS: Chloride* 97 mmol/L (96-114)
[2022-11-16 09:31] LABS: Albumin* 4.4 g/dL (3.3-5.0); Potassium* 3.6 mmol/L (3.6-5.1); Sodium* 134 mmol/L (135-149)
[2022-11-16 09:33] LABS: Creatinine* 0.8 mg/dL (0.5-1.5); Estimated Glomerular Filt Rate 75 ml/min
[2022-11-16 09:34] LABS: Alanine Aminotransferase* 19 U/L (4-35); Alkaline Phosphatase* 63 U/L (40-150); Aspartate Amino Transferase* 25 U/L (12-35); Bilirubin Total* 0.6 mg/dL (0.1-1.5); Blood Urea Nitrogen* 15 mg/dL (7-30); Carbon Dioxide* 30 mmol/L (20-32); Glucose* 105 mg/dL (60-115); Total Protein* 8.2 g/dL (6.0-8.3)
[2022-11-16 09:35] LABS: Calcium* 9.4 mg/dL (8.4-10.6)
[2022-11-17 18:57] LABS: Alpha Fetoprotein Tumor Marker 5 ng/mL (0-9)
[2022-11-18 12:34] LABS: Cortisol, Serum 14.7 ug/dL
[2022-11-19] MEDS: SODIUM CHLORIDE 0.9 % (FLUSH) 10 ML SYRINGE IVF (10:40)
[2022-11-19] MEDS: DURVALUMAB 1,500 MG, TUBING PRIMARY 1 EACH, In-line 0.2 micron filter set 1 EACH in 0.9... 280 MG IVPB (10:40)
[2022-11-19] MEDS: 0.9 % SODIUM CHLORIDE 250 ml IV (10:40)
== END 2022-11-23 23:59 | disposition home or self-care (01) ==
LOC: CCIC 08:45
PROVIDERS: Clinical Nurse Specialist; PCP Physician Assistant; Referring Provider Physician Assistant; Visit Provider Internal Medicine Hematology & Oncology
DX: C22.9 Malignant neoplasm of liver, not specified as primary or secondary (principal); C34.11 Malignant neoplasm of upper lobe, right bronchus or lung; E87.1 Hypo-osmolality and hyponatremia; Z87.891 Personal history of nicotine dependence
CPT/HCPCS: 36415; 80053; 82105; 82533; 84443; 85025; 96413; 96417; 99211; 99212; 99213; 99214; 99215; A9270; J3490; J7050; J9173

== ENCOUNTER 2023-06-17 08:30 | Outpatient (RCR) | payer MEDICARE, SELFPAY ==
[2022-12-21 08:04] LABS: Basophils Absolute Auto 0.06 K/uL (0.00-0.30); Basophils Percent Auto 0.8 % (0.0-3.0); Eosinophils Absolute Auto 0.22 K/uL (0.00-0.50); Eosinophils Percent Auto 2.8 % (0.0-7.0); Hematocrit 37.5 % (33.0-51.0); Hemoglobin* 12.3 gm/dL (12.0-16.0); Immature Granulocytes Abs Auto 0.04 K/uL (0.00-0.30); Immature Granulocytes Pct Auto 0.5 %; Lymphocytes Percent Auto 17.3 % (20-44); Mean Corpuscular HGB Conc 33 gm/dL (32-36); Mean Corpuscular Hemoglobin 31 pg (26-34); Mean Corpuscular Volume 94 fL (80-100); Monocytes Percent Auto 8.5 % (0.0-11.0); Neutrophils Absolute Auto 5.48 K/uL (1.7-7.0); Neutrophils Percent Auto 70.1 % (42.0-72.0); Platelet Count* 301 K/uL (140-440); RDW Coefficient of Variation % 14.2 % (11.5-15.5); Slide Review Reflex No; White Blood Count* 7.81 K/uL (4.50-11.00)
[2022-12-21 08:19] LABS: Albumin* 4.1 g/dL (3.3-5.0); Chloride* 95 mmol/L (96-114); Potassium* 3.3 mmol/L (3.6-5.1); Sodium* 134 mmol/L (135-149)
[2022-12-21 08:22] LABS: Alkaline Phosphatase* 74 U/L (40-150); Aspartate Amino Transferase* 31 U/L (12-35); Bilirubin Total* 0.6 mg/dL (0.1-1.5); Blood Urea Nitrogen* 14 mg/dL (7-30); Carbon Dioxide* 33 mmol/L (20-32); Creatinine* 0.7 mg/dL (0.5-1.5); Estimated Glomerular Filt Rate 88 ml/min; Glucose* 134 mg/dL (60-115); Total Protein* 7.6 g/dL (6.0-8.3)
[2022-12-21 08:23] LABS: Alanine Aminotransferase* 61 U/L (4-35); Calcium* 9.3 mg/dL (8.4-10.6)
[2022-12-21] MEDS: DURVALUMAB 1,500 MG, TUBING PRIMARY 1 EACH, In-line 0.2 micron filter set 1 EACH in 0.9... 280 MG IVPB (09:43)
[2023-01-18 08:38] LABS: Basophils Absolute Auto 0.08 K/uL (0.00-0.30); Basophils Percent Auto 1.3 % (0.0-3.0); Eosinophils Absolute Auto 0.34 K/uL (0.00-0.50); Eosinophils Percent Auto 5.6 % (0.0-7.0); Hematocrit 41.6 % (33.0-51.0); Hemoglobin* 13.6 gm/dL (12.0-16.0); Immature Granulocytes Abs Auto 0.02 K/uL (0.00-0.30); Immature Granulocytes Pct Auto 0.3 %; Lymphocytes Absolute Auto 1.53 K/uL (0.90-2.90); Mean Corpuscular HGB Conc 33 gm/dL (32-36); Mean Corpuscular Hemoglobin 31 pg (26-34); Mean Corpuscular Volume 93 fL (80-100); Monocytes Percent Auto 10.3 % (0.0-11.0); Neutrophils Absolute Auto 3.52 K/uL (1.7-7.0); Neutrophils Percent Auto 57.5 % (42.0-72.0); Platelet Count* 280 K/uL (140-440); Red Blood Count 4.46 m/uL (4.00-5.20); White Blood Count* 6.12 K/uL (4.50-11.00)
[2023-01-18 08:40] LABS: Slide Review Reflex No
[2023-01-18 08:54] LABS: Albumin* 4.5 g/dL (3.3-5.0); Chloride* 96 mmol/L (96-114); Sodium* 136 mmol/L (135-149)
[2023-01-18 08:55] LABS: Potassium* 3.3 mmol/L (3.6-5.1)
[2023-01-18 08:57] LABS: Alanine Aminotransferase* 20 U/L (4-35); Alkaline Phosphatase* 59 U/L (40-150); Aspartate Amino Transferase* 26 U/L (12-35); Bilirubin Total* 0.4 mg/dL (0.1-1.5); Blood Urea Nitrogen* 16 mg/dL (7-30); Carbon Dioxide* 31 mmol/L (20-32); Creatinine* 0.8 mg/dL (0.5-1.5); Estimated Glomerular Filt Rate 75 ml/min; Glucose* 101 mg/dL (60-115); Total Protein* 8.2 g/dL (6.0-8.3)
[2023-01-18 08:58] LABS: Calcium* 10.1 mg/dL (8.4-10.6)
[2023-01-19 08:10] VITALS: BP 114/67; PULSE 73; RESP 16; TEMP 36.3; O2SAT 96
[2023-01-19] MEDS: DURVALUMAB 1,500 MG, TUBING PRIMARY 1 EACH, In-line 0.2 micron filter set 1 EACH in 0.9... 280 MG IVPB (08:43)
[2023-01-20 02:55] LABS: Cortisol, Serum 12.4 ug/dL
[2023-02-15 08:25] LABS: Basophils Absolute Auto 0.07 K/uL (0.00-0.30); Basophils Percent Auto 1.1 % (0.0-3.0); Eosinophils Absolute Auto 0.38 K/uL (0.00-0.50); Eosinophils Percent Auto 6.2 % (0.0-7.0); Hemoglobin* 13.3 gm/dL (12.0-16.0); Immature Granulocytes Abs Auto 0.01 K/uL (0.00-0.30); Immature Granulocytes Pct Auto 0.2 %; Lymphocytes Absolute Auto 1.36 K/uL (0.90-2.90); Lymphocytes Percent Auto 22.1 % (20-44); Mean Corpuscular HGB Conc 32 gm/dL (32-36); Mean Corpuscular Hemoglobin 31 pg (26-34); Mean Corpuscular Volume 95 fL (80-100); Neutrophils Absolute Auto 3.84 K/uL (1.7-7.0); Neutrophils Percent Auto 62.4 % (42.0-72.0); Platelet Count* 289 K/uL (140-440); Red Blood Count 4.34 m/uL (4.00-5.20); White Blood Count* 6.15 K/uL (4.50-11.00)
[2023-02-15 08:27] LABS: Slide Review Reflex No
[2023-02-15 08:51] LABS: Albumin* 2.4 g/dL (3.3-5.0); Chloride* 97 mmol/L (96-114); Sodium* 134 mmol/L (135-149)
[2023-02-15 08:52] LABS: Potassium* 3.5 mmol/L (3.6-5.1)
[2023-02-15 08:54] LABS: Alanine Aminotransferase* 20 U/L (4-35); Alkaline Phosphatase* 62 U/L (40-150); Aspartate Amino Transferase* 24 U/L (12-35); Bilirubin Total* 0.4 mg/dL (0.1-1.5); Blood Urea Nitrogen* 20 mg/dL (7-30); Carbon Dioxide* 30 mmol/L (20-32); Creatinine* 0.8 mg/dL (0.5-1.5); Estimated Glomerular Filt Rate 75 ml/min; Glucose* 130 mg/dL (60-115); Total Protein* 7.9 g/dL (6.0-8.3)
[2023-02-15 08:55] LABS: Calcium* 9.2 mg/dL (8.4-10.6)
[2023-02-18 12:36] LABS: Alpha Fetoprotein Tumor Marker 4 ng/mL (0-9)
[2023-02-19 02:13] LABS: Cortisol, Serum 15.4 ug/dL
[2023-02-19] MEDS: DURVALUMAB 1,500 MG, TUBING PRIMARY 1 EACH, In-line 0.2 micron filter set 1 EACH in 0.9... 280 MG IVPB (09:22)
[2023-03-16 07:46] LABS: Basophils Absolute Auto 0.06 K/uL (0.00-0.30); Eosinophils Absolute Auto 0.39 K/uL (0.00-0.50); Eosinophils Percent Auto 6.3 % (0.0-7.0); Hematocrit 41.9 % (33.0-51.0); Hemoglobin* 13.6 gm/dL (12.0-16.0); Immature Granulocytes Abs Auto 0.01 K/uL (0.00-0.30); Immature Granulocytes Pct Auto 0.2 %; Lymphocytes Absolute Auto 1.62 K/uL (0.90-2.90); Lymphocytes Percent Auto 26.2 % (20-44); Mean Corpuscular HGB Conc 33 gm/dL (32-36); Mean Corpuscular Hemoglobin 31 pg (26-34); Mean Corpuscular Volume 94 fL (80-100); Monocytes Percent Auto 10.8 % (0.0-11.0); Neutrophils Absolute Auto 3.43 K/uL (1.7-7.0); Neutrophils Percent Auto 55.5 % (42.0-72.0); Platelet Count* 292 K/uL (140-440); Red Blood Count 4.44 m/uL (4.00-5.20); White Blood Count* 6.18 K/uL (4.50-11.00)
[2023-03-16 07:54] LABS: Slide Review Reflex No
[2023-03-16 08:01] LABS: Albumin* 4.2 g/dL (3.3-5.0); Chloride* 98 mmol/L (96-114); Potassium* 3.4 mmol/L (3.6-5.1); Sodium* 136 mmol/L (135-149)
[2023-03-16 08:04] LABS: Alanine Aminotransferase* 19 U/L (4-35); Alkaline Phosphatase* 57 U/L (40-150); Aspartate Amino Transferase* 26 U/L (12-35); Bilirubin Total* 0.4 mg/dL (0.1-1.5); Blood Urea Nitrogen* 18 mg/dL (7-30); Carbon Dioxide* 31 mmol/L (20-32); Creatinine* 0.8 mg/dL (0.5-1.5); Estimated Glomerular Filt Rate 75 ml/min; Glucose* 110 mg/dL (60-115); Total Protein* 7.8 g/dL (6.0-8.3)
[2023-03-16 08:05] LABS: Calcium* 9.5 mg/dL (8.4-10.6)
[2023-03-17 21:30] LABS: Cortisol, Serum 14.7 ug/dL
[2023-03-19 08:09] VITALS: BP 134/66; PULSE 71; RESP 18; TEMP 36.4; O2SAT 96
[2023-03-19] MEDS: DURVALUMAB 1,500 MG, TUBING PRIMARY 1 EACH, In-line 0.2 micron filter set 1 EACH in 0.9... 280 MG IVPB (08:36)
--- NOTE | 2023-03-19 12:18 | PC.NURSE ---
Pt present today at [facility] for Imfinzi infusion. When scheduling next visits, Madyson shared that she is having labs, scans, and MD visit with hepatology at [facility] in [place] on 04/16/2023. Pt is due for Imfinzi that day. Madyson is scheduled for labs, MD, and Imfinzi at [facility] on 04/20/2023. Of note, pt asked if she could have her pre-treatment labs done in [place] on 04/16/2023. RN sent lab orders with pt along with our fax number to fax results. If this is possible and labs are done on 04/16, we can cancel pt's pre-MD lab appt on 04/20/2023. Madyson verbalized understanding and will call [facility] on 04/16 with the update on the labs.
[2023-04-20] MEDS: DURVALUMAB 1,500 MG, TUBING PRIMARY 1 EACH, In-line 0.2 micron filter set 1 EACH in 0.9... 280 MG IVPB (09:28)
[2023-04-22 03:01] LABS: Cortisol, Serum 18.9 ug/dL
[2023-04-22 10:39] LABS: Cholesterol* 209 mg/dL (90-199)
[2023-04-22 10:40] LABS: HDL Cholesterol* 42 mg/dL (>=50); LDL Cholesterol Calculated 127 mg/dL (<100); Triglycerides* 201 mg/dL (40-149)
[2023-05-17 08:35] LABS: Albumin* 4.3 g/dL (3.3-5.0); Chloride* 97 mmol/L (96-114); Potassium* 3.4 mmol/L (3.6-5.1); Sodium* 136 mmol/L (135-149)
[2023-05-17 08:37] LABS: Creatinine* 0.8 mg/dL (0.5-1.5); Estimated Glomerular Filt Rate 75 ml/min
[2023-05-17 08:38] LABS: Alanine Aminotransferase* 24 U/L (4-35); Alkaline Phosphatase* 58 U/L (40-150); Anion Gap 10 mEq/L (7-15); Aspartate Amino Transferase* 42 U/L (12-35); Bilirubin Total* 0.4 mg/dL (0.1-1.5); Blood Urea Nitrogen* 18 mg/dL (7-30); Calcium* 9.7 mg/dL (8.4-10.6); Carbon Dioxide* 29 mmol/L (20-32); Glucose* 135 mg/dL (60-115)
[2023-05-17 11:27] LABS: Basophils Absolute Auto 0.06 K/uL (0.00-0.30); Basophils Percent Auto 0.9 % (0.0-3.0); Eosinophils Percent Auto 10.1 % (0.0-7.0); Hematocrit 41.9 % (33.0-51.0); Hemoglobin* 13.6 gm/dL (12.0-16.0); Immature Granulocytes Abs Auto 0.02 K/uL (0.00-0.30); Immature Granulocytes Pct Auto 0.3 %; Lymphocytes Absolute Auto 1.37 K/uL (0.90-2.90); Lymphocytes Percent Auto 20.7 % (20-44); Mean Corpuscular HGB Conc 33 gm/dL (32-36); Mean Corpuscular Hemoglobin 31 pg (26-34); Mean Corpuscular Volume 96 fL (80-100); Neutrophils Absolute Auto 4.03 K/uL (1.7-7.0); Platelet Count* 284 K/uL (140-440); RDW Coefficient of Variation % 14.1 % (11.5-15.5); Red Blood Count 4.36 m/uL (4.00-5.20); White Blood Count* 6.61 K/uL (4.50-11.00)
[2023-05-17 11:33] LABS: Slide Review Reflex No
[2023-05-18 08:00] VITALS: BP 124/73; PULSE 73; RESP 16; TEMP 36.3; O2SAT 95
[2023-05-18] MEDS: DURVALUMAB 1,500 MG, TUBING PRIMARY 1 EACH, In-line 0.2 micron filter set 1 EACH in 0.9... 280 MG IVPB (08:53)
[2023-05-18] MEDS: 0.9 % SODIUM CHLORIDE 250 ml IV (10:34)
[2023-05-18] MEDS: SODIUM CHLORIDE 0.9 % (FLUSH) 10 ML SYRINGE IVF (10:34)
--- NOTE | 2023-05-18 10:52 | ONC.NURNOTE ---
no med changes. except recently saw Dr. Grajeda and diagnosed with a pinched nerve rt hip. on a new med with relief. will bring med in at next visit or call in with the info. occ numbness down rt leg.
[2023-05-18 22:38] LABS: Cortisol, Serum 14.8 ug/dL
[2023-05-21 11:17] LABS: Alpha Fetoprotein Tumor Marker 4 ng/mL (0-9)
[2023-06-16 10:18] LABS: Basophils Absolute Auto 0.08 K/uL (0.00-0.30); Eosinophils Absolute Auto 0.28 K/uL (0.00-0.50); Eosinophils Percent Auto 3.6 % (0.0-7.0); Hematocrit 41.2 % (33.0-51.0); Hemoglobin* 13.1 gm/dL (12.0-16.0); Immature Granulocytes Abs Auto 0.04 K/uL (0.00-0.30); Immature Granulocytes Pct Auto 0.5 %; Lymphocytes Percent Auto 18.2 % (20-44); Mean Corpuscular HGB Conc 32 gm/dL (32-36); Mean Corpuscular Hemoglobin 31 pg (26-34); Mean Corpuscular Volume 98 fL (80-100); Monocytes Percent Auto 8.4 % (0.0-11.0); Neutrophils Percent Auto 68.3 % (42.0-72.0); Platelet Count* 314 K/uL (140-440); RDW Coefficient of Variation % 13.9 % (11.5-15.5); Red Blood Count 4.22 m/uL (4.00-5.20); White Blood Count* 7.76 K/uL (4.50-11.00)
[2023-06-16 10:24] LABS: Slide Review Reflex No
[2023-06-16 10:43] LABS: Albumin* 4.3 g/dL (3.3-5.0); Chloride* 96 mmol/L (96-114); Potassium* 3.3 mmol/L (3.6-5.1); Sodium* 138 mmol/L (135-149)
[2023-06-16 10:46] LABS: Alanine Aminotransferase* 18 U/L (4-35); Alkaline Phosphatase* 60 U/L (40-150); Anion Gap 13 mEq/L (7-15); Aspartate Amino Transferase* 34 U/L (12-35); Bilirubin Total* 0.6 mg/dL (0.1-1.5); Blood Urea Nitrogen* 18 mg/dL (7-30); Carbon Dioxide* 29 mmol/L (20-32); Creatinine* 0.8 mg/dL (0.5-1.5); Estimated Glomerular Filt Rate 75 ml/min; Glucose* 91 mg/dL (60-115)
[2023-06-16 10:47] LABS: Calcium* 9.4 mg/dL (8.4-10.6)
[2023-06-17 08:57] VITALS: BP 119/62; PULSE 70; RESP 16; TEMP 36.8; O2SAT 94
[2023-06-17] MEDS: SODIUM CHLORIDE 0.9 % (FLUSH) 10 ML SYRINGE IVF (09:40)
[2023-06-17] MEDS: 0.9 % SODIUM CHLORIDE 250 ml IV (09:40)
[2023-06-17] MEDS: DURVALUMAB 1,500 MG, TUBING PRIMARY 1 EACH, In-line 0.2 micron filter set 1 EACH in 0.9... 280 MG IVPB (09:57)
[2023-06-18 00:53] LABS: Cortisol, Serum 11.1 ug/dL
== END 2023-06-19 23:59 | disposition home or self-care (01) ==
LOC: CCIC 08:30
PROVIDERS: Clinical Nurse Specialist; Internal Medicine; PCP Physician Assistant; Referring Provider Physician Assistant; Visit Provider Internal Medicine Hematology & Oncology
DX: C22.9 Malignant neoplasm of liver, not specified as primary or secondary (principal); M85.89 Other specified disorders of bone density and structure, multiple sites
CPT/HCPCS: 36415; 80053; 80061; 82105; 82533; 84443; 85025; 96413; 99212; 99214; 99215; J7050; J9173

== ENCOUNTER 2023-07-01 12:46 | Outpatient (CLI) | payer MEDICARE, SELFPAY ==
--- NOTE | 2023-07-01 13:00 | CRLHL7_ITS ---
For Patients: As a result of the Century Cures Act, medical imaging exams and procedure reports are released immediately into your electronic medical record. You may view this report before your referring provider. If you have questions, please contact your health care provider. BILATERAL SCREENING MAMMOGRAM WITH COMPUTER-AIDED DETECTION AND TOMOSYNTHESIS TECHNIQUE: CC and MLO views were obtained. These mammographic images have been obtained using full-field digital technique. These mammographic images were interpreted with the benefit of computer-aided detection. Breast tomosynthesis was used in this interpretation. COMPARISON FILM: 05/06/21, 03/03/19, 02/08/18. FINDINGS: The breasts are heterogeneously dense, which may obscure small masses. IMPRESSION: There is no radiographic evidence for malignancy. ASSESSMENT: BI-RADS Category 1: Negative RECOMMENDATION: Routine screening mammogram in 1 year. A lay language report of this examination will be provided to the patient. ALEXANDER ESPINOZA M.D. Diagnostic Radiologist [email or web address] LISA/zoie Transcribed: 07/02/2023, 2:[address]/Dictated by: Alexander Espinoza MD @ 07/02/2023 9:37:00 AM (Electronically Signed)
--- NOTE | 2023-07-01 13:30 | CRLHL7_ITS ---
For Patients: As a result of the Century Cures Act, medical imaging exams and procedure reports are released immediately into your electronic medical record. You may view this report before your referring provider. If you have questions, please contact your health care provider. DXA BONE MINERAL DENSITY STUDY Current height (in): 63.0. Weight (lb): 160.0. Menopause age: 49. Ethnicity: White. 1. Have you had a previous hip or vertebral fracture? No. 2. Have you had any fractures during your adult life which did not result from significant trauma (e.g., auto accident)? No. 3. Did either of your parents have a hip fracture? No. 4. Do you smoke? Yes. 5. Have you ever taken Glucocorticoids? No. 6. Do you have rheumatoid arthritis? No. 7. Do you have secondary osteoporosis? No. 8. Do you drink 3 or more alcoholic drinks per day? No. 9. Are you being treated for osteoporosis? No. 10. Have you ever taken any of the following medications: Actonel, Evista, Fosamax, Miacalcin, Reclast, Boniva, Forteo, HRT (i.e. estrogen/hormone therapy), Protelos, Prolia, Vitamin D, Calcium, other ??? please specify. ANSWER: Yes, Vitamin D and Calcium. 11. Do you have any of the following medical conditions: Anorexia or bulimia, asthma or emphysema, end stage renal disease, hyperparathyroidism, any seizure disorders, cancer, inflammatory bowel diseases, hysterectomy, other ??? please specify. ANSWER: Yes, Cancer, Hysterectomy. 12. What was your maximum height (inches)? 66. 13. Do you perform weight bearing exercise regularly? Yes. 14. Do you regularly consume dairy products? No. 15. Do you drink caffeinated beverages? No. If female: 16. At what age did your period start? 11. 17. Are you premenopausal? No. 18. How many full term pregnancies have you had? 3. 19. Have you ever missed your period for more than 6 months in a row (not including or menopause)? No. TECHNIQUE: Bone mineral density study was performed using the [employer]. FINDINGS: The results of the study expressed as bone mineral density (BMD) are as follows: Lumbar spine L1 to L3: BMD: 1.192 g/cm2. T-score: 1.6. Z-score: 4.2. Neck Left: BMD: 0.840 g/cm2. T-score: -0.1 . Z-score: 2.2. Right: BMD: 0.747 g/cm2. T-score: -0.9 . Z-score: 1.4. Total Left: BMD: 0.948 g/cm2. T-score: 0.1 . Z-score: 2.1. Right: BMD: 0.937 g/cm2. T-score: -0.0 . Z-score: 2.0. IMPRESSION: Normal bone density. Alexander Cuenca M.D. Diagnostic Radiologist [email or web address] DSM/brenda JR/Dictated by: Alexander Cuenca MD @ 07/02/2023 8:27:00 AM (Electronically Signed)
== END 2023-07-01 12:47 | disposition home or self-care (01) ==
LOC: MAMMO 12:47
PROVIDERS: PCP Internal Medicine; Visit Provider Internal Medicine
DX: Z12.31 Encounter for screening mammogram for malignant neoplasm of breast (principal); R92.2 Inconclusive mammogram; M85.89 Other specified disorders of bone density and structure, multiple sites
CPT/HCPCS: 77063; 77067; 77080

== ENCOUNTER 2023-07-06 09:00 | Outpatient (RCR) | payer MEDICARE, SELFPAY ==
--- NOTE | 2023-05-25 12:42 | PT.OPEX ---
PT [place] Outpatient Eval PT [facility] Outpatient Eval Start: 05/24/23 13:16 Freq: Status: Active Protocol: Document 05/25/23 07:10 MLS (Rec: 05/25/23 12:39 MLS [id number]) E-signed By Ana Betancourt DPT Physical Therapy Outpatient Evaluation Insurance Information Recert Due Date 08/22/23 Insurance Name Medicare B,are Medical Diagnosis M51.36 DDD M25.551 Right hip pain M54.16 lumbar radiculopathy Referring MD Tristan Grajeda MD Subjective Subjective Patient is a 78 year old female who presents to physical therapy with signs and symptoms consistent with pain in her right hip that started 3 months ago. She states that she has arthritis and a pinched nerve in her right hip and low back. She states that she was getting tingling and sharp pain radiating down her right leg to knee at times. She has been doing stretching to get pressure off that right side and that has really helped. She currently has a dull ache in her right low back and glut and is pretty constant. She states that mowing the lawn, sitting, playing cards, and sometimes walking will irritate it. She states that she is active and uses the pool twice a week, rides the stationary bike, walks, and [facility] She also likes to [employer] and [employer]. Significant past medical history includes bilateral TKA 5-6 years ago, high blood pressure controlled , and liver and lung cancer treated with immune therapy monthly. She gets fatigue and fogginess for about a week after treatment. She lives in a home with a full flight of stairs. She states that she doesn't sleep well at night but its not because of pain. Patient would like to achieve less pain and prevention of future episodes through physical therapy sessions. Pain Comments Today: 1/10 on a 0-10 pain scale with 10 = extreme pain At its worst: 9/10 At its best: 0/10 Current Work Status Retired Preferred Name Madyson Chávez Weight Bearing Status Full Weight Bearing Objective Other/Pertinent Objective Posture Assessment: No kyphosis or increased lordosis noted LUMBAR ROM Flexion: 75% repeated flexion: does not increase pain Extension: 100% repeated ext : does not increase pain Right Sidebend:75% Left Sidebend: 75% Right Rotation: 75% Left Rotation:75% LE MMT Hip flexion: R 5/5 L 5/5 Hip Extension: R 5/5 L 5/5 Hip abduction: R 5/5 L 5/5 Knee extension: R 5/5 L 5/5 Knee Flexion: R 5/5 L 5/5 Dorsiflexion/heel walk: R 5/5 L 5/5 Plantarflexion/toe walk:R 5/5 L 5/5 Great Toe Extension: R 5/5 L 5 /5 JOINT MOBILITY/PALPATION Tenderness to palpation of right piriformis and QL SPECIAL TESTS -Quadrant test: Positive on right -Single leg stance: 5 seconds each, no increase in symptoms -Slump test: positive on right -Straight leg raise: positive on right SI/HIP -MALCOM: supine negative -FADIR supine negative TX: Access Code: [email or web address] URL: [email or web address] Date: 05/25/2023 Prepared by: Ana Betancourt Exercises - Standing Lumbar Extension - 1 x daily - 7 x weekly - 3 sets - 10 reps - Supine Transversus Abdominis Bracing - Hands on Ground - 1 x daily - 7 x weekly - 3 sets - 10 reps - 3 hold - Supine Bridge - 1 x daily - 7 x weekly - 3 sets - 10 reps Functional Test Performed & Score 36/50 Modified Oswestry Low Back Pain Questionnaire Assessment Assessment/Impression Pt is a 78 year old female who presents with concerns of right low back and hip pain with radiculopathy. Patient also has notable objective findings including limited ROM , impaired balance, and decreased strength likely contributing to the problem. Patient is a good candidate for skilled therapy to target deficits described above. Skilled PT intervention is necessary for use of therapeutic exercise manual therapy, neuromuscular re- education, gait training, and therapeutic activity. Functional impairments include difficulty with mowing the lawn, sitting, moving from sit to stand and some of her household duties. See appropriate sections of PT eval for complete list of goals and POC. D/C plan and criteria is for pt to achieve the goals as listed below or until max rehab potential is met. Pt was agreeable with plan of care and goals established. Primary Functional Limitations Sitting moving from sit to stand Initiation of walking Plan of Care Rehabilitation Potential Good Physical Therapy Goals ST. Pt will demonstrate consistent HEP compliance to ensure progress in reaching established goals during course of care. 2. Patient will report pain levels <2/10 with all activities in order to improve functional mobility at home, work and during functional leisure activities. 3. Pt will demonstrate independence in performance of home exercise program with the use of video and/or handouts in order to optimize functional mobility and reduce risk for re-injury. LT. Pt will be able to ascend/ descend 1 flight of stairs in order to perform ADLs pain free. 5. Patient will be able to sit and play cards for up to one hour without pain. 6. Patient will be able to bend and lift household items from the floor to shoulder height to perform ADLs without pain. 7. Patient will be able to walk up to 45 minutes without pain. Coordination/Communication With Referral Source Treatment Plan/Direct Interventions Gait Training,Manual Therapy, Neuromuscular Re-ed, Therapeutic Activities, Therapeutic Exercises Patient Will Be Discharged From Therapy Independently Progressing Evaluation Billing Untimed Code Treatment Minutes 30 Complexity Low Certification Information Physician Comment/Change : Physician NPI Number #
== END 2023-09-13 15:12 | disposition home or self-care (01) ==
PROVIDERS: PCP Physician Assistant; Visit Provider Family Medicine
DX: M51.36 Other intervertebral disc degeneration, lumbar region (principal); M25.551 Pain in right hip; Z51.89 Encounter for other specified aftercare; M54.16 Radiculopathy, lumbar region
CPT/HCPCS: 97110; 97140; 97161

== ENCOUNTER 2023-07-21 08:19 | Outpatient (CLI) | payer MEDICARE, SELFPAY ==
--- NOTE | 2023-07-21 09:00 | CRLHL7_ITS ---
For Patients: As a result of the Century Cures Act, medical imaging exams and procedure reports are released immediately into your electronic medical record. You may view this report before your referring provider. If you have questions, please contact your health care provider. Indication: Malignant neoplasm of liver Technique: CT Chest/Abd/Pelvis W/ 81CC [id number] Please note that all CT scans at this facility use dose modulation, iterative reconstruction, and/or weight-based dosing when appropriate to reduce radiation dose to as low as reasonably achievable. Comparison: 09/17/2022, 07/10/2022, 06/17/2022, 05/19/2022, 02/27/2022, 02/17/2022 Findings: In the chest, resolution of previously noted nodule within the right lower lobe. Near complete resolution of right upper lung nodule, measuring 2.4 millimeters, series 3, image 19. Slightly decreased size of multiple anterior right lung. Also decreased size of nodules within the left anterior lung measuring up to 9.7 millimeters, previously measuring 12 millimeters. Chronic patchy ground-glass densities in the upper lungs. No pleural effusion. No pulmonary edema. Left lower lobe atelectasis. No thyroid mass. Atherosclerotic changes. No adenopathy. There is no fracture. In the abdomen, there is a circumscribed low-density lesion right hepatic lobe measuring 3.3 x 3.6 cm. Previously, this demonstrated slight restricted diffusion on the MRI. Postop changes partial liver resection again noted. The spleen is normal. Adrenal glands are unremarkable. Stable simple cyst left kidney. Small cyst right kidney. No hydronephrosis. Pancreas normal. Atherosclerotic changes. Patency of the main portal vein. Decreased size/conspicuity of multiple peritoneal implants compared to 05/19/2022. Postop changes to the anterior abdominal wall with weakening of the abdominal wall fascia. The several subcentimeter mesenteric lymph nodes are present. There is no bowel obstruction. In the pelvis, the bladder is normal. Sigmoid diverticulosis. No diverticulitis. Appendix normal. No pelvic or inguinal adenopathy. Degenerative facet arthropathy lumbar spine with grade 1 degenerative spondylolisthesis of L3 on L4 and L4 on L5. No fracture. Impression: Decreased size/conspicuity bilateral pulmonary nodules since the prior exam. Decreased size/conspicuity of multiple peritoneal nodular implants. Increased size of hypodense mass within segment 7 of the liver measuring 3.6 cm, previously measuring 2.5 cm. Please note that all CT scans at this facility use dose modulation, iterative reconstruction, and/or weight-based dosing when appropriate to reduce radiation dose to as low as reasonably achievable. Dictated by Alexander Cuenca MD @ 07/21/2023 10:28:23 AM (Electronically Signed)
== END 2023-07-21 08:20 | disposition home or self-care (01) ==
LOC: CT 08:19
PROVIDERS: PCP Internal Medicine; Visit Provider Internal Medicine Hematology & Oncology
DX: C22.9 Malignant neoplasm of liver, not specified as primary or secondary (principal)
CPT/HCPCS: 71260; 74177; Q9967

== ENCOUNTER 2023-10-09 09:38 | Outpatient (CLI) | payer MEDICARE, SELFPAY ==
[2023-10-09 09:54] LABS: Basophils Absolute Auto 0.07 K/uL (0.00-0.30); Eosinophils Absolute Auto 0.28 K/uL (0.00-0.50); Eosinophils Percent Auto 3.9 % (0.0-7.0); Hematocrit 41.6 % (33.0-51.0); Hemoglobin* 13.6 gm/dL (12.0-16.0); Immature Granulocytes Abs Auto 0.01 K/uL (0.00-0.30); Immature Granulocytes Pct Auto 0.1 %; Lymphocytes Absolute Auto 1.69 K/uL (0.90-2.90); Lymphocytes Percent Auto 23.8 % (20-44); Mean Corpuscular HGB Conc 33 gm/dL (32-36); Mean Corpuscular Hemoglobin 31 pg (26-34); Mean Corpuscular Volume 95 fL (80-100); Monocytes Percent Auto 11.4 % (0.0-11.0); Neutrophils Absolute Auto 4.23 K/uL (1.7-7.0); Neutrophils Percent Auto 59.8 % (42.0-72.0); Platelet Count* 299 K/uL (140-440); RDW Coefficient of Variation % 14.2 % (11.5-15.5); Red Blood Count 4.38 m/uL (4.00-5.20); White Blood Count* 7.09 K/uL (4.50-11.00)
[2023-10-09 09:59] LABS: Slide Review Reflex No
[2023-10-09 10:06] LABS: Albumin* 4.6 g/dL (3.3-5.0); Chloride* 98 mmol/L (96-114); Potassium* 3.4 mmol/L (3.6-5.1); Sodium* 136 mmol/L (135-149)
[2023-10-09 10:08] LABS: Creatinine* 0.8 mg/dL (0.5-1.5); Estimated Glomerular Filt Rate 75 ml/min
[2023-10-09 10:09] LABS: Alanine Aminotransferase* 17 U/L (4-35); Alkaline Phosphatase* 63 U/L (40-150); Anion Gap 10 mEq/L (7-15); Aspartate Amino Transferase* 25 U/L (12-35); Bilirubin Total* 0.6 mg/dL (0.1-1.5); Blood Urea Nitrogen* 21 mg/dL (7-30); Calcium* 9.6 mg/dL (8.4-10.6); Carbon Dioxide* 28 mmol/L (20-32); Glucose* 95 mg/dL (60-115); Total Protein* 8.5 g/dL (6.0-8.3)
== END 2023-10-09 09:39 | disposition home or self-care (01) ==
PROVIDERS: PCP Physician Assistant; Visit Provider Internal Medicine
DX: E78.2 Mixed hyperlipidemia (principal); I10 Essential (primary) hypertension; Z79.899 Other long term (current) drug therapy
CPT/HCPCS: 36415; 80053; 84443; 85025

== ENCOUNTER 2023-11-01 08:12 | Outpatient (CLI) | payer MEDICARE, SELFPAY ==
--- NOTE | 2023-11-01 09:00 | CT_ITS ---
Patient: LENI GAN Facility:?[facility] RIS Patient ID:?[id number] Site Patient ID:?[id number]. Site :?[id number] Study:?CT-Chest/Abd/Pelvis w/ 81cc [id number]/18/2024 9:53:46 AM Ordering Physician:Nuvia Sims Final Report: Indication: Liver, lung cancer. Malignancy Technique: CT Chest/Abd/Pelvis w/ 81cc [id number] Please note that all CT scans at this facility use dose modulation, iterative reconstruction, and/or weight-based dosing when appropriate to reduce radiation dose to as low as reasonably achievable. Comparison: 07/21/2023 Findings: In the chest, stable nodular densities within the anterior lungs bilaterally. Stable ground-glass density within the left upper lobe and within the right upper lung. No pleural effusion. No pulmonary edema. Chronic atelectasis left lower lobe at the medial aspect. No enlarged lymph nodes. Vascular calcifications. No vertebral body compression fracture. Degenerative changes. In the abdomen, stable postop changes of partial hepatic resection. Stable low- density lesion within the right hepatic lobe measuring 3.6 cm. The gallbladder is absent. Pancreatic parenchyma is normal. Normal spleen. The adrenal glands are normal. No solid renal mass or stone. Simple cysts are present within the kidneys. No hydronephrosis. Vascular calcifications. Rectus diastasis is similar with fat density extending to the umbilicus. Right paracentral fat filled hernia is unchanged. Subtle densities within the omental fat are similar. In the pelvis, the bladder is incompletely distended. Sigmoid diverticulosis. No diverticulitis. The appendix is within normal limits. No adenopathy. Degenerative facet arthropathy lower lumbar spine with degenerative anterolisthesis of L3 on L4 and L4 on 5. No fracture. Impression: Stable bilateral pulmonary nodules. Stable hepatic lesion. Similar subtle densities within the peritoneal fat. Please note that all CT scans at this facility use dose modulation, iterative reconstruction, and/or weight-based dosing when appropriate to reduce radiation dose to as low as reasonably achievable. Dictated by Alexander Cuenca MD @ 11/01/2023 12:12:56 PM Signed by:?Alexander Cuenca MD @11/01/2023 12:12:56 PM (Electronic Signature)
== END 2023-11-01 08:13 | disposition home or self-care (01) ==
LOC: CT 08:15
PROVIDERS: PCP Internal Medicine; Visit Provider Internal Medicine Hematology & Oncology
DX: C22.9 Malignant neoplasm of liver, not specified as primary or secondary (principal); R91.8 Other nonspecific abnormal finding of lung field; K76.9 Liver disease, unspecified; Z85.118 Personal history of other malignant neoplasm of bronchus and lung
CPT/HCPCS: 71260; 74177; Q9967

== ENCOUNTER 2024-01-04 09:30 | Outpatient (RCR) | payer MEDICARE, SELFPAY ==
[2023-07-12 09:06] LABS: Basophils Absolute Auto 0.08 K/uL (0.00-0.30); Basophils Percent Auto 1.1 % (0.0-3.0); Eosinophils Absolute Auto 0.33 K/uL (0.00-0.50); Eosinophils Percent Auto 4.6 % (0.0-7.0); Hematocrit 42.2 % (33.0-51.0); Hemoglobin* 13.5 gm/dL (12.0-16.0); Immature Granulocytes Abs Auto 0.02 K/uL (0.00-0.30); Immature Granulocytes Pct Auto 0.3 %; Lymphocytes Absolute Auto 1.47 K/uL (0.90-2.90); Lymphocytes Percent Auto 20.3 % (20-44); Mean Corpuscular HGB Conc 32 gm/dL (32-36); Mean Corpuscular Hemoglobin 31 pg (26-34); Mean Corpuscular Volume 98 fL (80-100); Monocytes Percent Auto 8.6 % (0.0-11.0); Neutrophils Absolute Auto 4.71 K/uL (1.7-7.0); Neutrophils Percent Auto 65.1 % (42.0-72.0); Platelet Count* 299 K/uL (140-440); RDW Coefficient of Variation % 13.6 % (11.5-15.5); Red Blood Count 4.33 m/uL (4.00-5.20); White Blood Count* 7.23 K/uL (4.50-11.00)
[2023-07-12 09:10] LABS: Slide Review Reflex No
[2023-07-12 09:21] LABS: Albumin* 4.5 g/dL (3.3-5.0); Chloride* 98 mmol/L (96-114)
[2023-07-12 09:22] LABS: Potassium* 3.7 mmol/L (3.6-5.1); Sodium* 137 mmol/L (135-149)
[2023-07-12 09:24] LABS: Anion Gap 10 mEq/L (7-15); Aspartate Amino Transferase* 29 U/L (12-35); Bilirubin Total* 0.3 mg/dL (0.1-1.5); Carbon Dioxide* 29 mmol/L (20-32); Creatinine* 0.8 mg/dL (0.5-1.5); Estimated Glomerular Filt Rate 75 ml/min; Total Protein* 8.1 g/dL (6.0-8.3)
[2023-07-12 09:25] LABS: Alanine Aminotransferase* 20 U/L (4-35); Alkaline Phosphatase* 64 U/L (40-150); Blood Urea Nitrogen* 17 mg/dL (7-30); Calcium* 9.4 mg/dL (8.4-10.6); Glucose* 112 mg/dL (60-115)
--- NOTE | 2023-07-12 13:28 | URNOTE ---
Imfinzi ([id number]) has been approved 1500mg every 28 days for 14 cycles. 07/15/2023-07/15/2024. Auth #[id number]
[2023-07-14 01:40] LABS: Cortisol, Serum 10.6 ug/dL
[2023-07-16 08:32] VITALS: BP 117/67; PULSE 73; RESP 16; O2SAT 98
[2023-07-16] MEDS: 0.9 % SODIUM CHLORIDE 250 ml IV (09:00)
[2023-07-16] MEDS: SODIUM CHLORIDE 0.9 % (FLUSH) 10 ML SYRINGE IVF (09:00)
[2023-07-16] MEDS: DURVALUMAB 1,500 MG, TUBING PRIMARY 1 EACH, In-line 0.2 micron filter set 1 EACH in 0.9... 280 MG IVPB (09:22)
--- NOTE | 2023-07-16 11:33 | PC.NURSE ---
Pt present at [facility] today for imfinzi infusion. Madyson shares that she hurt her RIGHT wrist while doing yoga. She had a little pain last night but during the night she woke with 10/10 pain. As her time in [facility] progressed, pt c/o worsening pain and swelling. Of note, Madyson took Tylenol middle of night/early AM. RN called PCP to request an x-ray. They called back and will reach out to Madyson directly as she is now gone from [facility].
[2023-07-28 16:51] LABS: Alpha Fetoprotein Tumor Marker 5 ng/mL (0-9)
[2023-08-12 09:20] LABS: Basophils Percent Auto 0.3 % (0.0-3.0); Eosinophils Percent Auto 5.8 % (0.0-7.0); Hematocrit 44.1 % (33.0-51.0); Hemoglobin* 14.3 gm/dL (12.0-16.0); Immature Granulocytes Pct Auto 0.4 %; Lymphocytes Percent Auto 10.1 % (20-44); Mean Corpuscular HGB Conc 32 gm/dL (32-36); Mean Corpuscular Hemoglobin 31 pg (26-34); Mean Corpuscular Volume 96 fL (80-100); Monocytes Percent Auto 5.1 % (0.0-11.0); Neutrophils Percent Auto 78.3 % (42.0-72.0); Platelet Count* 322 K/uL (140-440); RDW Coefficient of Variation % 13.8 % (11.5-15.5); Red Blood Count 4.59 m/uL (4.00-5.20)
[2023-08-12 09:32] LABS: Slide Review Reflex No
[2023-08-12 09:35] LABS: Albumin* 4.9 g/dL (3.3-5.0); Chloride* 97 mmol/L (96-114); Potassium* 3.9 mmol/L (3.6-5.1); Sodium* 135 mmol/L (135-149)
[2023-08-12 09:38] LABS: Alanine Aminotransferase* 23 U/L (4-35); Alkaline Phosphatase* 64 U/L (40-150); Anion Gap 9 mEq/L (7-15); Aspartate Amino Transferase* 29 U/L (12-35); Bilirubin Total* 0.6 mg/dL (0.1-1.5); Blood Urea Nitrogen* 21 mg/dL (7-30); Carbon Dioxide* 29 mmol/L (20-32); Creatinine* 0.7 mg/dL (0.5-1.5); Estimated Glomerular Filt Rate 88 ml/min; Glucose* 106 mg/dL (60-115); Total Protein* 8.6 g/dL (6.0-8.3)
[2023-08-12 09:39] LABS: Calcium* 9.8 mg/dL (8.4-10.6)
[2023-08-13 09:09] VITALS: BP 116/67; PULSE 86; RESP 16; TEMP 36; O2SAT 96
[2023-08-13 10:16] LABS: PCR FLU A Negative PCR FLU A (Negative); PCR FLU B Negative PCR FLU B (Negative); PCR RSV Negative PCR RSV (Negative)
[2023-08-13 10:30] LABS: SARS PCR* Negative SARS-CoV-2 (Negative)
[2023-08-13] MEDS: DURVALUMAB 1,500 MG, TUBING PRIMARY 1 EACH, In-line 0.2 micron filter set 1 EACH in 0.9... 280 MG IVPB (11:10)
--- NOTE | 2023-08-13 15:14 | ONC.NURNOTE ---
Pt here for imfinzi. WBC elevated. Pt states many family members are ill with diarrhea, vomiting, and fatigue. Pt states she woke up congested this am. Discussed with Ita Suero APRN pt symptoms, order received to test pt for covid/flu/rsv. Results came back negative. Pt treated with imfinzi.
[2023-09-08 13:41] LABS: Basophils Absolute Auto 0.09 K/uL (0.00-0.30); Basophils Percent Auto 1.2 % (0.0-3.0); Eosinophils Absolute Auto 0.37 K/uL (0.00-0.50); Eosinophils Percent Auto 5.1 % (0.0-7.0); Hematocrit 39.7 % (33.0-51.0); Hemoglobin* 12.9 gm/dL (12.0-16.0); Immature Granulocytes Abs Auto 0.02 K/uL (0.00-0.30); Immature Granulocytes Pct Auto 0.3 %; Lymphocytes Absolute Auto 1.96 K/uL (0.90-2.90); Lymphocytes Percent Auto 26.9 % (20-44); Mean Corpuscular HGB Conc 33 gm/dL (32-36); Mean Corpuscular Hemoglobin 31 pg (26-34); Mean Corpuscular Volume 96 fL (80-100); Monocytes Percent Auto 10.2 % (0.0-11.0); Neutrophils Percent Auto 56.3 % (42.0-72.0); Platelet Count* 285 K/uL (140-440); RDW Coefficient of Variation % 13.6 % (11.5-15.5); Red Blood Count 4.15 m/uL (4.00-5.20); White Blood Count* 7.28 K/uL (4.50-11.00)
[2023-09-08 13:53] LABS: Albumin* 4.5 g/dL (3.3-5.0); Chloride* 96 mmol/L (96-114); Potassium* 3.4 mmol/L (3.6-5.1); Sodium* 135 mmol/L (135-149)
[2023-09-08 13:55] LABS: Creatinine* 0.7 mg/dL (0.5-1.5); Estimated Glomerular Filt Rate 88 ml/min
[2023-09-08 13:56] LABS: Alanine Aminotransferase* 17 U/L (4-35); Alkaline Phosphatase* 60 U/L (40-150); Anion Gap 8 mEq/L (7-15); Aspartate Amino Transferase* 25 U/L (12-35); Bilirubin Total* 0.2 mg/dL (0.1-1.5); Blood Urea Nitrogen* 19 mg/dL (7-30); Calcium* 9.4 mg/dL (8.4-10.6); Carbon Dioxide* 31 mmol/L (20-32); Glucose* 106 mg/dL (60-115)
[2023-09-08 14:10] LABS: Slide Review Reflex No
[2023-09-09 22:17] LABS: Cortisol, Serum 5.1 ug/dL
[2023-09-10 08:33] VITALS: BP 116/57; PULSE 76; RESP 16; TEMP 35.9; O2SAT 96
[2023-09-10] MEDS: DURVALUMAB 1,500 MG, TUBING PRIMARY 1 EACH, In-line 0.2 micron filter set 1 EACH in 0.9... 280 MG IVPB (09:08)
--- NOTE | 2023-09-10 09:24 | ONC.NURNOTE ---
Pt here for imfinzi, potassium level 3.4. Pt states she is taking potassium 20meq PO daily, and she may have missed 1 or 2 doses. Also states she is eating potassium rich foods. Pt also states she was seen at [facility] yesterday for UTI, started on Nitrofurantoin BID, has had 2 doses so far and symptoms are improving. Discussed with Ita Suero APRN, order received to have pt take 1 extra tab of 20meq Potassium today and not to miss any future doses. Pt okay to be treated per Ita Suero APRN with recent diagnosis of UTI.
[2023-10-11] MEDS: 0.9 % SODIUM CHLORIDE 250 ml IV (09:07)
[2023-10-11] MEDS: SODIUM CHLORIDE 0.9 % (FLUSH) 10 ML SYRINGE IVF (09:07)
[2023-10-11] MEDS: DURVALUMAB 1,500 MG, TUBING PRIMARY 1 EACH, In-line 0.2 micron filter set 1 EACH in 0.9... 280 MG IVPB (09:10)
[2023-11-01 10:08] LABS: Albumin* 4.3 g/dL (3.3-5.0); Chloride* 95 mmol/L (96-114); Potassium* 3.8 mmol/L (3.6-5.1); Sodium* 132 mmol/L (135-149)
[2023-11-01 10:10] LABS: Bilirubin Total* 0.4 mg/dL (0.1-1.5); Creatinine* 0.8 mg/dL (0.5-1.5); Estimated Glomerular Filt Rate 75 ml/min
[2023-11-01 10:11] LABS: Alanine Aminotransferase* 14 U/L (4-35); Alkaline Phosphatase* 63 U/L (40-150); Anion Gap 6 mEq/L (7-15); Aspartate Amino Transferase* 23 U/L (12-35); Blood Urea Nitrogen* 20 mg/dL (7-30); Calcium* 9.5 mg/dL (8.4-10.6); Carbon Dioxide* 31 mmol/L (20-32); Glucose* 95 mg/dL (60-115); Total Protein* 7.8 g/dL (6.0-8.3)
[2023-11-01 11:42] LABS: Thyroid Stimulating Hormone* 0.066 uIU/mL (0.270-4.20)
[2023-11-01 13:00] LABS: Basophils Absolute Auto 0.08 K/uL (0.00-0.30); Basophils Percent Auto 1.2 % (0.0-3.0); Eosinophils Absolute Auto 0.48 K/uL (0.00-0.50); Eosinophils Percent Auto 6.9 % (0.0-7.0); Hematocrit 39.7 % (33.0-51.0); Hemoglobin* 12.8 gm/dL (12.0-16.0); Immature Granulocytes Abs Auto 0.02 K/uL (0.00-0.30); Immature Granulocytes Pct Auto 0.3 %; Lymphocytes Absolute Auto 1.62 K/uL (0.90-2.90); Lymphocytes Percent Auto 23.4 % (20-44); Mean Corpuscular HGB Conc 32 gm/dL (32-36); Mean Corpuscular Hemoglobin 31 pg (26-34); Mean Corpuscular Volume 97 fL (80-100); Monocytes Percent Auto 13.3 % (0.0-11.0); Neutrophils Absolute Auto 3.79 K/uL (1.7-7.0); Neutrophils Percent Auto 54.9 % (42.0-72.0); Platelet Count* 289 K/uL (140-440); Red Blood Count 4.11 m/uL (4.00-5.20); White Blood Count* 6.91 K/uL (4.50-11.00)
[2023-11-01 13:03] LABS: Slide Review Reflex No
[2023-11-02 18:38] LABS: Alpha Fetoprotein Tumor Marker 3 ng/mL (0-9)
[2023-11-04 16:33] LABS: Free T4 Free Thyroxine* 1.17 ng/dL (0.70-1.85)
[2023-11-06 16:25] LABS: Total T3 105 ng/dL (80-200)
[2023-11-08] MEDS: DURVALUMAB 1,500 MG, TUBING PRIMARY 1 EACH, In-line 0.2 micron filter set 1 EACH in 0.9... 280 MG IVPB (09:25)
[2023-11-08] MEDS: SODIUM CHLORIDE 0.9 % (FLUSH) 10 ML SYRINGE IVF (09:27)
[2023-11-08] MEDS: 0.9 % SODIUM CHLORIDE 250 ml IV (09:27)
[2023-12-06 08:54] LABS: Basophils Absolute Auto 0.09 K/uL (0.00-0.30); Basophils Percent Auto 1.6 % (0.0-3.0); Eosinophils Absolute Auto 0.39 K/uL (0.00-0.50); Eosinophils Percent Auto 6.8 % (0.0-7.0); Hematocrit 42.1 % (33.0-51.0); Hemoglobin* 13.6 gm/dL (12.0-16.0); Immature Granulocytes Abs Auto 0.01 K/uL (0.00-0.30); Immature Granulocytes Pct Auto 0.2 %; Lymphocytes Absolute Auto 1.47 K/uL (0.90-2.90); Lymphocytes Percent Auto 25.6 % (20-44); Mean Corpuscular HGB Conc 32 gm/dL (32-36); Mean Corpuscular Hemoglobin 31 pg (26-34); Mean Corpuscular Volume 96 fL (80-100); Monocytes Percent Auto 10.1 % (0.0-11.0); Neutrophils Absolute Auto 3.21 K/uL (1.7-7.0); Neutrophils Percent Auto 55.7 % (42.0-72.0); Platelet Count* 293 K/uL (140-440); RDW Coefficient of Variation % 13.4 % (11.5-15.5); White Blood Count* 5.75 K/uL (4.50-11.00)
[2023-12-06 08:55] LABS: Slide Review Reflex No
[2023-12-06 09:12] LABS: Albumin* 4.5 g/dL (3.3-5.0); Chloride* 101 mmol/L (96-114); Sodium* 137 mmol/L (135-149)
[2023-12-06 09:13] LABS: Potassium* 3.2 mmol/L (3.6-5.1)
[2023-12-06 09:15] LABS: Alkaline Phosphatase* 64 U/L (40-150); Anion Gap 5 mEq/L (7-15); Aspartate Amino Transferase* 26 U/L (12-35); Bilirubin Total* 0.4 mg/dL (0.1-1.5); Blood Urea Nitrogen* 20 mg/dL (7-30); Carbon Dioxide* 31 mmol/L (20-32); Creatinine* 0.8 mg/dL (0.5-1.5); Estimated Glomerular Filt Rate 75 ml/min; Total Protein* 8.2 g/dL (6.0-8.3)
[2023-12-06 09:16] LABS: Alanine Aminotransferase* 19 U/L (4-35); Calcium* 9.6 mg/dL (8.4-10.6); Glucose* 105 mg/dL (60-115)
--- NOTE | 2023-12-06 10:36 | PC.NURSE ---
Addendum entered by Sarah Quiroz RN 12/06/23 13:23: Discussed case with MD. Called pt with instructions to take an extra dose of Potassium tonight with dinner. Pt will be in tomorrow. Original Note: Pt present at [facility] today for pre-treatment labs. RN reviewed results and noted K 3.2. Reviewed med list and noted Potassium 20 mEq daily on the list. Called Madyson to confirm whether she's taking it or not. Pt stated that she missed the last two days and has been trying to take in a lot of potassium rich foods. RN advised pt to take a dose today. Will review with re: whether or not an extra dose is indicated or not. Will follow-up with pt. She will also be present tomorrow for treatment.
[2023-12-07 08:46] VITALS: BP 133/78; PULSE 73; RESP 16; TEMP 36.7; O2SAT 93
[2023-12-07] MEDS: SODIUM CHLORIDE 0.9 % (FLUSH) 10 ML SYRINGE IVF (09:00)
[2023-12-07] MEDS: DURVALUMAB 1,500 MG, TUBING PRIMARY 1 EACH, In-line 0.2 micron filter set 1 EACH in 0.9... 280 MG IVPB (09:26)
[2023-12-07] MEDS: 0.9 % SODIUM CHLORIDE 250 ml IV (09:26)
[2024-01-03 08:44] LABS: Basophils Absolute Auto 0.07 K/uL (0.00-0.30); Basophils Percent Auto 1.3 % (0.0-3.0); Eosinophils Absolute Auto 0.36 K/uL (0.00-0.50); Eosinophils Percent Auto 6.5 % (0.0-7.0); Hematocrit 41.7 % (33.0-51.0); Hemoglobin* 13.8 gm/dL (12.0-16.0); Immature Granulocytes Abs Auto 0.02 K/uL (0.00-0.30); Immature Granulocytes Pct Auto 0.4 %; Lymphocytes Absolute Auto 1.35 K/uL (0.90-2.90); Lymphocytes Percent Auto 24.4 % (20-44); Mean Corpuscular HGB Conc 33 gm/dL (32-36); Mean Corpuscular Hemoglobin 31 pg (26-34); Mean Corpuscular Volume 94 fL (80-100); Monocytes Percent Auto 10.8 % (0.0-11.0); Neutrophils Absolute Auto 3.13 K/uL (1.7-7.0); Neutrophils Percent Auto 56.6 % (42.0-72.0); Platelet Count* 327 K/uL (140-440); RDW Coefficient of Variation % 13.2 % (11.5-15.5); Red Blood Count 4.42 m/uL (4.00-5.20); White Blood Count* 5.53 K/uL (4.50-11.00)
[2024-01-03 08:48] LABS: Slide Review Reflex No
[2024-01-03 09:05] LABS: Albumin* 4.7 g/dL (3.3-5.0); Chloride* 100 mmol/L (96-114); Potassium* 3.6 mmol/L (3.6-5.1); Sodium* 134 mmol/L (135-149)
[2024-01-03 09:08] LABS: Alanine Aminotransferase* 19 U/L (4-35); Alkaline Phosphatase* 66 U/L (40-150); Anion Gap 7 mEq/L (7-15); Aspartate Amino Transferase* 26 U/L (12-35); Bilirubin Total* 0.6 mg/dL (0.1-1.5); Blood Urea Nitrogen* 17 mg/dL (7-30); Carbon Dioxide* 27 mmol/L (20-32); Creatinine* 0.7 mg/dL (0.5-1.5); Estimated Glomerular Filt Rate 88 ml/min; Glucose* 108 mg/dL (60-115); Total Protein* 8.5 g/dL (6.0-8.3)
[2024-01-03 09:09] LABS: Calcium* 9.2 mg/dL (8.4-10.6)
--- NOTE | 2024-01-03 11:25 | PC.NURSE ---
called pt and LM with good lab results message. pt will see MD and have infusion tomorrow.
[2024-01-04] MEDS: DURVALUMAB 1,500 MG, TUBING PRIMARY 1 EACH, In-line 0.2 micron filter set 1 EACH in 0.9... 280 MG IVPB (09:45)
[2024-01-04] MEDS: SODIUM CHLORIDE 0.9 % (FLUSH) 10 ML SYRINGE IVF (09:45)
[2024-01-04] MEDS: 0.9 % SODIUM CHLORIDE 250 ml IV (09:45)
== END 2024-01-08 23:59 | disposition home or self-care (01) ==
LOC: CCIC 09:30
PROVIDERS: Clinical Nurse Specialist; PCP Physician Assistant; Referring Provider Physician Assistant; Visit Provider Internal Medicine Hematology & Oncology
DX: C22.9 Malignant neoplasm of liver, not specified as primary or secondary (principal); Z51.12 Encounter for antineoplastic immunotherapy; Z85.118 Personal history of other malignant neoplasm of bronchus and lung; E87.1 Hypo-osmolality and hyponatremia
CPT/HCPCS: 36415; 80053; 82105; 82533; 84439; 84443; 84480; 85025; 87631; 96413; 99212; 99214; 99215; G0463; J7050; J9173

== ENCOUNTER 2024-02-08 07:32 | Outpatient (CLI) | payer MEDICARE, SELFPAY ==
--- OUTSIDE RECORDS SUMMARY | 2024-02-08 07:38 | XMS_ITS ---
Author Organization [facility] Address [address] [place] [address] Care Team Providers Care Director Social Name Role Phone Unavailable Unavailable Unavailable Surgery Details Not on file Complications Check Surgery Details section. Procedure Estimated Blood Loss Check Surgery Details section. Procedure Findings Check Surgery Details section. Procedure Specimens Taken Check Surgery Details section.
--- OUTSIDE RECORDS SUMMARY | 2024-02-08 07:38 | XMS_ITS | Referral Summary ---
Author Organization [facility] Address [address] [place] [address] Care Team Providers Care Siebel Architect Name Role Phone Elsewhere, Pcp Primary Care Provider Unavailabl e Source Comments Patient records contain information from all sites at [facility]. For routine questions regarding patient records, call [phone] during business hours, M-F 8:00 AM - 5:00 PM Central Time. Record requests for emergency care only can be directed to [phone] at any time.[facility] Allergies Active Allergy Reactions Criticality Noted Date Comments Erythromycin GI intolerance 11/30/2007 Nickel Other (see comments) 03/16/2023 Oxycodone Rash 11/30/2007 feels really out of it Tolerates Tramadol Sulfa (Sulfonamide Antibiotics) Shortness of breath (Reselect Reaction) 11/30/2007 Tetracycline Diarrhea 11/30/2007 Medications Medication Sig Dispensed Refills Start Date End Date Status multivitamin-minerals- lutein (Multivitamin 50 Plus) tablet Take 1 tablet by mouth daily. Active loratadine (CLARITIN) 10 mg tablet Take 10 mg by mouth at bedtime as needed. Active hydroCHLOROthiazide (HYDRODIURIL) 25 mg tablet 25 mg daily. 09/18/2022 Active famotidine (PEPCID) 20 mg tablet Take 20 mg by mouth. Active estradioL (ESTRACE) 0.1 mg/g (0.01%) vaginal cream 09/27/2022 Active docusate sodium (COLACE) 100 mg capsule Take 100 mg by mouth. 02/28/2021 Active cranberry 400 mg capsule Take 400 mg by mouth. Active cholecalciferol, vitamin D3, 25 mcg (1,000 Unit) tablet Take 1,000 Units by mouth. Active calcium carbonate (TUMS) 500 mg (200 mg calcium) chewable tablet Chew 500 mg 4 (four) times a day as needed. Active azelastine (ASTELIN) 137 mcg/spray (0.1 %) nasal spray Inhale 1 [place] into affected nostril(s) 2 times daily if needed for Rhinitis. 09/20/2022 Active atenoloL (TENORMIN) 50 mg tablet 11/03/2022 Active amLODIPine (NORVASC) 5 mg tablet 11/16/2022 Active acetaminophen (TYLENOL) 325 mg tablet Take 650 mg by mouth every 6 (six) hours as needed. 03/02/2021 Active Lactobacillus acidophilus 1 billion cell capsule Take 1 capsule by mouth 2 (two) times a day. Active potassium chloride (K-TAB) 20 mEq CR tablet 20 mEq daily. 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 on 12/03/2022 Malignant Neoplasm Of Liver Hepatocellular 12/27 Other Specified Disorders Of Bone Density And Structure Multiple Sites 02/06/2018 12/07/2022 Overview: 2008 normal. 01/2018 osteopenia, repeat 3-5 years Cystocele Midline 12/17/2010 12/07/2022 Overview: Uses pessary Acute Vaginitis 04/19/2009 12/07/2022 Social History Tobacco Use Types Packs/Day Years Used Date Smoking Tobacco: Former Cigarettes 0.8 18 0 01/14/1961 - 01/14/1979 Smokeless Tobacco: Never Tobacco Cessation:Counseling Given: Not Answered Alcohol Use Standard Drinks/Week Comments Yes 1 (1 standard drink = 0.6 oz pure alcohol) one drink once or twice a month Humiliation, Afraid, Rape, and Kick questionnair e Answer Date Recorded Within the last year, have y ou been afraid of your partner or ex-partner? No 11/16/2022 Within the last year, have y ou been humiliated or emotionally abused in other ways by your partner or ex-partner? No Within the last year, have y ou been kicked, hit, slapped, or otherwise physically hurt by your partner or ex-partner? No 11/16/2022 Within the last year, have y ou been raped or forced to have any kind of sexual activity by your partner or ex-partner? No 11/16/2022 Social Connection and Isolat ion Panel [NHANES] Answer Date Recorded In a typical week, how many times do you talk on the phone with family, friends, or neighbors? More than three times a week 11/16/2022 How often do you get togethe r with friends or relatives? More than three times a week 11/16/2022 How often do you attend [facility] or muslim services? More than 4 times per year 11/16/2022 Do you belong to any clubs o r organizations such as sabianist groups, unions, fraternal or athletic groups, or school groups? Yes 11/16/2022 How often do you attend meet ings of the clubs or organizations you belong to? More than 4 times per year 11/16/2022 Are you , , di vorced, , never , or living with a partner? 11/16/2022 AUDIT-C Answer Date Recorded Q1: How often do you have a drink containing alc ohol? Monthly or less 11/16/2022 Q2: How many drinks containi ng alcohol do you have on a typical day when you are drinking? 1 or 2 11/16/2022 Q3: How often do you have si x or more drinks on one occasion? Never 11/16/2022 Overall Financial Resource Strain (CARDIA) Answe r Date Recorded How hard is it for you to pa y for the very basics like food, housing, medical care, and heating? Not hard at all 11/16/2022 [facility] - Occupational Stress Questionnaire Answer Date Recorded Do you feel stress - tense, restless, nervous, or anxious, or unable to sleep at night because your mind is troubled all the time - these days? To some extent 11/16/2022 Exercise Vital Sign Answer Date Recorde d On average, how many days pe r week do you engage in moderate to strenuous exercise (like a brisk walk)? 6 days 11/16/2022 On average, how many minutes do you engage in exercise at this level? 20 min 11/16/2022 Hunger Vital Sign Answer Date Recorded Within the past 12 months, y ou worried that your food would run out before you got the money to buy more. Never true 11/17/19 23 Within the past 12 months, t he food you bought just didn't last and you didn't have money to get more. Never true 11/16/2022 PRAPARE - Transportation Answer Date Re corded In the past 12 months, has l ack of transportation kept you from medical appointments or from getting medications? No 10/2022 In the past 12 months, has l ack of transportation kept you from meetings, work, or from getting things needed for daily living? No 11/16/2022 Housing Stability Vital Sign Answer Braulio e Recorded In the last 12 months, was t here a time when you were not able to pay the mortgage or rent on time? No 11/16/2022 In the last 12 months, how many places have you lived? 1 11/16/2022 In the last 12 months, was t here a time when you did not have a steady place to sleep or slept in a long term (including now)? No 11/16/2022 Nutrition Answer Date Recorded Nutrition: EVOO Fat Source Yes 11/16 On average, how many serving s of fruits and vegetables do you eat per day (serving size is equal to 1 cup or approximately the size of a tennis ball)? 6-7 11/16/2022 Dental Answer Date Recorded Dental: Regular Dentist Yes 11/15/19 Employment Answer Date Recorded Employment status Retired 11/16/2022 Education Answer Date Recorded What is the highest level of school you have completed or the highest degree you have received? Associate degree: occupational, technical, or vocational program 11/14/2022 Sex and Gender Information Value Date Recorded Sex Assigned at Female 11/14/2022 3:32 PM CDT Gender Identity Female 11/14/2022 3:32 PM CDT Sexual Orientation Straight 11/14/2022 3: 32 PM CDT Last Filed Vital Signs Vital Sign Reading Time Taken Comments Blood Pressure 146/56 12/14/2022 12:00 PM CDT Pulse 69 12/14/2022 12:00 PM CDT Temperature 36.4 ??C (97.5 ??F) 12/14/2022 12:00 PM C DT Respiratory Rate 16 12/14/2022 12:00 PM CDT Oxygen Saturation 93% 12/14/2022 12:00 PM CDT Inhaled Oxygen Concentration - - Weight 72.3 kg (159 lb 6.3 oz) 12/14/2022 7:37 A M CDT Height 160 cm (5' 3) 08/10/2023 2:21 PM QUALITY CONTROL MICROBIOLOGIST Body Mass Index 28.96 11/23/2022 2:32 PM CDT Plan of Treatment Not on file Medical Devices Implanted Type Area Waiter/[employer] Device Identifier Shelf Expiration Date Model / Serial / Lot Knee Implant Knee Implant Knee Description:TKA both left an d right knee Procedures Procedure Name Priority Date/Time Associated Diagnosis Comments CREATININE, POCT, B Routine 04/16/2023 9 :10 AM CDT COMPREHENSIVE METABOLIC PANEL, S/P Routine 04/16/2023 8:39 AM CDT Malignant Neoplasm Of Liver Hepatocellular (HCC) from Last 3 Months or Most Recently Relevant to Health Maintenance Results * Creatinine, POCT (04/16/2023 9:10 AM CDT) Creatinine, POCT, B 0.9 0.6 - 1.0 mg/dL 04/16/2023 9:13 AM CDT PCDT Comment: ----ADDITIONAL INFORMATION---- Performed at the Point of Care Blood 04/16/2023 9:10 AM CDT 04/16/2023 9:14 AM CDT Unknown Provider LAB POCT ORDERABLES - DEVICE POC [facility] [address] [place] [address], [facility] PCDT [facility] POC [address] [place] [address] * (ABNORMAL) Comprehensive Metabolic Panel (04/16/2023 8:39 AM CDT) Potassium, S 3.9 3.6 - 5.2 mmol/L 04/16/2023 9:33 AM CDT DTL Sodium, S 136 135 - 145 mmol/L 04/16/2023 9:33 AM CDT DTL Chloride, S 96(L) 98 - 107 mmol/L 04/16/2023 9:33 AM CDT DTL Bicarbonate, S 29 22 - 29 mmol/L 04/16/2023 9:33 AM CDT DTL Anion Gap 11 7 - 15 04/16/2023 9:33 AM CDT DTL BUN (Blood Urea Nitrogen), S 16 6 - 21 mg/dL 04/16/2023 9:33 AM CDT DTL Creatinine 0.84 0.59 - 1.04 mg/dL 04/16/2023 9:33 AM CDT DTL Estimated GFR (eGFR) 71 >=60 mL/min/BS A 04/16/2023 9:33 AM CDT DTL Comment: Estimated GFR calculated using the 2020 CKD_EPI creatinine equation. Calcium, Total, S 9.9 8.8 - 10.2 mg/dL 04/16/2023 9:33 AM CDT DTL Glucose, S 93 70 - 140 mg/dL 04/16/2023 9:33 AM CDT DTL Protein, Total, S 7.7 6.3 - 7.9 g/dL 04/16/2023 9:33 AM CDT DTL Albumin, S 4.6 3.5 - 5.0 g/dL 04/16/2023 9:33 AM CDT DTL Aspartate Aminotransferase (AST), S 19 8 - 43 U/L 04/16/2023 9:33 AM CDT DTL Alkaline Phosphatase, S 74 35 - 104 U/L 04/16/2023 9:33 AM CDT DTL Alanine Aminotransferase (ALT), S 21 7 - 45 U/L 04/16/2023 9:33 AM CDT DTL Bilirubin, Total, S 0.3 <=1.2 mg/dL 04/16/2023 9:33 AM CDT DTL Blood (Blood, Venous) 04/16/2023 8:39 AM CDT 04/16/2023 9:15 AM CDT Heri Hatfield M.D. LAB BLOOD ADD-ON [facility] [address] [place] [address], [facility] [address] [place] [address] from Last 3 Months or Most Recently Relevant to Health Maintenance Care Teams Siebel Architect Relationship Specialty Start Date End Date Elsewhere, Pcp PCP - General Internal Medicine 04/14/23
--- OUTSIDE RECORDS SUMMARY | 2024-02-08 07:38 | XMS_ITS | Clinical Summary ---
Author Organization [facility] Address [place], [place] [address] Care Team Providers Care City Planning Teacher Name Role Phone Carlita Jack Alberta Unavailable [phone] Marc Villatoro MD Unavailable [phone] AryaYo MD Unavailable [phone] December, Vaishali Rivera RN, BSN Unavailable [phone] Emilia Reveles RN, BSN Unavailable [phone] Zeferino Dobson MD Unavailable [phone] Pcp, No Primary Care Provider Unavailabl e Allergies Active Allergy Reactions Criticality Noted Date Comments Erythromycin GI Upset 11/30/2007 Oxycodone Rash 11/30/2007 feels really out of it Tolerates Tramadol Sulfa (Sulfonamide Antibiotics) Shortness Of Breath 11/30/2007 Tetracycline Diarrhea 11/30/2007 Medications Medication Sig Dispensed Refills Start Date End Date Status calcium carbonate (TUMS) 200 mg calcium (500 mg) chewable tablet Chew 500 mg by mouth 4 times daily if needed for Heartburn. Active famotidine (Pepcid AC) 20 mg tablet Take 20 mg by mouth 2 times daily. Active multivitamins-screen examiner als-lutein (Multivitamin 50 Plus) tab tablet Take 1 Tablet by mouth once daily. Active cholecalciferol (VITAMIN D3) 1,000 unit tablet Take 1,000 units by mouth once daily. Active Cranberry 400 mg capsule Take 400 mg by mouth 2 times daily. Active Lactobacillus acidophilus (PROBIOTIC ORAL) Take 1 Capsule by mouth 2 times daily. Active loratadine (CLARITIN) 10 mg tablet Take 10 mg by mouth once daily if needed for Allergy Symptoms. Active docusate (COLACE) 100 mg capsuleIndications: HCC (hepatocellular carcinoma) (HC) Take 1 Capsule (100 mg) by mouth 2 times daily. Decrease tablets, frequency or stop if loose stools 20 Capsule 02/28/2021 Active acetaminophen (TYLENOL) 325 mg tabletIndications:H CC (hepatocellular carcinoma) (HC) Take 2 Tablets (650 mg) by mouth every 6 hours if needed for Pain. Max acetaminophen dose: 4000mg in 24 hrs. 50 Tablet 03/02/2021 Active estradioL (ESTRACE) 0.01% (0.1 mg/g) vaginal creamIndications:Va ginal atrophy APPLY INTRAVAGINALLY 1 TO 3 TIMES WEEKLY 42.5 g 2 01/04/2023 Active hydroCHLOROthiazide (HCTZ) 25 mg tabletIndications:E ssential hypertension TAKE 1 TABLET DAILY 90 Tablet 03/18/2023 Active atenoloL (TENORMIN) 50 mg tabletIndications:E ssential hypertension TAKE 1 TABLET DAILY 90 Tablet 05/03/2023 Active amLODIPine (NORVASC) 5 mg tabletIndications:E ssential hypertension TAKE 1 TABLET DAILY 90 Tablet 1 05/17/2023 Active gabapentin (NEURONTIN) 300 mg capsuleIndications: Lumbar radiculopathy Take 1 Capsule (300 mg) by mouth at bedtime. 30 Capsule 3 05/17/2023 Active azelastine 137 mcg/actuation (ASTELIN) nasal sprayIndications:Al lergic rhinitis, unspecified seasonality, unspecified trigger Inhale 1 [place] into affected nostril(s) 2 times daily if needed for Rhinitis. 30 mL 12/07/2023 Active Active Problems Problem Noted Date Diagnosed Date Emphysema of left lung 10/01/2022 Depression, recurrent 10/01/2022 Primary cancer of right upper lobe of lung 01/31 S/P lobectomy of lung 01/31/2021 Overview: S/p right thoracotomy, right upper lobectomy, thoracic lymphadenectomy performed by Dr. Dobson 01/31/2021 Adenocarcinoma, lung, right 01/29/2021 HCC (hepatocellular carcinoma) 12/27/2020 Cancer Staging:Clinical stage from 12/27/2020:Stage IB(cT1b, cN0, cM0) - Signed by Bryan Wilson MD on 12/27/2020 Pathologic stage from 02/27/2021:Stage Unknown(pT4, pNX, cM0) - Signed by Brenda Land PA on 03/17/2021 Osteopenia of multiple sites 02/06/2018 Overview: 2008 normal. 01/2018 osteopenia, repeat 3-5 years Arthritis of right knee 10/14/2016 Overview: Sep 2016: cortisone injection to right knee for osteoarthritis. Good benefit for approximately 6 months. Apr 2017: cortisone injection to right knee, right knee is 45-50% better at 10 days. Chronic pain of left knee 02/07/2015 Overview: 2008 left knee injection. January 2015: Dr. Orona did left knee cortisone injection for Osteoarthritis. Mar 2015: Synvisc ONE injection by Dr. Quigley, no benefit the first 2 months, then benefit late? July 2015: Dr. Orona left knee cortisone injection. February 2016: Dr. Orona left knee cortisone injection, 90-100% pain relief for 4- 5 months. Jul 2016: left knee cortisone injection. Good benefit for approximately 7-8 months. Apr 2017: cortisone injection to left knee. left knee is doing 80-85% better at 10 days. Non-celiac gluten sensitivity 01/09/2014 ACP (advance care planning) 12/23/2011 Overview: Has done plan at home. Will bring in. Alejandra Hsu M.D. 12/23/2011 9:13 AM Cystocele, midline 12/17/2010 Overview: Uses pessary Nipple retraction 12/10/2009 Sensorineural hearing loss, bilateral 08/30/2009 Vaginitis and vulvovaginitis, unspecified 2008 Other and unspecified hyperlipidemia Allergic rhinitis, cause unspecified Unspecified essential hypertension Resolved Problems Problem Noted Date Diagnosed Date Resolved Date Routine general medical exam ination at a health care facility 12/23/2011 03/27/2020 Overview: dexa normal 2008. No need to repeat Sebaceous cyst 12/10/2009 12/17/2010 Knee pain 12/10/2009 12/17/2010 Acute sinusitis, unspecified 04/19/2009 01/09/2014 Unspecified asthma(493.90) 0 02/22/2009 Encounters Date Type Department Care Team Description 12/07/2023 Refill [facility] [address] [place] [address] Diann Mcginnis PA Refill Request (Azelastine 137 Mcg/actuation) from Last 3 Months Immunizations Name Administration Dates Next Due COVID-19 vaccine (Moderna 100mcg/0.5mL) PF, MDV 10/19/2020,09/21/2020 HepA-HepB (Twinrix) 07/01/2012,01/28/2012,2011 Influenza A (H1N1), Inactivated 08/02/2009 Influenza A (H1N1), Inactiva mark (Age >=3 Years) 08/02/2009 Influenza RIV4 (Age 18+ Year s) PRESERV FREE 05/23/2020,06/09/2019 Influenza, High-dose Inactivated 06/09/2019,090 02/2018,05/06/2017 Influenza, High-dose Quadriv alent Inactivated 05/12/2022,05/23/2021 Influenza, IIV3 (Age >=3 years) 05/12/20 10,04/19/2009,05/30/2008,2006,06/11/2005,06/11/2004,06/19/2003 Influenza, IIV4 05/14/2016 Influenza, Inactivated IIV3 (Age 65+ Years) Preserv Free 05/16/2017 Pneumococcal Poly,23-Valent (Pneumovax) 12/10/2009,06/19/2003 Pneumococcal conj 13-Valent (Prevnar 13) 01/11/2015 Tdap 02/04/2017,11/15/2006 Zoster (Zostavax-ZVL, live) 02/28/2015 Family History Medical History Relation Name Comments Stroke Brother Cancer Father lung Cancer-breast Mother Stroke Other 1 cousins w facto r v leiden- patient tested negative Cancer-breast Other 2 aunt Stroke Paternal Grandmother of cva age 55 Cancer-breast Sister skin cancer Anesthesia Malignant Hyperthermia No Family History Cancer-colon No Family History Cancer-ovarian No Family History Relation Name Status Comments Brother Father (Age 61) lung cance r Mother (Age 87) old age Other 1 Other 2 aunt Other Paternal Grandmother Sister Social History Tobacco Use Types Packs/Day Years Used Date Smoking Tobacco: Former Cigarettes 0.8 18 Smokeless Tobacco: Never Tobacco Cessation:Counseling Given: Yes Comments:Quit 35 years ago Alcohol Use Standard Drinks/Week Comments Not Currently 1 (1 standard drink = 0.6 oz pur e alcohol) 1 or 2 times per week PHQ-2 Answer Date Recorded PHQ-2 TOTAL SCORE 0 03/31/2022 Social Connections Answer Date Recorded Frequency of Communication with Friends and Fami ly 0 09/09/2023 Financial Resource Strain Answer Date R ecorded Difficulty of Paying Living Expenses 3 09/09/2023 Difficulty of Paying Living Expenses Not on file 09/09/2023 Food Insecurity Answer Date Recorded Worried About Running Out of Food in the Last Ye ar 1 09/09/2023 Transportation Needs Answer Date Record ed Lack of Transportation (Medical) 1 09/09/2023 Housing Stability Answer Date Recorded Unable to Pay for Housing in the Last Year 1 09/09/2023 Sex and Gender Information Value Date Recorded Sex Assigned at Not on file Gender Identity Not on file Sexual Orientation Not on file Obstetrics History Para Term AB IAB SAB Ectopic Multiple Livin g Live Births 3 3 2 1 0 0 0 0 0 2 3 Date Outcome GA Total Labor Labor/2nd/3rd Weight Sex Type Anes PTL Shakira A1 A5 Name Clin Term Vag Term Vag Living Vag Living Last Filed Vital Signs Vital Sign Reading Time Taken Comments Blood Pressure 149/75 09/09/2023 10:15 AM MEDICARE BILLER Pulse 79 09/09/2023 10:15 AM MEDICARE BILLER Temperature 36.7 ??C (98 ??F) 09/09/2023 10:15 AM MEDICARE BILLER Respiratory Rate 16 06/17/2022 12:30 PM CDT Oxygen Saturation 97% 09/09/2023 10:15 AM MEDICARE BILLER Inhaled Oxygen Concentration - - Weight 74.8 kg (165 lb) 09/09/2023 10:15 AM MEDICARE BILLER Height 159.6 cm (5' 2.84) 12/10/2022 9:45 AM CD T Body Mass Index 29.38 12/10/2022 9:45 AM CDT Plan of Treatment Health Maintenance Due Date Last Done Comments Zoster (shingles) series for age 50+ (2 of 3) 04/25/2015 02/28/2015 Depression screening for age 12+ 03/31/2023 03/31/2022, 10/01/2021, 03/27/2020, Additional history exists Medicare Wellness for age 65+ 04/01/2023, 03/27/2020, 03/17/2019, Additional history exists COVID-19 vaccine series ( season) 2023 05/12/2022, 11/13/2021, 06/06/2021, Additional history exists BMI (ht and wt on same day) for age 18+ 12/11/2023 12/10/2022, 06/16/2022, 03/31/2022, Additional history exists Influenza for age 65+ 04/16/2024 05/12/2022 , 05/23/2021, 05/23/2020, Additional history exists Tetanus booster 02/04/2027 02/04/2017, 11/15/2006 Pneumococcal series for age 65+ Completed 01/11/2015, 12/10/2009, 06/19/2003 Tdap Completed 02/04/2017, 11/15/2006 DEXA/DXA scan for age 65+ Completed 02/01/2018, 06/2009 Hepatitis C screening for ag e 18-79 Completed 01/16/2021 Fecal testing non-DNA (FIT,FOBT,iFOBT) for age 45-75 Discontinued 06/22/2022, 06/12/2021, 04/03/2020, Additional history exists Procedures Procedure Name Priority Date/Time Associated Diagnosis Comments OCCULT BLOOD IFOBT STOOL Routine 06/22/2022 8:43 PM MEDICARE BILLER Screening for colon cancer ANTI HCV Routine 01/16/2021 8:15 AM CDT HCC (hepatocellular carcinoma) (HC) XR DXA BONE DENSITY 2 SITES AXIAL Routine 02/01/2018 2:30 PM CDT Disorder of cartilage Osteoporosis screening from Last 3 Months or Most Recently Relevant to Health Maintenance Results * OCCULT BLOOD IFOBT STOOL (06/22/2022 8:43 PM MEDICARE BILLER) STOOL BLOOD ,IFOBT Negative Negative 06/26/2022 12:19 PM MEDICARE BILLER [facility] Stool STOOL SPECIMEN / Unknown Non-Blood / Unknown 06/22/2022 8:43 PM MEDICARE BILLER 06/25/2022 8:43 PM MEDICARE BILLER [facility] [address] [place] [address], * ANTI HCV (01/16/2021 8:15 AM CDT) Pathologist [facility] HEPATITIS C ANTIBODY Non-React kasey Non-React kasey 01/16/2021 9:28 AM CDT [facility] Comment:Antibodies to HCV no t detected; does not exclude the possibility of exposure to HCV. Blood BLOOD SPECIMEN / Unknown Venipuncture / Unknown 01/16/2021 8:15 AM CDT 01/16/2021 8:23 AM CDT Bryan Wilson MD SEND OUTS [facility] [address] [place] [address], * (ABNORMAL) XR DXA BONE DENSITY 2 SITES AXIAL (02/01/2018 2:30 PM CDT) Anatomical Region Laterality Modality Spine, HIPS, HIPL, HIPR Other Narrative 02/04/2018 4:39 PM CDT Please see scanned document for results of this study. Rosalie Renteria DO [place] from Last 3 Months or Most Recently Relevant to Health Maintenance Advance Directives Documents on File Type Date Recorded Patient Insurance Sales Specialist Expl anation Healthcare Directive 02/04/2012 1:23 PM HE ALTH CARE DIRECTIVE, [facility], 09/30/2007 * Full Code (Latest Code Status on File) Date Activated Date Inactivated Comments 02/27/2021 8:41 AM 03/02/2021 7:24 PM Question Answer Comments Code Status Discussion: Not Discussed * Full Code Date Activated Date Inactivated Comments 01/31/2021 6:11 AM 02/02/2021 2:41 PM Question Answer Comments Code Status Discussion: Not Discussed * Full Code Date Activated Date Inactivated Comments 01/06/2021 9:05 AM 01/06/2021 2:49 PM Question Answer Comments Code Status Discussion: Per Existing Order Care Teams City Planning Teacher Relationship Specialty Start Date End Date Pcp, No . PCP - General 05/04/23 Carlita Jack AuD Audiology 08/22/12 Marc Villatoro MD Allergy and Immunology 01/04/13 Yo Koenig MD Surgery - Otolaryngology 01/04/13December, Vaishali Rivera RN, BSN [address] [address] Cancer Nurse Coordinator Oncology 12/13/20 Emilia Reveles, RN, BSN [address] [place] [phone] Nurse Navigator Registered Nurse 01/20/21 Zeferino Dobson MD [address] [place] [id number] [place] [address] Consulting Physician Surgery - Cardiothoracic 01/24/21
--- OUTSIDE RECORDS SUMMARY | 2024-02-08 07:38 | XMS_ITS | Clinical Summary ---
Author Organization [facility] Address [address] [place] [address] Care Team Providers Care Utility Locate Technician Name Role Phone Elsewhere, Pcp Primary Care Provider Unavailabl e Source Comments Patient records contain information from all sites at [facility]. For routine questions regarding patient records, call [phone] during business hours, M-F 8:00 AM - 5:00 PM Central Time. Record requests for emergency care only can be directed to [phone] at any time.[facility] Allergies Active Allergy Reactions Criticality Noted Date [...] mcg/spray (0.1 %) nasal spray Inhale 1 [place] into affected nostril(s) 2 times daily if [...] Overview: Uses pessary Acute Vaginitis 04/19/2009 12/07/2022 Family History Medical History Relation Name Comments Lung cancer Father sami barreto Breast cancer Father's Sister ?mary lou Breast cancer Mother dary barreto Breast cancer Sister 1 lexy valencia Depression Sister 1 lexy valencia Parkinson disease Sister 1 lexy valencia Skin cancer Sister 2 alisha crum Relation Name Status Comments Father sami barreto Father's Sister ?mary lou Mother dary barreto Sister 1 lexy valencia Sister 2 alisha crum Social History Tobacco Use Types Packs/Day Years [...] week 11/16/2022 How often do you attend chur ch or scientology services? More than 4 times per year 11/16/2022 Do you belong to any clubs o r organizations such as islam groups, unions, fraternal or athletic groups, or [...] and heating? Not hard at all 11/16/2022 [facility] - Occupational Stress Questionnaire Answer Date Recorded [...] place to sleep or slept in a alf (including now)? 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 Body Mass Index 28.96 11/23/2022 2:32 PM CDT Plan of Treatment Health Maintenance Due Date Last Done Comments Depression Monitoring (PHQ-9) 1945 Hepatitis C Screening 1945 Zoster Vaccines (3 of 3) 06/22/2023 04/27/2023, 02/13 Fall Risk Screen (Annual) 08/16/2023 COVID-19 Vaccine (2022-09 4 season) 2023 05/16/2023, 05/12/2022, 11/13/2021, Additional history exists Office Visit for Blood Press ure Check / Re-check 11/24/2023 11/23/2022 Creatinine Level (Kidney Fun ction Test) 04/16/2024 04/16/2023, 04/16/2023, 12/08/2022, Additional history exists Potassium Level 04/16/2024 04/16/2023, 11/15, 11/23/2022, Additional history exists Sodium Level 04/16/2024 04/16/2023, 11/15, 11/23/2022, Additional history exists DTaP,Tdap,and Td Vaccines (3 - Td or Tdap) 02/04/2027 02/04/2017, 11/15/2006 Hepatitis A Vaccines Completed 07/01/2012, 01/28/2012, 12/23/2011 Hepatitis B Vaccines Completed 07/01/2012, 01/28/2012, 12/23/2011 Pneumococcal vaccine (65+ years) Completed 01/11/2015, 12/10/2009, 06/19/2003 Influenza Vaccine Completed 05/06/2023, , 05/23/2021, Additional history exists Medical Devices Implanted Type Area Pinsetter Mechanic Helper Device Identifier Shelf Expiration Date Model / [...] Provider LAB POCT ORDERABLES - DEVICE POC [facility] [address] [place] [address], [place] PCDT [facility] [place] POC [address] [place] [address] * (ABNORMAL) Comprehensive Metabolic Panel (04/16/2023 8:39 AM CDT) Pathologist [facility] Potassium, S 3.9 3.6 - 5.2 mmol/L [...] CDT Heri Hatfield M.D. LAB BLOOD ADD-ON [facility] [address] [place] [address], [place] DTL [facility] [address] [place] [address] from Last 3 Months or Most Recently Relevant to Health Maintenance Care Teams Utility Locate Technician Relationship Specialty Start Date End Date Elsewhere, Pcp PCP - General Internal Medicine 04/14/23
--- NOTE | 2024-02-08 08:00 | CRLHL7_ITS ---
For Patients: As a result of the Century Cures Act, medical imaging exams and procedure reports are released immediately into your electronic medical record. You may view this report before your referring provider. If you have questions, please contact your health care provider. Indication: Follow-up lung and liver cancer Technique: Postcontrast CT of the chest, abdomen, and pelvis with multiplanar reformats following 80 mL Isovue 370 IV. Comparison: Multiple examinations, most recently CT chest abdomen pelvis performed 11/01/2023 Findings: Chest: Lungs: Multiple solid and ground-glass foci are again noted within the bilateral lungs. Ground-glass focus in the left lung apex measures 2.3 centimeters, unchanged. Ground-glass focus in the right lung apex measures 2.0 centimeters, unchanged. Solid nodules measure up to 9 millimeters, unchanged. No new or enlarging nodule appreciated. Areas of scarring and/or atelectasis present. Mediastinum: Calcified coronary arterial atherosclerosis. Lymph nodes: No gross lymphadenopathy. Soft tissues: No acute abnormality appreciated. Bones: No acute abnormality appreciated. Abdomen and Pelvis: Hepatobiliary: Indeterminate density lesion within the right liver measures 3.5 x 3.0 centimeters, not significantly changed. Postoperative changes from partial hepatectomy again noted. No new or enlarging hepatic lesion is appreciated. Status post cholecystectomy. Spleen: Unremarkable. Pancreas: No acute abnormality appreciated. Adrenal glands: No acute abnormality appreciated. Kidneys: No significant parenchymal abnormality appreciated. No visualized calculi. No hydronephrosis. Bowel: No obstruction. Diverticulosis. The appendix is visualized and appears unremarkable. Vascular: No acute abnormality appreciated. Calcified and noncalcified atherosclerotic plaque. Lymph nodes: No gross lymphadenopathy. Peritoneum: No free air. No free fluid. : No acute abnormality appreciated. Soft tissues: No acute abnormality appreciated. Diastasis rectus containing fat. Bones: No acute fracture. No lytic or blastic lesion. Impression: No significant interval change is appreciated. Multiple pulmonary nodules, postoperative changes to the liver, and the indeterminate density lesion in the liver all appear similar to prior study with no evidence of disease progression. Additional chronic findings as above. Please note that all CT scans at this facility use dose modulation, iterative reconstruction, and/or weight-based dosing when appropriate to reduce radiation dose to as low as reasonably achievable. Dictated by Les Hilton MD @ 02/08/2024 6:48:03 PM (Electronically Signed)
== END 2024-02-08 07:33 | disposition home or self-care (01) ==
LOC: CT 07:34
PROVIDERS: PCP Internal Medicine; Visit Provider Internal Medicine Hematology & Oncology
DX: C22.9 Malignant neoplasm of liver, not specified as primary or secondary (principal); R91.8 Other nonspecific abnormal finding of lung field; Z85.118 Personal history of other malignant neoplasm of bronchus and lung; Z51.12 Encounter for antineoplastic immunotherapy
CPT/HCPCS: 71260; 74177; Q9967

== ENCOUNTER 2024-06-13 08:06 | Outpatient (CLI) | payer MEDICARE, SELFPAY ==
--- OUTSIDE RECORDS SUMMARY | 2024-06-13 08:09 | XMS_ITS | Clinical Summary ---
Author Organization [facility] Address [address] [place] [address] Care Team Providers Care Elementary School Tutor Name Role Phone Elsewhere, Pcp Primary Care Provider Unavailabl e Source Comments Patient records contain information from all sites at [facility]. For routine questions regarding patient records, call [phone] during business hours, M-F 8:00 AM - 5:00 PM Central Time. Record requests for emergency care only can be directed to [phone] at any time.[facility] Allergies Active Allergy Reactions Criticality Noted Date Comments Erythromycin GI intolerance 11/30/2007 Nickel Other (see comments) 03/16/2023 Oxycodone Rash 11/30/2007 feels really out of it Tolerates Tramadol Sulfa (Sulfonamide Antibiotics) Shortness of breath (Reselect Reaction) 11/30/2007 Tetracycline Diarrhea 11/30/2007 Medications multivitamin-min erals-lutein (Multivitamin 50 Plus) tablet Take 1 tablet by mouth daily. Active loratadine (CLARITIN) 10 mg tablet Take 10 mg by mouth at bedtime as needed. Active hydroCHLOROthiaz tiffany (HYDRODIURIL) 25 mg tablet 25 mg daily. 3 Active famotidine (PEPCID) 20 mg tablet Take 20 mg by mouth. Active estradioL (ESTRACE) 0.1 mg/g (0.01%) vaginal cream 3 Active docusate sodium (COLACE) 100 mg capsule Take 100 mg by mouth. 1 Active cranberry 400 mg capsule Take 400 mg by mouth. Active cholecalciferol, vitamin D3, 25 mcg (1,000 Unit) tablet Take 1,000 Units by mouth. Active calcium carbonate (TUMS) 500 mg (200 mg calcium) chewable tablet Chew 500 mg 4 (four) times a day as needed. Active azelastine (ASTELIN) 137 mcg/spray (0.1 %) nasal spray Inhale 1 [place] into affected nostril(s) 2 times daily if needed for Rhinitis. 3 Active atenoloL (TENORMIN) 50 mg tablet 3 Active amLODIPine (NORVASC) 5 mg tablet 3 Active acetaminophen (TYLENOL) 325 mg tablet Take 650 mg by mouth every 6 (six) hours as needed. 1 Active Lactobacillus acidophilus 1 billion cell capsule Take 1 capsule by mouth 2 (two) times a day. Active potassium chloride (K-TAB) 20 mEq CR tablet 20 mEq daily. 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 on 12/03/2022 Malignant Neoplasm Of Liver Hepatocellular 12/27 Other Specified Disorders Of Bone Density And Structure Multiple Sites 02/06/2018 12/07/2022 Overview (12/07/2022): 2008 normal. 01/2018 osteopenia, repeat 3-5 years Cystocele Midline 12/17/2010 12/07/2022 Overview (12/07/2022): Uses pessary Acute Vaginitis 04/19/2009 12/07/2022 Family [...] 11/16/2022 How often do you attend chur or hinduism services? More than 4 times per year 11/16/2022 Do you belong to any clubs o r organizations such as nondenominational groups, unions, fraternal or athletic groups, or [...] and heating? Not hard at all 11/16/2022 [facility] Occupat ional Health - Occupational Stress [...] place to sleep or slept in a mcc (including now)? No 11/16/2022 Nutrition Answer Date Recorded On average, how many serving s of [...] degree: occupational, technical, or vocational program 11/14/2022 Comments No Sex and Gender Information Value Date Recorded Sex Assigned at Female 11/14/2022 3:32 PM CDT Legal Sex Female 12:56 PM MEDICAL SOCIAL WORKER Gender Identity Female 11/14/2022 3:32 PM CDT [...] 160 cm (5' 3) 08/10/2023 2:21 PM MEDICAL SOCIAL WORKER Body Mass Index 28.96 11/23/2022 2:32 PM CDT Plan of Treatment Health Maintenance Due Date Last Done Comments Depression Monitoring (PHQ-9) 1945 Fall Risk Screen (Annual) 08/16/2023 Office Visit for Blood Press ure Check / Re-check 11/24/2023 11/23/2022 Creatinine Level (Kidney Fun ction Test) 04/16/2024 04/16/2023, 04/16/2023, 12/08/2022, Additional history exists Potassium Level 04/16/2024 04/16/2023, 11/15, 11/23/2022, Additional history exists Sodium Level 04/16/2024 04/16/2023, 11/15, 11/23/2022, Additional history exists COVID-19 Vaccine (8 - 2023-2 5 season) 2024 02/24/2024, 05/16/2023, 05/12/2022, Additional history exists Influenza Vaccine (#1) 2024 , 05/12/2022, 05/23/2021, Additional history exists DTaP,Tdap,and Td Vaccines (3 - Td or Tdap) 02/04/2027 02/04/2017, 11/15/2006 Hepatitis A Vaccines Completed 07/01/2012, 01/28/2012, 12/23/2011 Hepatitis B Vaccines Completed 07/01/2012, 01/28/2012, 12/23/2011 Pneumococcal vaccine (65+ years) Completed 01/11/2015, 12/10/2009, 06/19/2003 RSV vaccine - (32-3 6 weeks) or 60+ years Completed 07/22/2023 Zoster Vaccines Completed 08/02/2023, 04/16, 02/28/2015 Medical Devices Implanted Type Area Emergency Room Technician Device Identifier Shelf Expiration Date Model / [...] 9:10 AM CDT 04/16/2023 9:14 AM CDT us Unknown Provider LAB POCT ORDERABLES - DEVICE Fi nal Result POC [facility] [address] [place] [address], [facility] PCDT [facility] [place] POC [address] [place] [address] * (ABNORMAL) Comprehensive Metabolic Panel (04/16/2023 8:39 [...] CDT Heri Hatfield M.D. LAB BLOOD ADD-ON Final Result [facility] [address] [place] [address], [facility] [address] [place] [address] from Last 3 Months or Most Recently Relevant to Health Maintenance Insurance [employer] Care Teams Elementary School Tutor Relationship Specialty Start Date End Date Elsewhere, Pcp PCP - General Internal Medicine 04/14/23
--- OUTSIDE RECORDS SUMMARY | 2024-06-13 08:09 | XMS_ITS | Clinical Summary ---
Author Organization [facility] Address [place], [place] [address] Care Team Providers Care Coremaker Experimental Name Role Phone Carlita Ritchie [place] Unavailable [phone] HelMarc MD Unavailable AryaYo MD Unavailable December, Vaishali Rivera RN, BSN Unavailable [phone] Emilia Reveles RN, BSN Unavailable [phone] Zeferino Dobson MD Unavailable [phone] Pcp, No Primary Care Provider Unavailabl e [...] mg by mouth 2 times daily. Active multivitamins-merchandise examiner als-lutein (Multivitamin 50 Plus) tab tablet [...] rhinitis, unspecified seasonality, unspecified trigger Inhale 1 [place] into affected nostril(s) 2 times daily if needed for Rhinitis. 30 mL 03/24/2024 Active Active Problems Problem Noted Date Diagnosed Date Emphysema of left lung 10/01/2022 Depression, recurrent 10/01/2022 Primary cancer of right upper lobe of lung 01/31 S/P lobectomy of lung 01/31/2021 Overview (01/31/2021): S/p right thoracotomy, right upper lobectomy, thoracic lymphadenectomy performed by Dr. Dobson 01/31/2021 Adenocarcinoma, lung, right 01/29/2021 HCC (hepatocellular carcinoma) 12/27/2020 Cancer Staging:Clinical stage from 12/27/2020:Stage IB(cT1b, cN0, cM0) - Signed by Bryan Wilson MD on 12/27/2020 Pathologic stage from 02/27/2021:Stage Unknown(pT4, pNX, cM0) - Signed by Brenda Land PA on 03/17/2021 Osteopenia of multiple sites 02/06/2018 Overview (02/06/2018): 2008 normal. 01/2018 osteopenia, repeat 3-5 years Arthritis of right knee 10/14/2016 Overview (04/30/2017): Sep 2016: cortisone injection to right knee for osteoarthritis. Good benefit for approximately 6 months. Apr 2017: cortisone injection to right knee, right knee is 45-50% better at 10 days. Chronic pain of left knee 02/07/2015 Overview (04/30/2017): 2008 left knee injection. January 2015: Dr. [...] sensitivity 01/09/2014 ACP (advance care planning) 12/23/2011 Overview (12/23/2011): Has done plan at home. Will bring in. Aleajndra Hsu M.D. 12/23/2011 9:13 AM Cystocele, midline 12/17/2010 Overview (12/17/2010): Uses pessary Nipple retraction 12/10/2009 Sensorineural hearing loss, bilateral 08/30/2009 Vaginitis and vulvovaginitis, unspecified 2008 Other and unspecified hyperlipidemia Allergic rhinitis, cause unspecified Unspecified essential hypertension Resolved Problems Problem Noted Date Diagnosed Date Resolved Date Routine general medical exam ination at a health care facility 12/23/2011 03/27/2020 Overview (12/23/2011): dexa normal 2008. No need to repeat Sebaceous cyst 12/10/2009 12/17/2010 Knee pain 12/10/2009 12/17/2010 Acute sinusitis, unspecified 04/19/2009 01/09/2014 Unspecified asthma(493.90) 0 02/22/2009 Encounters Date Type Department Care Team Description 03/21/2024 Refill [facility] [address] [place] [address] Diann Mcginnis PA Refill Request (Azelastine 137 Mcg/actuation) from Last 3 Months Immunizations Name Administration Dates Next Due COVID-19 vaccine (Moderna 100mcg/0.5mL) PF, MDV 10/19/2020,09/21/2020 HepA-HepB (Twinrix) 07/01/2012,01/28/2012,2011 Influenza A (H1N1), Inactivated 08/02/2009 Influenza A (H1N1), Inactiva mark (Age >=3 Years) 08/02/2009 Influenza RIV4 (Age 18+ Year s) PRESERV FREE 05/23/2020,06/09/2019 Influenza, High-dose Inactivated 06/09/2019,09/0 02/2018,05/06/2017 Influenza, High-dose Quadriv alent Inactivated 05/12/2022,05/23/2021 [...] 0 03/31/2022 Social Connections Answer Date Recorded Do you often feel lonely or isolated from those around you? 0 09/09/2023 Financial Resource Strain Answer Date R ecorded Difficulty of Paying Living Expenses 3 09/09/2023 Difficulty of Paying Living Expenses Not on file 09/09/2023 Food Insecurity Answer Date Recorded Do you worry your food will run out before you are able to buy more? 1 09/09/2023 Transportation Needs Answer Date Record ed Does lack of transportation keep you from medica l appointments? 1 09/09/2023 Does lack of transportation keep you from work, meetings or getting things that you need? 1 09/09/2023 Housing Stability Answer Date Recorded What is your housing situation today? 1 09/09/2023 Sex and Gender Information Value [...] Comments Blood Pressure 149/75 09/09/2023 10:15 AM EARLY INTERVENTIONIST Pulse 79 09/09/2023 10:15 AM EARLY INTERVENTIONIST Temperature 36.7 ??C (98 ??F) 09/09/2023 10:15 AM EARLY INTERVENTIONIST Respiratory Rate 16 06/17/2022 12:30 PM CDT Oxygen Saturation 97% 09/09/2023 10:15 AM EARLY INTERVENTIONIST Inhaled Oxygen Concentration - - Weight 74.8 kg (165 lb) 09/09/2023 10:15 AM EARLY INTERVENTIONIST Height 159.6 cm (5' 2.84) 12/10/2022 9:45 AM CD T Body Mass Index 29.38 12/10/2022 9:45 AM CDT Plan of Treatment Health Maintenance Due Date Last Done Comments Zoster (shingles) series for age 50+ (2 of 3) 04/25/2015 02/28/2015 RSV vaccine for adults or (1 - 1-dose 75+ series) 02/15/2019 Depression screening for age 12+ 03/31/2023 03/31/2022, 10/01/2021, 03/27/2020, Additional history exists Medicare Wellness for age 65+ 04/01/2023, 03/27/2020, 03/17/2019, Additional history exists BMI (ht and wt on same day) for age 18+ 12/11/2023 12/10/2022, 06/16/2022, 03/31/2022, Additional history exists COVID-19 vaccine series ( season) 2024 05/12/2022, 11/13/2021, 06/06/2021, Additional history exists Influenza for age 65+ 04/16/2024 05/12/2022 , 05/23/2021, 05/23/2020, Additional history exists Tetanus booster 02/04/2027 02/04/2017, 11/15/2006 Pneumococcal series for age 65+ Completed 01/11/2015, 12/10/2009, 06/19/2003 Tdap Completed 02/04/2017, 11/15/2006 DEXA/DXA scan for age 65+ Completed 02/01/2018, 06/2009 Procedures Procedure Name Priority Date/Time Associated Diagnosis Comments XR DXA BONE DENSITY 2 SITES AXIAL Routine 02/01/2018 2:30 PM CDT Disorder of cartilage Osteoporosis screening from Last 3 Months or Most Recently Relevant to Health Maintenance Results * (ABNORMAL) XR DXA BONE DENSITY 2 SITES AXIAL (02/01/2018 2:30 PM CDT) Anatomical Region Laterality Modality Spine, HIPS, HIPL, HIPR Other Narrative 02/04/2018 4:39 PM CDT Please see scanned document for results of this study. Rosalie Renteria DO DEXA from Last 3 Months or Most Recently Relevant to Health Maintenance Advance Directives Documents on File Type Date Recorded Patient Sign Writer Letterer Or Painter Expl anation Healthcare Directive 02/04/2012 1:23 PM HE ALTH CARE DIRECTIVE, [facility], 09/30/2007 * Full Code (Latest Code Status [...] Status Discussion: Per Existing Order Care Teams Coremaker Experimental Relationship Specialty Start Date End Date Pcp, No . PCP - General 05/04/23 Carlita Ritchie AuD Audiology 08/22/12 Marc Villatoro MD Allergy and Immunology 01/04/13 Yo Koenig MD Surgery - Otolaryngology 01/04/13December, Vaishali Rivera RN, BSN [address] [address] Cancer Nurse Coordinator Oncology 12/13/20 Emilia Reveles, RN, BSN [address] [address] Nurse Navigator Registered Nurse 01/20/21 Zeferino Dobson MD [address] [place] [id number] Consulting Physician Surgery - Cardiothoracic 01/24/21
--- OUTSIDE RECORDS SUMMARY | 2024-06-13 08:09 | XMS_ITS ---
Author Organization [facility] Address [address] [place] [address] Care Team Providers Care Mine Wirer Name Role Phone Unavailable Unavailable Unavailable Surgery Details Not on file Complications Check Surgery Details section. Procedure Estimated Blood Loss Check Surgery Details section. Procedure Findings Check Surgery Details section. Procedure Specimens Taken Check Surgery Details section.
--- OUTSIDE RECORDS SUMMARY | 2024-06-13 08:09 | XMS_ITS | Referral Summary ---
Author Organization [facility] Address [address] [place] [address] Care Team Providers Care Sprinkler Repair Technician Name Role Phone Elsewhere, Pcp Primary Care Provider Unavailabl e Source Comments Patient records contain information from all sites at [facility]. For routine questions regarding patient records, call [phone] during business hours, M-F 8:00 AM - 5:00 PM Central Time. Record requests for emergency care only can be directed to [phone] at any time.[facility] Allergies Active Allergy Reactions Criticality Noted Date [...] mcg/spray (0.1 %) nasal spray Inhale 1 [place] into affected nostril(s) 2 times daily if [...] (12/07/2022): Uses pessary Acute Vaginitis 04/19/2009 12/07/2022 Social [...] How often do you attend chur or worship services? More than 4 times per year 11/16/2022 Do you belong to any clubs o r organizations such as tenriism groups, unions, fraternal or athletic groups, or [...] and heating? Not hard at all 11/16/2022 [facility] Occupat ional Health - Occupational [...] place to sleep or slept in a fci (including now)? No 11/16/2022 Nutrition Answer Date [...] PM CDT Legal Sex Female 12:56 PM VP BIOLOGY Gender Identity Female 11/14/2022 3:32 PM CDT [...] 160 cm (5' 3) 08/10/2023 2:21 PM VP BIOLOGY Body Mass Index 28.96 11/23/2022 2:32 PM CDT Plan of Treatment Not on file Medical Devices Implanted Type Area Tree Feller Operator Device Identifier Shelf Expiration Date Model / [...] ORDERABLES - DEVICE Fi nal Result POC [facility] [address] [place] [address], [facility] PCDT [facility] POC [address] [place] [address] * (ABNORMAL) Comprehensive Metabolic Panel (04/16/2023 8:39 AM CDT) [facility] Potassium, S 3.9 3.6 - 5.2 mmol/L [...] Hatfield M.D. LAB BLOOD ADD-ON Final Result [facility] [address] [place] [address], [place] DTL [facility] [address] [place] [address] from Last 3 Months or Most Recently Relevant to Health Maintenance Insurance [facility] Care Teams Sprinkler Repair Technician Relationship Specialty Start Date End Date Elsewhere, Pcp PCP - General Internal Medicine 04/14/23
--- NOTE | 2024-06-13 08:15 | CRLHL7_ITS ---
For Patients: As a result of the Century Cures Act, medical imaging exams and procedure reports are released immediately into your electronic medical record. You may view this report before your referring provider. If you have questions, please contact your health care provider. INDICATION: History of lung and liver cancer, follow-up TECHNIQUE: 1.5 T MRI of the abdomen was performed with pre and postcontrast T1 weighted imaging; T2 weighted imaging; diffusion weighted imaging; in and out of phase imaging. 13 mL Dotarem administered COMPARISON: CT chest abdomen pelvis 05/18/2024 and 07/21/2023, MR abdomen 09/17/2022 and 02/27/2022 FINDINGS: Lungs: The lung bases are clear. No pleural or pericardial effusion. Please see recently performed CT chest abdomen pelvis for additional findings above the diaphragm. Liver: Homogeneous liver parenchyma. No hepatic steatosis. Postsurgical changes partial right hepatic lobe resection. Increased size of a segment 7 mass measuring up to 3 cm (04/26), previously 2 cm on prior abdominal MRI. This lesion is intrinsically T1 isointense, heterogeneously T2 isointense, and mostly hypo enhances on all post-contrast sequences. Along the superolateral aspect of the lesion, there are two nodular foci of possible arterial enhancement measuring 0.6 and 0.7 cm (). Previously seen peritoneal nodularity within the hepatic flexure is not well evaluated on this exam, however not definitely increased compared to prior MRI. Biliary tree and gallbladder: No intra or extrahepatic biliary dilation. Prior cholecystectomy Spleen: Unremarkable Pancreas: Normal pancreatic parenchyma. No pancreatic masses. No pancreatic duct dilation. Adrenal glands: Unremarkable. Kidneys and ureters: No renal masses or hydronephrosis. Bilateral renal cysts. GI tract: No evidence of obstruction or inflammation. Colonic diverticulosis. Vasculature: The IVC and aorta are patent. No abdominal aortic aneurysm. Moderate atherosclerotic disease of the abdominal aorta. Lymph nodes: Stable borderline enlarged left periaortic lymph node measuring up to 0.9 cm (17/42), previously 0.[address] from 07/21/2023 Peritoneum: Prominent left anterior peritoneal nodule/lymph node measuring 0.7 cm (8/16), similar to prior CT from 02/08/2024 although increased compared to CT from 07/21/2023 where it measured 0.4 cm. Abdominal wall: Mildly asymmetrically prominent right breast tissue without discrete nodularity or mass, similar in appearance dating back to 2021. Similar diastasis rectus. Bones: Degenerative change of the imaged spine. IMPRESSION: 1. Increased size of a segment 7 hepatic lesion with two possible foci of suspicious nodular enhancement along the superolateral margin, concerning for viability. 2. Increasing size of a subcentimeter left peritoneal nodule versus lymph node, that is indeterminate for metastatic disease, although concerning given change in size. 3. Prior partial right hepatic lobe resection without evidence of recurrence at the surgical margin. Dictated by Antonette Ingram MD @ 06/15/2024 10:34:44 AM (Electronically Signed)
== END 2024-06-13 08:07 | disposition home or self-care (01) ==
LOC: MRI 08:07
PROVIDERS: PCP Internal Medicine; Visit Provider Internal Medicine Hematology & Oncology
DX: C22.9 Malignant neoplasm of liver, not specified as primary or secondary (principal); R59.0 Localized enlarged lymph nodes
CPT/HCPCS: 74183; A9575

== ENCOUNTER 2024-07-24 08:00 | Outpatient (RCR) | payer MEDICARE, SELFPAY ==
[2024-01-31 08:39] LABS: Basophils Absolute Auto 0.09 K/uL (0.00-0.30); Basophils Percent Auto 1.5 % (0.0-3.0); Eosinophils Percent Auto 7.2 % (0.0-7.0); Hematocrit 40.6 % (33.0-51.0); Hemoglobin* 13.2 gm/dL (12.0-16.0); Immature Granulocytes Abs Auto 0.01 K/uL (0.00-0.30); Immature Granulocytes Pct Auto 0.2 %; Lymphocytes Absolute Auto 1.47 K/uL (0.90-2.90); Lymphocytes Percent Auto 25.2 % (20-44); Mean Corpuscular HGB Conc 33 gm/dL (32-36); Mean Corpuscular Hemoglobin 31 pg (26-34); Mean Corpuscular Volume 95 fL (80-100); Monocytes Percent Auto 10.8 % (0.0-11.0); Neutrophils Absolute Auto 3.22 K/uL (1.7-7.0); Neutrophils Percent Auto 55.1 % (42.0-72.0); Platelet Count* 288 K/uL (140-440); RDW Coefficient of Variation % 13.8 % (11.5-15.5); Red Blood Count 4.26 m/uL (4.00-5.20); White Blood Count* 5.84 K/uL (4.50-11.00)
[2024-01-31 08:41] LABS: Slide Review Reflex No
[2024-01-31 09:21] LABS: Albumin* 4.6 g/dL (3.3-5.0); Chloride* 100 mmol/L (96-114); Sodium* 136 mmol/L (135-149)
[2024-01-31 09:22] LABS: Potassium* 3.4 mmol/L (3.6-5.1)
[2024-01-31 09:24] LABS: Anion Gap 6 mEq/L (7-15); Aspartate Amino Transferase* 25 U/L (12-35); Bilirubin Total* 0.7 mg/dL (0.1-1.5); Carbon Dioxide* 30 mmol/L (20-32); Creatinine* 0.8 mg/dL (0.5-1.5); Estimated Glomerular Filt Rate 75 ml/min; Total Protein* 7.8 g/dL (6.0-8.3)
[2024-01-31 09:25] LABS: Alanine Aminotransferase* 19 U/L (4-35); Alkaline Phosphatase* 62 U/L (40-150); Blood Urea Nitrogen* 19 mg/dL (7-30); Calcium* 9.2 mg/dL (8.4-10.6); Glucose* 101 mg/dL (60-115)
[2024-02-01 08:46] VITALS: BP 118/68; PULSE 70; RESP 16; TEMP 36.3; O2SAT 96
[2024-02-01] MEDS: DURVALUMAB 1,500 MG, TUBING PRIMARY 1 EACH, In-line 0.2 micron filter set 1 EACH in 0.9... 280 MG IVPB (09:00)
[2024-02-01] MEDS: SODIUM CHLORIDE 0.9 % (FLUSH) 10 ML SYRINGE IVF (09:05)
[2024-02-01] MEDS: 0.9 % SODIUM CHLORIDE 250 ml IV (09:05)
--- NOTE | 2024-02-16 15:30 | ONC.NURNOTE ---
Pt seen by Dr. Sims today, order received for signatera testing. Blood collected and sent via [employer].
[2024-02-18 00:39] LABS: Alpha Fetoprotein Tumor Marker 4 ng/mL (0-9)
[2024-02-28 08:34] LABS: Basophils Absolute Auto 0.05 K/uL (0.00-0.30); Basophils Percent Auto 0.9 % (0.0-3.0); Eosinophils Absolute Auto 0.37 K/uL (0.00-0.50); Eosinophils Percent Auto 6.5 % (0.0-7.0); Hematocrit 40.6 % (33.0-51.0); Hemoglobin* 13.1 gm/dL (12.0-16.0); Immature Granulocytes Abs Auto 0.01 K/uL (0.00-0.30); Immature Granulocytes Pct Auto 0.2 %; Lymphocytes Percent Auto 24.6 % (20-44); Mean Corpuscular HGB Conc 32 gm/dL (32-36); Mean Corpuscular Hemoglobin 31 pg (26-34); Mean Corpuscular Volume 96 fL (80-100); Monocytes Percent Auto 8.1 % (0.0-11.0); Neutrophils Percent Auto 59.7 % (42.0-72.0); Platelet Count* 276 K/uL (140-440); RDW Coefficient of Variation % 13.9 % (11.5-15.5); Red Blood Count 4.23 m/uL (4.00-5.20); White Blood Count* 5.69 K/uL (4.50-11.00)
[2024-02-28 08:37] LABS: Slide Review Reflex No
[2024-02-28 08:44] LABS: Albumin* 4.3 g/dL (3.3-5.0); Chloride* 103 mmol/L (96-114); Potassium* 3.7 mmol/L (3.6-5.1); Sodium* 137 mmol/L (135-149)
[2024-02-28 08:46] LABS: Anion Gap 6 mEq/L (7-15); Bilirubin Total* 0.4 mg/dL (0.1-1.5); Carbon Dioxide* 28 mmol/L (20-32); Creatinine* 0.7 mg/dL (0.5-1.5); Estimated Glomerular Filt Rate 87 ml/min
[2024-02-28 08:47] LABS: Alanine Aminotransferase* 17 U/L (4-35); Alkaline Phosphatase* 61 U/L (40-150); Aspartate Amino Transferase* 25 U/L (12-35); Blood Urea Nitrogen* 17 mg/dL (7-30); Calcium* 9.5 mg/dL (8.4-10.6); Glucose* 128 mg/dL (60-115); Total Protein* 7.6 g/dL (6.0-8.3)
[2024-02-29 08:00] VITALS: BP 135/87; PULSE 73; RESP 16; TEMP 36.1; O2SAT 99
--- NOTE | 2024-02-29 08:10 | ONC.NURNOTE ---
Addendum entered by Gretchen Hernández RN 02/29/24 08:22: Yesenia is also asking for the results of her Signiture blood test. Original Note: Yesenia's Potassium level was 3.7 yesturday. She has 15 potassium pills left. Should she remain on Potassium. She is not on a Diuretic. Yesenia is going to [place] and is requesting a RX for Paxlovid incase she testes possitive for Covid. She has had the vaccine. Note left for Dr. Sims
[2024-02-29] MEDS: 0.9 % SODIUM CHLORIDE 250 ml IV (08:29)
[2024-02-29] MEDS: SODIUM CHLORIDE 0.9 % (FLUSH) 10 ML SYRINGE IVF (08:29)
[2024-02-29] MEDS: DURVALUMAB 1,500 MG, TUBING PRIMARY 1 EACH, In-line 0.2 micron filter set 1 EACH in 0.9... 280 MG IVPB (08:29)
[2024-03-27 08:57] LABS: Basophils Absolute Auto 0.07 K/uL (0.00-0.30); Basophils Percent Auto 1.1 % (0.0-3.0); Eosinophils Absolute Auto 0.43 K/uL (0.00-0.50); Eosinophils Percent Auto 6.8 % (0.0-7.0); Hematocrit 41.5 % (33.0-51.0); Hemoglobin* 13.3 gm/dL (12.0-16.0); Immature Granulocytes Abs Auto 0.03 K/uL (0.00-0.30); Immature Granulocytes Pct Auto 0.5 %; Lymphocytes Absolute Auto 1.54 K/uL (0.90-2.90); Lymphocytes Percent Auto 24.3 % (20-44); Mean Corpuscular HGB Conc 32 gm/dL (32-36); Mean Corpuscular Hemoglobin 31 pg (26-34); Mean Corpuscular Volume 97 fL (80-100); Monocytes Percent Auto 10.1 % (0.0-11.0); Neutrophils Absolute Auto 3.63 K/uL (1.7-7.0); Neutrophils Percent Auto 57.2 % (42.0-72.0); Platelet Count* 286 K/uL (140-440); RDW Coefficient of Variation % 13.9 % (11.5-15.5); White Blood Count* 6.34 K/uL (4.50-11.00)
[2024-03-27 08:59] LABS: Slide Review Reflex No
[2024-03-27 10:14] LABS: Albumin* 4.5 g/dL (3.3-5.0); Chloride* 99 mmol/L (96-114)
[2024-03-27 10:15] LABS: Potassium* 4.1 mmol/L (3.6-5.1); Sodium* 135 mmol/L (135-149)
[2024-03-27 10:17] LABS: Anion Gap 8 mEq/L (7-15); Bilirubin Total* 0.4 mg/dL (0.1-1.5); Carbon Dioxide* 28 mmol/L (20-32); Creatinine* 0.7 mg/dL (0.5-1.5); Estimated Glomerular Filt Rate 87 ml/min
[2024-03-27 10:18] LABS: Alanine Aminotransferase* 15 U/L (4-35); Alkaline Phosphatase* 67 U/L (40-150); Aspartate Amino Transferase* 27 U/L (12-35); Blood Urea Nitrogen* 16 mg/dL (7-30); Calcium* 9.2 mg/dL (8.4-10.6); Glucose* 87 mg/dL (60-115)
[2024-03-28] MEDS: DURVALUMAB 1,500 MG, TUBING PRIMARY 1 EACH, In-line 0.2 micron filter set 1 EACH in 0.9... 280 MG IVPB (09:16)
[2024-03-28] MEDS: 0.9 % SODIUM CHLORIDE 250 ml IV (09:18)
[2024-03-28] MEDS: SODIUM CHLORIDE 0.9 % (FLUSH) 10 ML SYRINGE IVF (09:18)
[2024-04-25 08:20] LABS: Basophils Absolute Auto 0.09 K/uL (0.00-0.30); Basophils Percent Auto 1.3 % (0.0-3.0); Eosinophils Percent Auto 7.9 % (0.0-7.0); Hematocrit 42.8 % (33.0-51.0); Hemoglobin* 13.9 gm/dL (12.0-16.0); Immature Granulocytes Abs Auto 0.01 K/uL (0.00-0.30); Immature Granulocytes Pct Auto 0.1 %; Lymphocytes Absolute Auto 1.68 K/uL (0.90-2.90); Lymphocytes Percent Auto 23.6 % (20-44); Mean Corpuscular HGB Conc 33 gm/dL (32-36); Mean Corpuscular Hemoglobin 31 pg (26-34); Mean Corpuscular Volume 95 fL (80-100); Neutrophils Absolute Auto 4.13 K/uL (1.7-7.0); Neutrophils Percent Auto 58.1 % (42.0-72.0); Platelet Count* 300 K/uL (140-440); RDW Coefficient of Variation % 13.6 % (11.5-15.5); Red Blood Count 4.51 m/uL (4.00-5.20); White Blood Count* 7.11 K/uL (4.50-11.00)
[2024-04-25 08:22] LABS: Slide Review Reflex No
[2024-04-25 08:36] LABS: Albumin* 4.6 g/dL (3.3-5.0); Chloride* 97 mmol/L (96-114); Sodium* 134 mmol/L (135-149)
[2024-04-25 08:38] LABS: Creatinine* 0.8 mg/dL (0.5-1.5); Est. Creatinine Clearance* 35.49; Estimated Glomerular Filt Rate 74 ml/min
[2024-04-25 08:39] LABS: Alanine Aminotransferase* 16 U/L (4-35); Alkaline Phosphatase* 64 U/L (40-150); Anion Gap 6 mEq/L (7-15); Aspartate Amino Transferase* 27 U/L (12-35); Bilirubin Total* 0.5 mg/dL (0.1-1.5); Blood Urea Nitrogen* 15 mg/dL (7-30); Calcium* 9.5 mg/dL (8.4-10.6); Carbon Dioxide* 31 mmol/L (20-32); Glucose* 112 mg/dL (60-115); Total Protein* 8.1 g/dL (6.0-8.3)
[2024-04-25 12:02] LABS: Cholesterol* 210 mg/dL (90-199); HDL Cholesterol* 44 mg/dL (>=50); LDL Cholesterol Calculated 128 mg/dL (<100); Triglycerides* 191 mg/dL (40-149)
[2024-04-25 12:42] LABS: Vitamin D 25 Hydroxy* 77 ng/mL (30-80)
[2024-04-26 08:12] VITALS: BP 126/71; PULSE 74; RESP 16; TEMP 35.9; O2SAT 94
[2024-04-26] MEDS: DURVALUMAB 1,500 MG, TUBING PRIMARY 1 EACH, In-line 0.2 micron filter set 1 EACH in 0.9... 280 MG IVPB (08:15)
[2024-04-26] MEDS: 0.9 % SODIUM CHLORIDE 250 ml IV (08:16)
[2024-04-26] MEDS: SODIUM CHLORIDE 0.9 % (FLUSH) 10 ML SYRINGE IVF (08:16)
[2024-04-26 16:41] LABS: Alpha Fetoprotein Tumor Marker 4 ng/mL (0-9)
[2024-05-18 08:43] LABS: Basophils Absolute Auto 0.08 K/uL (0.00-0.30); Basophils Percent Auto 1.2 % (0.0-3.0); Eosinophils Absolute Auto 0.24 K/uL (0.00-0.50); Eosinophils Percent Auto 3.6 % (0.0-7.0); Hematocrit 42.3 % (33.0-51.0); Hemoglobin* 13.6 gm/dL (12.0-16.0); Immature Granulocytes Abs Auto 0.01 K/uL (0.00-0.30); Immature Granulocytes Pct Auto 0.1 %; Mean Corpuscular HGB Conc 32 gm/dL (32-36); Mean Corpuscular Hemoglobin 31 pg (26-34); Mean Corpuscular Volume 95 fL (80-100); Monocytes Percent Auto 9.6 % (0.0-11.0); Neutrophils Absolute Auto 4.43 K/uL (1.7-7.0); Neutrophils Percent Auto 66.5 % (42.0-72.0); Platelet Count* 315 K/uL (140-440); RDW Coefficient of Variation % 13.5 % (11.5-15.5); Red Blood Count 4.44 m/uL (4.00-5.20); White Blood Count* 6.67 K/uL (4.50-11.00)
[2024-05-18 08:44] LABS: Slide Review Reflex No
[2024-05-18 09:00] LABS: Albumin* 4.6 g/dL (3.3-5.0); Chloride* 98 mmol/L (96-114); Sodium* 136 mmol/L (135-149)
[2024-05-18 09:01] LABS: Potassium* 3.4 mmol/L (3.6-5.1)
[2024-05-18 09:03] LABS: Alkaline Phosphatase* 64 U/L (40-150); Anion Gap 8 mEq/L (7-15); Aspartate Amino Transferase* 24 U/L (12-35); Bilirubin Total* 0.5 mg/dL (0.1-1.5); Carbon Dioxide* 30 mmol/L (20-32); Creatinine* 0.8 mg/dL (0.5-1.5); Est. Creatinine Clearance* 35.49; Estimated Glomerular Filt Rate 74 ml/min; Total Protein* 8.1 g/dL (6.0-8.3)
[2024-05-18 09:04] LABS: Alanine Aminotransferase* 15 U/L (4-35); Blood Urea Nitrogen* 20 mg/dL (7-30); Calcium* 9.5 mg/dL (8.4-10.6); Glucose* 97 mg/dL (60-115)
[2024-05-19 19:04] LABS: Alpha Fetoprotein Tumor Marker 5 ng/mL (0-9)
[2024-05-25 08:42] VITALS: BP 144/76; PULSE 67; RESP 16; TEMP 36.1; O2SAT 97
[2024-05-25] MEDS: DURVALUMAB 1,500 MG, TUBING PRIMARY 1 EACH, In-line 0.2 micron filter set 1 EACH in 0.9... 280 MG IVPB (09:13)
[2024-06-22 11:56] LABS: Basophils Absolute Auto 0.07 K/uL (0.00-0.30); Eosinophils Absolute Auto 0.25 K/uL (0.00-0.50); Eosinophils Percent Auto 3.6 % (0.0-7.0); Hematocrit 39.7 % (33.0-51.0); Immature Granulocytes Abs Auto 0.02 K/uL (0.00-0.30); Immature Granulocytes Pct Auto 0.3 %; Lymphocytes Percent Auto 23.2 % (20-44); Mean Corpuscular HGB Conc 33 gm/dL (32-36); Mean Corpuscular Hemoglobin 31 pg (26-34); Mean Corpuscular Volume 95 fL (80-100); Monocytes Percent Auto 10.3 % (0.0-11.0); Neutrophils Absolute Auto 4.24 K/uL (1.7-7.0); Neutrophils Percent Auto 61.6 % (42.0-72.0); Platelet Count* 295 K/uL (140-440); RDW Coefficient of Variation % 13.6 % (11.5-15.5); Red Blood Count 4.19 m/uL (4.00-5.20); White Blood Count* 6.89 K/uL (4.50-11.00)
[2024-06-22 12:08] LABS: Slide Review Reflex No
[2024-06-22 12:14] LABS: Albumin* 4.4 g/dL (3.3-5.0); Chloride* 94 mmol/L (96-114)
[2024-06-22 12:15] LABS: Potassium* 3.8 mmol/L (3.6-5.1); Sodium* 133 mmol/L (135-149)
[2024-06-22 12:17] LABS: Anion Gap 8 mEq/L (7-15); Aspartate Amino Transferase* 24 U/L (12-35); Bilirubin Total* 0.2 mg/dL (0.1-1.5); Carbon Dioxide* 31 mmol/L (20-32); Creatinine* 0.7 mg/dL (0.5-1.5); Est. Creatinine Clearance* 35.49; Estimated Glomerular Filt Rate 87 ml/min
[2024-06-22 12:18] LABS: Alanine Aminotransferase* 15 U/L (4-35); Alkaline Phosphatase* 68 U/L (40-150); Blood Urea Nitrogen* 17 mg/dL (7-30); Calcium* 9.6 mg/dL (8.4-10.6); Glucose* 110 mg/dL (60-115); Total Protein* 7.8 g/dL (6.0-8.3)
[2024-06-23 08:43] VITALS: BP 129/72; PULSE 69; RESP 16; TEMP 36; O2SAT 97
[2024-06-23] MEDS: SODIUM CHLORIDE 0.9 % (FLUSH) 10 ML SYRINGE IVF (09:00)
[2024-06-23] MEDS: DURVALUMAB 1,500 MG, TUBING PRIMARY 1 EACH, In-line 0.2 micron filter set 1 EACH in 0.9... 280 MG IVPB (09:06)
--- NOTE | 2024-07-24 07:49 | URNOTE ---
Addendum entered by Ginette Figueroa RN 07/24/24 08:58: approval dates are 07/24/2024-07/24/2025 Original Note: Imfinzi ([id number]) has been approved 07/24/2024-07/24/2024, 1500mg every 28 days. Auth #[id number]
[2024-07-24 08:37] LABS: Basophils Absolute Auto 0.08 K/uL (0.00-0.30); Basophils Percent Auto 1.2 % (0.0-3.0); Hematocrit 40.2 % (33.0-51.0); Hemoglobin* 13.1 gm/dL (12.0-16.0); Immature Granulocytes Abs Auto 0.03 K/uL (0.00-0.30); Immature Granulocytes Pct Auto 0.4 %; Lymphocytes Absolute Auto 1.49 K/uL (0.90-2.90); Lymphocytes Percent Auto 22.3 % (20-44); Mean Corpuscular HGB Conc 33 gm/dL (32-36); Mean Corpuscular Hemoglobin 31 pg (26-34); Mean Corpuscular Volume 96 fL (80-100); Monocytes Percent Auto 8.7 % (0.0-11.0); Neutrophils Percent Auto 61.4 % (42.0-72.0); Platelet Count* 301 K/uL (140-440); RDW Coefficient of Variation % 13.4 % (11.5-15.5); White Blood Count* 6.68 K/uL (4.50-11.00)
[2024-07-24 08:42] LABS: Albumin* 4.3 g/dL (3.3-5.0); Chloride* 99 mmol/L (96-114); Sodium* 136 mmol/L (135-149)
[2024-07-24 08:43] LABS: Potassium* 3.5 mmol/L (3.6-5.1)
[2024-07-24 08:45] LABS: Alanine Aminotransferase* 16 U/L (4-35); Alkaline Phosphatase* 67 U/L (40-150); Anion Gap 6 mEq/L (7-15); Aspartate Amino Transferase* 24 U/L (12-35); Bilirubin Total* 0.3 mg/dL (0.1-1.5); Blood Urea Nitrogen* 20 mg/dL (7-30); Carbon Dioxide* 31 mmol/L (20-32); Creatinine* 0.8 mg/dL (0.5-1.5); Est. Creatinine Clearance* 35.49; Estimated Glomerular Filt Rate 74 ml/min; Glucose* 118 mg/dL (60-115); Slide Review Reflex No; Total Protein* 7.7 g/dL (6.0-8.3)
[2024-07-24 08:46] LABS: Calcium* 9.3 mg/dL (8.4-10.6)
[2024-07-24] MEDS: DURVALUMAB 1,500 MG, TUBING PRIMARY 1 EACH, In-line 0.2 micron filter set 1 EACH in 0.9... 280 MG IVPB (10:31)
[2024-07-25 15:20] LABS: Alpha Fetoprotein Tumor Marker 4 ng/mL (0-9)
== END 2024-07-29 23:59 | disposition home or self-care (01) ==
LOC: CCIC 08:00
PROVIDERS: Clinical Nurse Specialist; PCP Physician Assistant; Referring Provider Physician Assistant; Visit Provider Internal Medicine Hematology & Oncology
DX: Z51.12 Encounter for antineoplastic immunotherapy (principal); C22.9 Malignant neoplasm of liver, not specified as primary or secondary; Z85.118 Personal history of other malignant neoplasm of bronchus and lung; E87.6 Hypokalemia; E87.1 Hypo-osmolality and hyponatremia
CPT/HCPCS: 36415; 71260; 74177; 80050; 80053; 80061; 82105; 82306; 84443; 85025; 96413; 99214; G0463; J7050; J9173; Q9967

== ENCOUNTER 2024-09-06 15:36 | Outpatient (CLI) | payer MEDICARE, SELFPAY | END 2024-09-06 15:37 | disposition home or self-care (01) | LOC: NFLDREF 09-17 23:26 | PROVIDERS: PCP Internal Medicine; Referring Provider Internal Medicine; Visit Provider Nurse Practitioner | DX: R30.0 Dysuria (principal) | CPT/HCPCS: 87086 ==

== ENCOUNTER 2024-09-14 07:43 | Outpatient (CLI) | payer MEDICARE, SELFPAY | END 2024-09-14 07:44 | disposition home or self-care (01) | LOC: MRI 07:43 | PROVIDERS: PCP Internal Medicine; Visit Provider Internal Medicine Hematology & Oncology | DX: C22.9 Malignant neoplasm of liver, not specified as primary or secondary (principal); C34.90 Malignant neoplasm of unspecified part of unspecified bronchus or lung; Z51.12 Encounter for antineoplastic immunotherapy; Z85.118 Personal history of other malignant neoplasm of bronchus and lung | CPT/HCPCS: 71260; 74177; 74183; A9575; Q9967 ==

== ENCOUNTER 2024-12-14 14:17 | Outpatient (CLI) | payer MEDICARE, SELFPAY | END 2024-12-14 14:18 | disposition home or self-care (01) | LOC: NFLDREF 12-20 01:45 | PROVIDERS: PCP Internal Medicine; Referring Provider Internal Medicine; Visit Provider Physician Assistant | DX: N39.0 Urinary tract infection, site not specified (principal); B96.20 Unspecified Escherichia coli [E. coli] as the cause of diseases classified elsewhere | CPT/HCPCS: 87086 ==

== ENCOUNTER 2025-02-06 10:00 | Outpatient (RCR) | payer MEDICARE, SELFPAY ==
[2024-08-18 09:25] LABS: Hematocrit 40.1 % (33.0-51.0); Hemoglobin* 13.2 gm/dL (12.0-16.0); Immature Granulocytes Abs Auto 0.01 K/uL (0.00-0.30); Immature Granulocytes Pct Auto 0.1 %; Lymphocytes Absolute Auto 1.63 K/uL (0.90-2.90); Mean Corpuscular HGB Conc 33 gm/dL (32-36); Mean Corpuscular Hemoglobin 31 pg (26-34); Mean Corpuscular Volume 94 fL (80-100); RDW Coefficient of Variation % 13.5 % (11.5-15.5); Red Blood Count 4.26 m/uL (4.00-5.20); White Blood Count* 7.34 K/uL (4.50-11.00)
[2024-08-18 09:30] LABS: Slide Review Reflex No
[2024-08-18 09:38] LABS: Albumin* 4.4 g/dL (3.3-5.0); Chloride* 97 mmol/L (96-114); Sodium* 134 mmol/L (135-149)
[2024-08-18 09:39] LABS: Potassium* 3.4 mmol/L (3.6-5.1)
[2024-08-18 09:41] LABS: Alanine Aminotransferase* 16 U/L (4-35); Alkaline Phosphatase* 61 U/L (40-150); Anion Gap 6 mEq/L (7-15); Aspartate Amino Transferase* 22 U/L (12-35); Bilirubin Total* 0.3 mg/dL (0.1-1.5); Blood Urea Nitrogen* 16 mg/dL (7-30); Carbon Dioxide* 31 mmol/L (20-32); Creatinine* 0.7 mg/dL (0.5-1.5); Estimated Glomerular Filt Rate 87 ml/min; Glucose* 97 mg/dL (60-115); Total Protein* 7.7 g/dL (6.0-8.3)
[2024-08-18 09:42] LABS: Calcium* 9.3 mg/dL (8.4-10.6)
[2024-08-21 08:50] VITALS: BP 97/63; PULSE 67; RESP 16; TEMP 36.3; O2SAT 94
[2024-08-21] MEDS: DURVALUMAB 1,500 MG, TUBING PRIMARY 1 EACH, In-line 0.2 micron filter set 1 EACH in 0.9... 280 MG IVPB (09:22)
[2024-09-14 08:07] LABS: Hematocrit 41.2 % (33.0-51.0); Hemoglobin* 13.4 gm/dL (12.0-16.0); Immature Granulocytes Abs Auto 0.02 K/uL (0.00-0.30); Immature Granulocytes Pct Auto 0.3 %; Lymphocytes Absolute Auto 1.72 K/uL (0.90-2.90); Mean Corpuscular HGB Conc 33 gm/dL (32-36); Mean Corpuscular Hemoglobin 31 pg (26-34); Mean Corpuscular Volume 94 fL (80-100); RDW Coefficient of Variation % 13.2 % (11.5-15.5); Red Blood Count 4.40 m/uL (4.00-5.20); White Blood Count* 6.76 K/uL (4.50-11.00)
[2024-09-14 08:12] LABS: Slide Review Reflex No
[2024-09-14 08:20] LABS: Albumin* 4.3 g/dL (3.3-5.0); Chloride* 99 mmol/L (96-114); Potassium* 3.9 mmol/L (3.6-5.1); Sodium* 136 mmol/L (135-149)
[2024-09-14 08:23] LABS: Alanine Aminotransferase* 16 U/L (4-35); Alkaline Phosphatase* 63 U/L (40-150); Anion Gap 8 mEq/L (7-15); Aspartate Amino Transferase* 23 U/L (12-35); Bilirubin Total* 0.4 mg/dL (0.1-1.5); Blood Urea Nitrogen* 14 mg/dL (7-30); Carbon Dioxide* 29 mmol/L (20-32); Creatinine* 0.7 mg/dL (0.5-1.5); Estimated Glomerular Filt Rate 87 ml/min; Glucose* 108 mg/dL (60-115); Total Protein* 7.9 g/dL (6.0-8.3)
[2024-09-14 08:24] LABS: Calcium* 9.3 mg/dL (8.4-10.6)
[2024-09-18 09:02] VITALS: BP 145/59; PULSE 70; RESP 17; TEMP 35.8; O2SAT 96
[2024-09-18] MEDS: DURVALUMAB 1,500 MG, TUBING PRIMARY 1 EACH, In-line 0.2 micron filter set 1 EACH in 0.9... 280 MG IVPB (09:40)
--- NOTE | 2024-09-18 14:32 | ONC.NURNOTE ---
Patient in clinic today for Durvalumab infusion. Patient asked why she did not have a tumor marker drawn since she had scans and is seeing the MD next week. On chart review MD's note did not specifically state when AFP was due again and there are no future orders for it. RN asked Dr. Sims when she would like it checked again. Per Dr. Sims ok to draw today and then will recheck every 3 months. RN called and spoke with lab who is able to add AFP onto labs that were drawn on 09/14. RN called Madyson and updated her that it was added and her results would be reviewed and her appt with Dr. Sims on 09/25. Patient verbalized understanding.
[2024-10-16 09:29] LABS: Hematocrit 42.1 % (33.0-51.0); Hemoglobin* 13.9 gm/dL (12.0-16.0); Immature Granulocytes Abs Auto 0.02 K/uL (0.00-0.30); Immature Granulocytes Pct Auto 0.3 %; Lymphocytes Absolute Auto 1.55 K/uL (0.90-2.90); Mean Corpuscular HGB Conc 33 gm/dL (32-36); Mean Corpuscular Hemoglobin 31 pg (26-34); Mean Corpuscular Volume 94 fL (80-100); RDW Coefficient of Variation % 13.9 % (11.5-15.5); Red Blood Count 4.47 m/uL (4.00-5.20); White Blood Count* 6.64 K/uL (4.50-11.00)
[2024-10-16 09:37] LABS: Slide Review Reflex No
[2024-10-16 09:45] LABS: Albumin* 4.5 g/dL (3.3-5.0); Chloride* 95 mmol/L (96-114); Potassium* 3.7 mmol/L (3.6-5.1); Sodium* 135 mmol/L (135-149)
[2024-10-16 09:48] LABS: Alanine Aminotransferase* 17 U/L (4-35); Alkaline Phosphatase* 62 U/L (40-150); Anion Gap 10 mEq/L (7-15); Aspartate Amino Transferase* 23 U/L (12-35); Bilirubin Total* 0.4 mg/dL (0.1-1.5); Blood Urea Nitrogen* 19 mg/dL (7-30); Carbon Dioxide* 30 mmol/L (20-32); Creatinine* 0.9 mg/dL (0.5-1.5); Est. Creatinine Clearance* 35.49; Estimated Glomerular Filt Rate 65 ml/min; Glucose* 85 mg/dL (60-115); Total Protein* 8.0 g/dL (6.0-8.3)
[2024-10-16 09:49] LABS: Calcium* 9.4 mg/dL (8.4-10.6)
[2024-10-17] MEDS: DURVALUMAB 1,500 MG, TUBING PRIMARY 1 EACH, In-line 0.2 micron filter set 1 EACH in 0.9... 280 MG IVPB (10:41)
[2024-11-13 09:15] LABS: Hematocrit 42.0 % (33.0-51.0); Hemoglobin* 13.8 gm/dL (12.0-16.0); Immature Granulocytes Abs Auto 0.01 K/uL (0.00-0.30); Immature Granulocytes Pct Auto 0.2 %; Lymphocytes Absolute Auto 1.45 K/uL (0.90-2.90); Mean Corpuscular HGB Conc 33 gm/dL (32-36); Mean Corpuscular Hemoglobin 31 pg (26-34); Mean Corpuscular Volume 95 fL (80-100); RDW Coefficient of Variation % 14.1 % (11.5-15.5); Red Blood Count 4.42 m/uL (4.00-5.20); White Blood Count* 6.17 K/uL (4.50-11.00)
[2024-11-13 09:25] LABS: Albumin* 4.7 g/dL (3.3-5.0); Chloride* 98 mmol/L (96-114); Potassium* 3.4 mmol/L (3.6-5.1); Sodium* 136 mmol/L (135-149)
[2024-11-13 09:28] LABS: Alanine Aminotransferase* 21 U/L (4-35); Alkaline Phosphatase* 56 U/L (40-150); Anion Gap 8 mEq/L (7-15); Aspartate Amino Transferase* 33 U/L (12-35); Bilirubin Total* 0.5 mg/dL (0.1-1.5); Blood Urea Nitrogen* 18 mg/dL (7-30); Calcium* 9.4 mg/dL (8.4-10.6); Carbon Dioxide* 30 mmol/L (20-32); Creatinine* 0.8 mg/dL (0.5-1.5); Est. Creatinine Clearance* 35.49; Estimated Glomerular Filt Rate 74 ml/min; Glucose* 98 mg/dL (60-115); Total Protein* 8.1 g/dL (6.0-8.3)
[2024-11-13 09:42] LABS: Slide Review Reflex No
[2024-11-14] MEDS: SODIUM CHLORIDE 0.9 % (FLUSH) 10 ML SYRINGE IVF (10:48)
[2024-11-14] MEDS: DURVALUMAB 1,500 MG, TUBING PRIMARY 1 EACH, In-line 0.2 micron filter set 1 EACH in 0.9... 280 MG IVPB (10:50)
[2024-12-11 08:52] LABS: Hematocrit 42.5 % (33.0-51.0); Hemoglobin* 13.9 gm/dL (12.0-16.0); Immature Granulocytes Abs Auto 0.02 K/uL (0.00-0.30); Immature Granulocytes Pct Auto 0.3 %; Lymphocytes Absolute Auto 1.45 K/uL (0.90-2.90); Mean Corpuscular HGB Conc 33 gm/dL (32-36); Mean Corpuscular Hemoglobin 31 pg (26-34); Mean Corpuscular Volume 94 fL (80-100); RDW Coefficient of Variation % 13.6 % (11.5-15.5); Red Blood Count 4.50 m/uL (4.00-5.20); White Blood Count* 6.09 K/uL (4.50-11.00)
[2024-12-11 08:55] LABS: Slide Review Reflex No
[2024-12-11 09:07] LABS: Albumin* 4.4 g/dL (3.3-5.0); Chloride* 97 mmol/L (96-114)
[2024-12-11 09:08] LABS: Potassium* 3.6 mmol/L (3.6-5.1); Sodium* 136 mmol/L (135-149)
[2024-12-11 09:10] LABS: Alanine Aminotransferase* 18 U/L (4-35); Alkaline Phosphatase* 63 U/L (40-150); Anion Gap 6 mEq/L (7-15); Aspartate Amino Transferase* 29 U/L (12-35); Bilirubin Total* 0.3 mg/dL (0.1-1.5); Blood Urea Nitrogen* 18 mg/dL (7-30); Calcium* 9.7 mg/dL (8.4-10.6); Carbon Dioxide* 33 mmol/L (20-32); Creatinine* 0.8 mg/dL (0.5-1.5); Est. Creatinine Clearance* 35.49; Estimated Glomerular Filt Rate 74 ml/min; Glucose* 110 mg/dL (60-115); Total Protein* 7.9 g/dL (6.0-8.3)
[2024-12-12 08:08] VITALS: BP 136/78; PULSE 70; RESP 18; TEMP 35.6; O2SAT 96
[2024-12-12] MEDS: SODIUM CHLORIDE 0.9 % (FLUSH) 10 ML SYRINGE IVF (08:45)
[2024-12-12] MEDS: DURVALUMAB 1,500 MG, TUBING PRIMARY 1 EACH, In-line 0.2 micron filter set 1 EACH in 0.9... 280 MG IVPB (08:45)
[2025-01-05 08:40] LABS: Hematocrit 41.8 % (33.0-51.0); Hemoglobin* 13.6 gm/dL (12.0-16.0); Immature Granulocytes Abs Auto 0.01 K/uL (0.00-0.30); Immature Granulocytes Pct Auto 0.2 %; Lymphocytes Absolute Auto 1.51 K/uL (0.90-2.90); Mean Corpuscular HGB Conc 33 gm/dL (32-36); Mean Corpuscular Hemoglobin 31 pg (26-34); Mean Corpuscular Volume 95 fL (80-100); RDW Coefficient of Variation % 13.6 % (11.5-15.5); Red Blood Count 4.41 m/uL (4.00-5.20); White Blood Count* 6.46 K/uL (4.50-11.00)
[2025-01-05 08:52] LABS: Slide Review Reflex No
[2025-01-05 08:55] LABS: Chloride* 97 mmol/L (96-114)
[2025-01-05 08:56] LABS: Albumin* 4.5 g/dL (3.3-5.0); Potassium* 3.5 mmol/L (3.6-5.1); Sodium* 136 mmol/L (135-149)
[2025-01-05 08:58] LABS: Alanine Aminotransferase* 20 U/L (4-35); Anion Gap 8 mEq/L (7-15); Aspartate Amino Transferase* 30 U/L (12-35); Blood Urea Nitrogen* 20 mg/dL (7-30); Carbon Dioxide* 31 mmol/L (20-32); Creatinine* 0.8 mg/dL (0.5-1.5); Est. Creatinine Clearance* 35.49; Estimated Glomerular Filt Rate 74 ml/min
[2025-01-05 08:59] LABS: Alkaline Phosphatase* 60 U/L (40-150); Bilirubin Total* 0.5 mg/dL (0.1-1.5); Calcium* 9.6 mg/dL (8.4-10.6); Glucose* 99 mg/dL (60-115); Total Protein* 8.0 g/dL (6.0-8.3)
[2025-01-09] MEDS: DURVALUMAB 1,500 MG, TUBING PRIMARY 1 EACH, In-line 0.2 micron filter set 1 EACH in 0.9... 280 MG IVPB (12:36)
[2025-01-09] MEDS: SODIUM CHLORIDE 0.9 % (FLUSH) 10 ML SYRINGE IVF ×2 (12:36→13:38)
[2025-02-02 09:27] LABS: Hematocrit 41.2 % (33.0-51.0); Hemoglobin* 13.5 gm/dL (12.0-16.0); Immature Granulocytes Abs Auto 0.01 K/uL (0.00-0.30); Immature Granulocytes Pct Auto 0.1 %; Mean Corpuscular HGB Conc 33 gm/dL (32-36); Mean Corpuscular Hemoglobin 31 pg (26-34); Mean Corpuscular Volume 93 fL (80-100); RDW Coefficient of Variation % 13.5 % (11.5-15.5); Red Blood Count 4.41 m/uL (4.00-5.20); White Blood Count* 7.30 K/uL (4.50-11.00)
[2025-02-02 09:41] LABS: Lymphocytes Absolute Auto 1.40 K/uL (0.90-2.90); Slide Review Reflex No
[2025-02-02 09:55] LABS: Albumin* 4.6 g/dL (3.3-5.0); Chloride* 95 mmol/L (96-114); Potassium* 3.7 mmol/L (3.6-5.1); Sodium* 134 mmol/L (135-149)
[2025-02-02 09:58] LABS: Alanine Aminotransferase* 20 U/L (4-35); Alkaline Phosphatase* 63 U/L (40-150); Anion Gap 9 mEq/L (7-15); Aspartate Amino Transferase* 32 U/L (12-35); Bilirubin Total* 0.5 mg/dL (0.1-1.5); Blood Urea Nitrogen* 21 mg/dL (7-30); Calcium* 10.1 mg/dL (8.4-10.6); Carbon Dioxide* 30 mmol/L (20-32); Creatinine* 0.8 mg/dL (0.5-1.5); Est. Creatinine Clearance* 35.49; Estimated Glomerular Filt Rate 74 ml/min; Glucose* 112 mg/dL (60-115); Total Protein* 8.2 g/dL (6.0-8.3)
[2025-02-06 10:34] LABS: Protein Creatinine Ratio Urine 0.04 (0-0.19)
[2025-02-06] MEDS: BEVACIZUMAB BVZR IVPB (11:39)
[2025-02-06] MEDS: TUBING SECONDARY IVPB (11:39)
[2025-02-06] MEDS: [UNRECOGNIZED DRUG - OTHER] IVPB (11:39)
[2025-02-06] MEDS: DURVALUMAB 1,500 MG, TUBING PRIMARY 1 EACH, In-line 0.2 micron filter set 1 EACH in 0.9... 280 MG IVPB (13:30)
== END 2025-02-14 23:59 | disposition home or self-care (01) ==
LOC: CCIC 10:00
PROVIDERS: Clinical Nurse Specialist; PCP Internal Medicine; Referring Provider Internal Medicine; Visit Provider Internal Medicine Hematology & Oncology
DX: Z51.12 Encounter for antineoplastic immunotherapy (principal); C22.9 Malignant neoplasm of liver, not specified as primary or secondary; E87.6 Hypokalemia; E87.1 Hypo-osmolality and hyponatremia; Z79.899 Other long term (current) drug therapy; Z85.118 Personal history of other malignant neoplasm of bronchus and lung; Z87.891 Personal history of nicotine dependence
CPT/HCPCS: 36415; 71260; 74177; 74183; 80053; 82105; 82570; 84156; 84443; 85025; 96413; 96415; 96417; 99214; 99215; G0463; A9575; J7050; J9173; Q5118; Q9967

== ENCOUNTER 2025-05-03 13:27 | Outpatient (CLI) | payer MEDICARE, SELFPAY ==
--- NOTE | 2025-05-03 14:00 | CRLHL7_ITS ---
For Patients: As a result of the Century Cures Act, medical imaging exams and procedure reports are released immediately into your electronic medical record. You may view this report before your referring provider. If you have questions, please contact your health care provider. Indication: Malignant neoplasm of liver Technique: CT Chest W/ ISOVUE 370 intravenous contrast Please note that all CT scans at this facility use dose modulation, iterative reconstruction, and/or weight-based dosing when appropriate to reduce radiation dose to as low as reasonably achievable. Comparison: 02/10/2025 Findings: In the chest, visualized thyroid is within normal limits. No intrathoracic adenopathy. No pleural or pericardial effusion. Atherosclerotic changes with tortuosity of the aorta. Chronic density adjacent to the right proximal humerus at the right shoulder. Similar nodular densities within the anterior left lung measuring up to 9 millimeters. Stable linear subsegmental scarring in the left lower lobe and stable scarring with ground-glass opacity in the left upper lobe as well as the right upper lobe. Also stable faint nodular densities within the anterior right lung. Stable calcified densities within the right lower lobe and within the anterolateral right lung. No fracture. Degenerative changes. In the abdomen, stable hypodense lesion in the liver measuring 3.3 cm. Spleen is normal. No adrenal nodule. Bilateral renal cysts. No hydronephrosis. Pancreas is normal. No biliary obstruction. Rectus diastasis with ventral hernia containing fat unchanged. Atherosclerotic disease. No hiatal hernia. No retroperitoneal or mesenteric adenopathy. Similar if not slightly decreased left anterior peritoneal nodule measuring 1.4 cm, 7/55. In the pelvis, the bladder is incompletely distended. Sigmoid diverticulosis. No diverticulitis. No bowel obstruction or free air. No free fluid or abscess. Normal appendix. Degenerative anterolisthesis L3 on L4 and L4 on L5. No vertebral body compression fracture. No pelvic or inguinal adenopathy. Impression: Similar or slightly decreased left anterior omental soft tissue nodule. Stable bilateral pulmonary nodules. Stable hypodense hepatic mass. Please note that all CT scans at this facility use dose modulation, iterative reconstruction, and/or weight-based dosing when appropriate to reduce radiation dose to as low as reasonably achievable. Dictated by Alexander Cuenca MD @ 05/03/2025 3:33:08 PM (Electronically Signed)
--- NOTE | 2025-05-03 14:30 | CRLHL7_ITS ---
For Patients: As a result of the Century Cures Act, medical imaging exams and procedure reports are released immediately into your electronic medical record. You may view this report before your referring provider. If you have questions, please contact your health care provider. INDICATION: History of lung and liver cancer. Comparison : Abdominal MRIs dated 02 February 2025 and 14 September 2024. Technique : Abdominal MRI with T1 in and out of phase, T2, diffusion weighted, and progressively delayed post-contrast images. Intravenous gadolinium administered. Findings : No fatty infiltration of the liver. Resection of the lower portion of the right lobe of the liver. 3.0 cm lesion in the medial aspect of segment 7 of the liver contains hemorrhagic debris and shows trace peripheral enhancement is unchanged. No focal abnormalities identified in the visualized portions of the liver, spleen, pancreas, and adrenal glands. A few bilateral renal cysts with the largest located in the interpolar region of the left kidney measuring 2.2 cm. The kidneys are otherwise unremarkable. No hydronephrosis. 1.4 x 1.0 cm left upper anterior peritoneal nodule is unchanged. Midline anterior abdominal wall hernia contains fat. No adenopathy. Impression : 1. 3.0 cm lesion in the medial aspect of segment 7 of the liver may represent an ablation defect and is unchanged. 2. Resection of the lower portion of the right lobe of liver. 3. Left upper anterior peritoneal nodule is unchanged. Dictated by Sridhar Leon MD @ 05/05/2025 3:10:47 PM (Electronically Signed)
== END 2025-05-03 13:28 | disposition home or self-care (01) ==
LOC: CT 13:28
PROVIDERS: PCP Internal Medicine; Visit Provider Internal Medicine Hematology & Oncology
DX: C22.9 Malignant neoplasm of liver, not specified as primary or secondary (principal); R91.8 Other nonspecific abnormal finding of lung field
CPT/HCPCS: 71260; 74177; 74183; A9575; Q9967

== ENCOUNTER 2025-08-06 08:02 | Outpatient (CLI) | payer MEDICARE, SELFPAY ==
--- NOTE | 2025-08-06 09:00 | CRLHL7_ITS ---
For Patients: As a result of the Century Cures Act, medical imaging exams and procedure reports are released immediately into your electronic medical record. You may view this report before your referring provider. If you have questions, please contact your health care provider. INDICATION: Follow-up liver cancer COMPARISON: Same day MR abdomen. Prior CT chest abdomen pelvis 05/03/2025, 02/02/2025, 09/14/2024, and 05/18/2024. MR abdomen 05/24/2024, 09/14/2024, 01/23/2025, 05/03/2025 TECHNIQUE: CT chest, abdomen, and pelvis with contrast. Multiplanar axial, coronal, and sagittal reformats are included. MIP images to improve detection of pulmonary nodules are included. Intravenous contrast: 77 mL Isovue 370. FINDINGS: CHEST Airway: Normal tracheobronchial tree. Lungs: Right upper lobe anterior subpleural nodules have increased. The largest now measures 6 mm. The anterior left upper lobe subpleural nodules are about the same with the largest measuring 9 mm. There are some areas of distortion and scarring in both lungs that are about the same. No consolidations. Pleura: No pleural effusion. Right lower lobe lesion that appears to be a pleural-based mass measures 1.3 x 0.8 cm. Most recently measured about 1.2 x 0.7 cm. Measured 0.5 x 0.4 cm on 05/18/2024. No pneumothorax. Lymph nodes: No thoracic adenopathy. Mediastinum: No pneumomediastinum. No mass. Heart and great vessels: No pericardial effusion. Normal cardiac chamber size. Scattered atherosclerotic plaques. No aortic aneurysm. Normal caliber main pulmonary artery. Chest wall: Normal. No masses. ABDOMEN AND PELVIS Liver: Presumed ablation defect in segment VII measures 3.0 x 2.7 cm. No substantial change since 05/18/2024. Right anterolateral subcapsular resection site with extensive surgical clips is about the same. There are not any new liver lesions. Gallbladder and bile ducts: Cholecystectomy. Similar mild extrahepatic biliary ductal dilatation. Pancreas: Normal. Spleen: Normal. Adrenal glands: Normal. Kidneys: Normal parenchyma. There are a few bilateral renal cysts. No calculi. No urinary tract dilation. Urinary bladder: Normal. Pelvis: Presumed hysterectomy. No pelvic cyst or mass seen. Vessels: Heavy atherosclerosis. No aortic aneurysm. Bowel: No dilated or inflamed bowel. Normal appendix. Heavy distal colonic diverticulosis without diverticulitis. Moderate to large stool burden. Lymph nodes: Left periaortic lymph node has a short axis of 9 millimeters. No change compared to several recent prior exams. No new or enlarging adenopathy. Peritoneum: No ascites. No free air. There is a 1.2 x 1.5 soft tissue nodule in the left upper quadrant on series 7, image 40. Not significantly changed since the most recent prior exam. Measured 1.1 x 0.7 cm on 05/18/2024. Abdominal wall: Large epigastric hernia contains mostly fat. Diastasis recti. Bilateral rectus atrophy. Bilateral fat containing inguinal hernias. BONES: No fractures. No focal bone lesions. IMPRESSION: 1. Right upper lobe anterior subpleural nodules have increased in size compared to prior exams and measure up to 0.6 cm. 2. Slow progressive enlargement of a possibly pleural-based nodule in the right posterolateral chest, now measures 1.3 x 0.8 cm. 3. Slowly growing soft tissue nodule in the left upper quadrant. Please note that all CT scans at this facility use dose modulation, iterative reconstruction, and/or weight-based dosing when appropriate to reduce radiation dose to as low as reasonably achievable. Dictated by Emeli Hardy MD @ 08/10/2025 7:32:58 AM (Electronically Signed)
--- NOTE | 2025-08-06 09:15 | CRLHL7_ITS ---
For Patients: As a result of the Century Cures Act, medical imaging exams and procedure reports are released immediately into your electronic medical record. You may view this report before your referring provider. If you have questions, please contact your health care provider. INDICATION: Malignant neoplasm of liver TECHNIQUE: 1.5 T MRI of the abdomen performed with pre and postcontrast T1 weighted imaging; T2 weighted imaging; in and out of phase imaging; diffusion weighted imaging. 14 mL Dotarem IV COMPARISON: Same day CT chest abdomen and pelvis, MR abdomen 05/03/2025 FINDINGS: Lungs: The lung bases are clear. No pleural or pericardial effusion. Liver: Postsurgical changes of the right hepatic lobe. Post-contrast sequences are slightly motion degraded. Decreased hypoenhancing region in the medial aspect of segment 7 measuring 2 x 3 cm (16/28), previously up to 3.3 cm. No definite suspicious enhancement. No new hepatic lesions Biliary tree and gallbladder: Prior cholecystectomy. Similar mild intra and extrahepatic biliary dilation, the common bile duct measures 9 mm, likely post cholecystectomy reservoir effect Spleen: Unremarkable Pancreas: Normal pancreatic parenchyma. No pancreatic masses. No pancreatic duct dilation. 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 Adrenal glands: Unremarkable. Kidneys and ureters: No renal masses or hydronephrosis. Similar bilateral renal cysts GI tract: No evidence of obstruction or inflammation. Vasculature: The IVC and aorta are patent. No abdominal aortic aneurysm. Lymph nodes: Stable borderline enlarged left retroperitoneal lymph node measuring 0.9 cm (57). Abdominal wall: Similar diastasis rectus and large left ventral hernia Peritoneum: Stable left anterior peritoneal nodule measuring 1.3 x 1.7 cm (16/43), previously 1.4 x 1.6 cm. Additional apparent nodularity in the left upper quadrant (04/09), is favored to represent volume averaging from adjacent colonic diverticulosis. Bones: Degenerative change of the imaged spine. IMPRESSION: 1. Decreased hepatic segment 7 region of hypoenhancement measuring up to 3 cm, previously 3.3 cm. This may represent an ablation defect, please correlate with procedural history. No suspicious enhancement. No new hepatic lesions. 2. Stable left anterior peritoneal nodule and borderline enlarged left retroperitoneal lymph node Dictated by Antonette Ingram MD @ 08/08/2025 1:00:31 PM (Electronically Signed)
== END 2025-08-06 08:03 | disposition home or self-care (01) ==
LOC: CT 08:03
PROVIDERS: PCP Internal Medicine; Visit Provider Clinical Nurse Specialist
DX: C22.9 Malignant neoplasm of liver, not specified as primary or secondary (principal); C34.11 Malignant neoplasm of upper lobe, right bronchus or lung; R59.0 Localized enlarged lymph nodes; R91.8 Other nonspecific abnormal finding of lung field
CPT/HCPCS: 71260; 74177; 74183; A9575; Q9967

== ENCOUNTER 2025-08-09 07:57 | Emergency (ER) | payer MEDICARE, SELFPAY ==
--- OUTSIDE RECORDS SUMMARY | 2025-08-09 07:59 | XMS_ITS | Clinical Summary ---
Author Organization [facility] Address [address] [place] [address] Care Team Providers Care Escrow Agent Name Role Phone Carlita Ritchie Alberta Unavailable [phone] Marc Villatoro MD Unavailable [phone] Yo Koenig MD Unavailable [phone] December, Vaishali Rivera RN, BSN Unavailable Unavailable Emilia Reveles RN, BSN Unavailable Unavailab Zeferino Lozada MD Unavailable [phone] Pcp, No Primary Care Provider Unavailabl e Allergies Active AllergyReactionsCriticalityNoted DateCommentsErythromycinGI Upset 11/30/20070660YrfiifgntLpek06/16/2008 feels really out of it Tolerates Tramadol Sulfa (Sulfonamide Antibiotics)Shortness Of Tqtnlc3711/30/2007TetracyclineDiarrhea 11/30/2007 Medications MedicationSigDispense QuantityRefillsLast FilledStart DateEnd DateStatus calcium carbonate (TUMS) 200 mg calcium (500 mg) chewable tablet Chew 500 mg by mouth 4 times daily if needed for Heartburn.Active famotidine (Pepcid AC) 20 mg tablet Take 20 mg by mouth 2 times daily.Active ntdhqxkdaryro-kbfaoiqv-nuuasm (Multivitamin 50 Plus) tab tablet Take 1 Tablet by mouth once daily.Active cholecalciferol (VITAMIN D3) 1,000 unit tablet Take 1,000 units by mouth once daily.Active Cranberry 400 mg capsule Take 400 mg by mouth 2 times daily.Active Lactobacillus acidophilus (PROBIOTIC ORAL) Take 1 Capsule by mouth 2 times daily.Active loratadine (CLARITIN) 10 mg tablet Take 10 mg by mouth once daily if needed for Allergy Symptoms.Active docusate (COLACE) 100 mg capsule Indications:HCC (hepatocellular carcinoma) (HC)Take 1 Capsule (100 mg) by mouth 2 times daily. Decrease tablets, frequency or stop if loose stools 20 Capsule 02/28/2021 4:01 PM CDT02/28/2021ctive acetaminophen (TYLENOL) 325 mg tablet Indications:HCC (hepatocellular carcinoma) (HC)Take 2 Tablets (650 mg) by mouth every 6 hours if needed for Pain. Max acetaminophen dose: 4000mg in 24 hrs. 50 Tablet 03/02/2021ctive estradioL (ESTRACE) 0.01% (0.1 mg/g) vaginal cream Indications:Vaginal atrophyAPPLY INTRAVAGINALLY 1 TO 3 TIMES WEEKLY 42.5 g ctive hydroCHLOROthiazide (HCTZ) 25 mg tablet Indications:Essential hypertensionTAKE 1 TABLET DAILY 90 Tablet 03/18/2023ctive atenoloL (TENORMIN) 50 mg tablet Indications:Essential hypertensionTAKE 1 TABLET DAILY 90 Tablet 05/03/2023ctive amLODIPine (NORVASC) 5 mg tablet Indications:Essential hypertensionTAKE 1 TABLET DAILY 90 Tablet ctive azelastine 137 mcg/actuation (ASTELIN) nasal spray Indications:Allergic rhinitis, unspecified seasonality, unspecified trigger Inhale 1 Hettinger into affected nostril(s) 2 times daily if needed for Rhinitis. 30 mL 03/24/2024ctive DURVALUMAB IV Inject intravenous.Active Active Problems ProblemNoted DateDiagnosed DateEmphysema of left lung3Depression, knkjejevv47/16/2023Primary cancer of right upper lobe of lung01/31/2021/P lobectomy of lung01/31/2021 Overview (01/31/2021): S/p right thoracotomy, right upper lobectomy, thoracic lymphadenectomy performed by Dr. Dobson 01/31/2021 Adenocarcinoma, lung, right01/29/2021HCC (hepatocellular carcinoma)12/27/2020 Cancer Staging: Clinical stage from 12/27/2020:Stage IB(cT1b, cN0, cM0) - Signed by Bryan Wilson MD on 12/27/2020 Pathologic stage from 02/27/2021:Stage Unknown(pT4, pNX, cM0) - Signed by Brenda Land PA on 03/17/2021 Osteopenia of multiple sites02/06/2018 Overview (02/06/2018): 2008 normal. 01/2018 osteopenia, repeat 3-5 years Arthritis of right knee10/14/2016 Overview (04/30/2017): Sep 2016: cortisone injection to right knee for osteoarthritis. Good benefit for approximately 6 months. Apr 2017: cortisone injection to right knee, right knee is 45-50% better at 10 days. Chronic pain of left knee02/07/2015 Overview (04/30/2017): 2008 left knee injection. January [...] 80-85% better at 10 days. Non-celiac gluten mahuugeueii40/27/2014CP (advance care planning)12/23/2011 Overview (12/23/2011): Has done plan at home. Will bring in. Alejandra Hsu M.D. 12/23/2011 9:13 AM Cystocele, dhjfmsp2612/17/2010 Overview (12/17/2010): Uses pessary Nipple axsnacsbph56/27/2010Sensorineural hearing loss, abmogpxns60/15/2010 Vaginitis and vulvovaginitis, rsttpizorsh20/04/2009Other and unspecified hyperlipidemiaAllergic rhinitis, cause unspecifiedUnspecified essential hypertension Resolved Problems ProblemNoted DateDiagnosed DateResolved DateRoutine general medical examination at a health care oxykrqom20 Overview (12/23/2011): dexa normal 2008. No need to repeat Sebaceous cystKnee paincute sinusitis, lojwvmlhlwt70Unspecified asthma(493.90)02/22/2009 Immunizations ImmunizationAdministration DatesNext DueCOVID-19 vaccine (Moderna 100mcg/0.5mL) PF, MDV10/19/2020,09/21/2020HepA-HepB (Twinrix)07/01/2012,01/28/2012,12/23/2011 Influenza A (H1N1), Mesffyikllh92/18/2009Influenza A (H1N1), Inactivated (Age >=3 Years)08/02/2009Influenza RIV4 (Age 18+ Years) PRESERV FREE05/23/2020, 06/09/2019Influenza, High-dose Cfqmtbmckyi15/25/2019,04/22/2018,05/06/2017 Influenza, High-dose Quadrivalent Hdbxkrzijyn52/27/2022,05/23/2021Influenza, IIV3 (Age >=3 years)05/12/2010,04/19/2009,05/30/2008,06/15/2007,06/11/2005, 06/11/2004,06/19/2003Influenza, YYI179/Influenza, Inactivated IIV3 (Age 65+ Years) Preserv Free05/16/2017Pneumococcal Poly,23-Valent (Pneumovax) 12/10/2009,06/19/2003Pneumococcal conj 13-Valent (Prevnar 13)01/11/2015Tdap 02/04/2017,11/15/2006Zoster (Zostavax-ZVL, live)02/28/2015 Family History Medical HistoryRelationNameCommentsStrokeBrotherCancerFatherlungCancer-breast MotherStrokeOther 1cousins w factor v leiden- patient tested negative Cancer-breastOther 2auntStrokePaternal Grandmotherdied of cva age 55 Cancer-breastSisterskin cancerAnesthesia Malignant HyperthermiaNo Family History Cancer-colonNo Family HistoryCancer-ovarianNo Family HistoryRelationNameStatus CommentsBrotherFatherDeceased (Age 61)lung cancerMotherDeceased (Age 87)old age Other 1Other 2auntOtherPaternal GrandmotherSister Social History Tobacco UseTypesPacks/DayYears UsedDateSmoking Tobacco: FormerCigarettes0.818 Smokeless Tobacco: Never Tobacco Cessation:Counseling Given: No Comments:Quit 35 years ago Alcohol UseStandard Drinks/WeekCommentsNot Currently1 (1 standard drink = 0.6 oz pure alcohol)1 or 2 times per weekPHQ-2AnswerDate RecordedPHQ-2 TOTAL SCORE0 03/31/2022ocial ConnectionsAnswerDate RecordedDo you often feel lonely or isolated from those around you?Financial Resource StrainAnswerDate RecordedDifficulty of Paying Living Uyffnryj784/08/2025Difficulty of Paying Living ExpensesNot on file03/23/2025Food InsecurityAnswerDate RecordedDo you worry your food will run out before you are able to buy more? Transportation NeedsAnswerDate RecordedDoes lack of transportation keep you from medical appointments?Does lack of transportation keep you from work, meetings or getting things that you need?Housing StabilityAnswerDate RecordedWhat is your housing situation today?UtilitiesAnswerDate RecordedDo you have trouble paying for utilities (for example, heat, electricity, water, phone)?CommentsNoSex and Gender InformationValueDate RecordedSex Assigned at BirthNot on fileLegal SexFemale 08/29/2012 6:18 AM CSTGender IdentityNot on fileSexual OrientationNot on file OccupationIndustryJob Start DateJob End DateelectricianNot on fileNot on fileNot on file Obstetrics History GravidaParaTermPretermABIABSABEctopicMultipleLivingLive [id number] OutcomeGATotal LaborLabor/2nd/1ehBnxbflKycBcefRzipRATNfyO1Y7NapjZzenGuuhJjq DeceasedTermVagLivingPretermVagLiving Last Filed Vital Signs Vital SignReadingTime TakenCommentsBlood Iukvmqin510/7308 2:00 PM CDT Iorrk0955/08/2025 2:00 PM KKFAmwsyzwmgpe14.7 ??C (98 ??F)09/09/2023 10:15 AM MECHANICAL ENGINEERING SPECIALIST Respiratory Etoi429708/17/2021 12:30 PM CDTOxygen Iumqfsfrjx09%03/23/2025 2:00 PM CDTInhaled Oxygen Concentration--Ezcwlw55.8 kg (160 lb 8 oz)03/23/2025 2:00 PM VCDFqxqor572.3 cm (5' 3.9)12/20/2024 9:16 AM CDTBody Mass Index27.64012/20/2024 9:16 AM CDT Plan of Treatment Health MaintenanceDue DateLast DoneCommentsZoster (shingles) series for age 50+ (1 of 2)RSV vaccine for adults or (1 - 1-dose 75+ series)02/15/2019Depression screening for age 12+, 10/01/2021, 03/27/2020, Additional history existsMedicare Wellness for age 65+ , 03/27/2020, 03/17/2019, Additional history existsCOVID-19 vaccine series ( season)/, 02/24/2024, 05/12/2022, Additional history existsInfluenza Vaccine (#1)/03/2020, 06/09/2019, 06/09/2019, Additional history existsBMI (ht and wt on same day) for age 18+ , 12/10/2022, 06/16/2022, Additional history existsTetanus usooqsw75/, 04/02/2007Hepatitis B series for 19+Completed 07/01/2012, 01/28/2012, 12/23/2011Pneumococcal series for age 50+Completed 01/11/2015, 12/10/2009, 06/19/2003DEXA/DXA scan for age 65+Icyzhhnnu15/19/2018, 03/26/2009 Procedures Procedure NamePriorityDate/TimeAssociated DiagnosisCommentsXR DXA BONE DENSITY 2 SITES IWXJMOllcojs13/19/2018 2:30 PM CDT Disorder of cartilage Osteoporosis screening from Last 3 Months or Most Recently Relevant to Health Maintenance Results * (ABNORMAL) XR DXA BONE DENSITY 2 SITES AXIAL (02/01/2018 2:30 PM CDT) Anatomical RegionLateralityModalitySpine, HIPS, HIPL, HIPROtherSpecimen (Source)Anatomical Location / LateralityCollection Method / VolumeCollection TimeReceived Time Narrative 02/04/2018 4:39 PM CDT Please see scanned document for results of this study. Authorizing ProviderResult TypeResult StatusHeather Yesenia Renteria DODEXAFinal Result from Last 3 Months or Most Recently Relevant to Health Maintenance Insurance Advance Directives TypeDate RecordedPatient RepresentativeExplanationHealthcare Directive02/04/2012 1:23 PMHEALTH CARE DIRECTIVE, [facility], 09/30/2007 * Full Code (Latest Code Status on File) Date ActivatedDate InactivatedComments02/27/2021 8:41 AM03/02/2021 7:24 PMQuestion AnswerCommentsCode Status Discussion:* Not Discussed * Full Code Date ActivatedDate InactivatedComments01/31/2021 6:11 AM02/02/2021 2:41 PMQuestion AnswerCommentsCode Status Discussion:* Not Discussed * Full Code Date ActivatedDate InactivatedComments01/06/2021 9:05 AM01/06/2021 2:49 PMQuestion AnswerCommentsCode Status Discussion:* Per Existing Order Care Teams Team MemberRelationshipSpecialtyStart DateEnd Date Pcp, No [address] [facility] [address] [place] [address] PCP - General05/04/23 Carlita Ritchie AuD Audiology1 Marc Villatoro MD Allergy and Immunology01/04/13 Yo Koenig MD Surgery - Otolaryngology01/04/13December, Vaishali Rivera, RN, BSN Cancer Nurse CoordinatorOncology12/13/20 Emilai Reveles, RN, BSN Nurse NavigatorRegistered Nurse01/20/21 Zeferino Dobson MD [address] [facility] [address] [place] [address] Consulting PhysicianSurgery - Cardiothoracic01/24/21
--- OUTSIDE RECORDS SUMMARY | 2025-08-09 07:59 | XMS_ITS | Clinical Summary ---
Author Organization [facility] Address [address] [place] [address] Care Team Providers Care Information Technology Security Analyst Name Role Phone Elsewhere, Pcp Primary Care Provider Unavailabl e Source Comments Patient records contain information from all sites at [facility]. For routine questions regarding patient records, call [phone] during business hours, M-F 8:00 AM - 5:00 PM Central Time. Record requests for emergency care only can be directed to [phone] at any time.[facility] Allergies Active AllergyReactionsCriticalityNoted DateCommentsErythromycinGI intolerance 11/30/2007NickelOther (see comments)03/16/20238690IcjqatifaAxmo65/16/2008 feels really out of it Tolerates Tramadol Sulfa (Sulfonamide Antibiotics)Shortness of breath (Reselect Reaction)11/30/2007 DlxnfyvdirrmYlpgrubz76/16/2008 Medications MedicationSigDispense QuantityRefillsLast FilledStart DateEnd DateStatus dxftufmmvqot-tmioqokz-doangh (Multivitamin 50 Plus) tablet Take 1 tablet by mouth daily.Active loratadine (CLARITIN) 10 mg tablet Take 10 mg by mouth at bedtime as needed.Active hydroCHLOROthiazide (HYDRODIURIL) 25 mg tablet 25 mg daily.09/18/2022ctive famotidine (PEPCID) 20 mg tablet Take 20 mg by mouth.Active estradioL (ESTRACE) 0.1 mg/g (0.01%) vaginal cream 09/27/2022ctive docusate sodium (COLACE) 100 mg capsule Take 100 mg by mouth.02/28/2021ctive cranberry 400 mg capsule Take 400 mg by mouth.Active cholecalciferol, vitamin D3, 25 mcg (1,000 Unit) tablet Take 1,000 Units by mouth.Active calcium carbonate (TUMS) 500 mg (200 mg calcium) chewable tablet Chew 500 mg 4 (four) times a day as needed.Active azelastine (ASTELIN) 137 mcg/spray (0.1 %) nasal spray Inhale 1 Sisters into affected nostril(s) 2 times daily if needed for Rhinitis. 09/20/2022ctive atenoloL (TENORMIN) 50 mg tablet 11/03/2022ctive amLODIPine (NORVASC) 5 mg tablet 11/16/2022ctive acetaminophen (TYLENOL) 325 mg tablet Take 650 mg by mouth every 6 (six) hours as needed.03/02/2021ctive Lactobacillus acidophilus 1 billion cell capsule Take 1 capsule by mouth 2 (two) times a day.Active potassium chloride (K-TAB) 20 mEq CR tablet 20 mEq daily.03/18/2023ctive Active Problems ProblemNoted DateDiagnosed DateSecondary Malignant Neoplasm Soft Tissue 02/19/2025Secondary Malignant Neoplasm Lymph Node02/15/2025Hyperlipidemia 11/27/2022Hypertension Essential Vqruhqa9011/27/2022Major Depressive Disorder, Recurrent, Qplojvmwhlh41/16/2622Slwtflibc30/16/2023cquired Absence Of Lung (Part Of)01/31/2021 Overview (11/27/2022): S/p right thoracotomy, right upper lobectomy, thoracic lymphadenectomy performed by Dr. Dobson 01/31/2021 Malignant Neoplasm Of Unspecified Part Of Right Bronchus Or Lung01/29/2021 Cancer Staging: Pathologic stage from 01/31/2021:Stage IA3(pT1c, pN0, cM0) - Signed by Janice Sanchez M.S.N., R.N., C.M.S.R.N. on 12/03/2022 Malignant Neoplasm Of Liver Acsaljbizzizfz37/14/2021 Cancer Staging: Pathologic stage from 02/27/2021:Stage IIIB(pT4, pN0, cM0) - Unsigned Other Specified Disorders Of Bone Density And Structure Multiple Sites02/06/2018 12/07/2022 Overview (12/07/2022): 2009 normal. 01/2018 osteopenia, repeat 3-5 years Cystocele Wsvyxmn43/04/ Overview (12/07/2022): Uses pessary Acute Xgydkpeuz04 Family History Medical HistoryRelationNameCommentsLung cancerFatherjohn millerBreast cancer (in one breast)Father's Sister?millerBreast cancer (in one breast)Mothergertrude millerBreast cancer (in one breast)Sister 1rose meyerDepressionSister 1rose meyerParkinson's diseaseSister 1rose meyerSkin cancerSister 2mary dvorakRelation NameStatusCommentsFatherjohn millerFather's Sister?millerMothergertrude barreto Sister 1rose meyerSister 2mary skyla Social History Tobacco UseTypesPacks/DayYears UsedDateSmoking Tobacco: FormerCigarettes0.818 01/14/1961 - 01/14/1979Smokeless Tobacco: Never Tobacco Cessation:Counseling Given: Not Answered Alcohol UseStandard Drinks/WeekCommentsYes1 (1 standard drink = 0.6 oz pure alcohol)one drink once or twice a monthAH UtilitiesAnswerDate RecordedIn the past 12 months has the extraTKT, Multichannel, oil, or water Taulia threatened to shut off services in your home?No02/15/2025Humiliation, Afraid, Rape, and Kick questionnaireAnswerDate RecordedWithin the last year, have you been afraid of your partner or ex-partner?No11/16/2022Within the last year, have you been humiliated or emotionally abused in other ways by your partner or ex-partner?No 11/16/2022Within the last year, have you been kicked, hit, slapped, or otherwise physically hurt by your partner or ex-partner?No11/16/2022Within the last year, have you been raped or forced to have any kind of sexual activity by your part ner or ex-partner?No11/16/2022Hunger Vital SignAnswerDate RecordedWithin the past 12 months, you worried that your food would run out before you got the money to buymore.Never true02/15/2025Within the past 12 months, the food you bought just didn't last and you didn't have money to get more.Never true 02/15/2025PRAPARE - TransportationAnswerDate RecordedIn the past 12 months, has lack of transportation kept you from medical appointments or from getting medications?No02/15/2025In the past 12 months, has lack of transportation kept you from meetings, work, or from getting things needed for daily living?No 02/15/2025Housing StabilityAnswerDate RecordedWhat is your living situation today?I have a steady place to live02/15/2025EducationAnswerDate RecordedWhat is the highest level of school you have completed or the highest degree you have received?Associate degree: occupational, technical, or vocational program 3CommentsNoSex and Gender InformationValueDate RecordedSex Assigned at XygknGtkpdf30/01/2023 3:32 PM CDTLegal XuwStflwd03/02/2017 12:56 PM CSTGender CskintkzMggydd05/01/2023 3:32 PM CDTSexual OrientationStraight 11/14/2022 3:32 PM CDT Last Filed Vital Signs Vital SignReadingTime TakenCommentsBlood Dfhvrdwo450/7007 1:00 PM CDT Khylp680202/20/2025 1:00 PM ZIFVezmdpoqzrm02.8 ??C (98.2 ??F)02/20/2025 1:00 PM CDTRespiratory Fcbn102709/09/2023 1:21 PM CSTOxygen Qmqummgypz87%07/10/2024 1:21 PM CSTInhaled Oxygen Concentration--Ntxodv22.4 kg (161 lb 13.1 oz)02/20/2025 1:00 PM RUVXvynrd018 cm (5' 3)08/10/2023 2:21 PM CSTBody Mass Index28.66 08/10/2023 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 Plan of Treatment Health MaintenanceDue DateLast DoneCommentsDepression Monitoring (PHQ-9) 1944Office Visit for Blood Pressure Check / Re-check1944reatinine Level (Kidney Function Test)/08/2022, 04/16/2023, 12/08/2022, Additional history existsPotassium Level/08/2022, 12/08/2022, 11/23/2022, Additional history existsSodium Level/08/2022, 12/08/2022, 11/23/2022, Additional history existsDepression Monitoring (PHQ-9 for quality tracking)08/16/2024Fall Risk Screen (Annual)08/16/2024OVID-19 Vaccine ( season)/06/2024, 05/16/2023, 05/12/2022, Additional history existsInfluenza Vaccine (#1)/, 05/06/2023, 05/12/2022, Additional history existsDTaP,Tdap,and Td Vaccines (3 - Td or Tdap) /, 11/15/2006Hepatitis A NivjmsijEnjvduusj34/16/2012, 01/28/2012, 12/23/2011Hepatitis B SnlncftyIexlviwrd07/16/2012, 01/28/2012, 12/23/2011Pneumococcal vaccine (50+ years)Osjdaaipa68/29/2015, 12/10/2009, 06/19/2003Hepatitis B GfsqrnfbbMwwsrypycxrn56/03/2021RSV vaccine - (32- 36 weeks) or 50+ rhefuRimgacjme91/07/2023Zoster BckvinfeTdfzibgsp16/18/2023, 04/27/2023, 02/28/2015HPV VaccinesAged OutNo longer eligible based on patient's age to complete this topicIPV VaccinesAged OutNo longer eligible based on patient's age to complete this topic Medical Devices ImplantedTypeAreaManufacturerDevice IdentifierShelf Expiration DateModel / Serial / LotKnee ImplantKnee ImplantKneeDescription:TKA both left and right knee Procedures Procedure NamePriorityDate/TimeAssociated DiagnosisCommentsCREATININE, POCT, B Ebqmwie8604/16/2023 9:10 AM CDT COMPREHENSIVE METABOLIC PANEL, S/GLdhkiul57/01/2023 8:39 AM CDT Malignant Neoplasm Of Liver Hepatocellular (HCC) from Last 3 Months or Most Recently Relevant to Health Maintenance Results * Creatinine, POCT (04/16/2023 9:10 AM CDT)ComponentValueRef RangeTest Method Analysis TimePerformed AtPathologist SignatureCreatinine, POCT, B0.90.6 - 1.0 mg/dL04/16/2023 9:13 AM CDTPCDTComment: ----ADDITIONAL INFORMATION---- Performed at the Point of Care Specimen (Source)Anatomical Location / LateralityCollection Method / Volume Collection TimeReceived WkchCzazs10/01/2023 9:10 AM CDT04/16/2023 9:14 AM CDT Narrative Authorizing ProviderResult TypeResult StatusUnknown ProviderLAB POCT ORDERABLES - DEVICEFinal ResultPerforming OrganizationAddressCity/State/ZIP CodePhone Number [facility] PERFORM[facility] LABS [address] [place] [address], [facility] PCDT [facility] POC [address] [place] [address] * (ABNORMAL) Comprehensive Metabolic Panel (04/16/2023 8:39 AM CDT)Component ValueRef RangeTest MethodAnalysis TimePerformed AtPathologist Signature Potassium, S3.93.6 - 5.2 mmol/L04/16/2023 9:33 AM CDTDTLSodium, A549344 - 145 mmol/L04/16/2023 9:33 AM CDTDTLChloride, S96(L)98 - 107 mmol/L04/16/2023 9:33 AM CDTDTLBicarbonate, S2922 - 29 mmol/L04/16/2023 9:33 AM CDTDTLAnion Ctm551 - 1509 9:33 AM CDTDTLBUN (Blood Urea Nitrogen), S166 - 21 mg/dL 04/16/2023 9:33 AM CDTDTLCreatinine0.840.59 - 1.04 mg/dL04/16/2023 9:33 AM CDT DTLEstimated GFR (eGFR)71>=60 mL/min/BSA04/16/2023 9:33 AM CDTDTLComment: Estimated GFR calculated using the 2020 CKD_EPI creatinine equation. Calcium, Total, S9.98.8 - 10.2 mg/dL04/16/2023 9:33 AM CDTDTLGlucose, S9370 - 140 mg/dL04/16/2023 9:33 AM CDTDTLProtein, Total, S7.76.3 - 7.9 g/dL04/16/2023 9:33 AM CDTDTLAlbumin, S4.63.5 - 5.0 g/dL04/16/2023 9:33 AM CDTDTLAspartate Aminotransferase (AST), S198 - 43 U/L04/16/2023 9:33 AM CDTDTLAlkaline Phosphatase, S7435 - 104 U/L04/16/2023 9:33 AM CDTDTLAlanine Aminotransferase (ALT), S217 - 45 U/L04/16/2023 9:33 AM CDTDTLBilirubin, Total, S0.3<=1.2 mg/dL 04/16/2023 9:33 AM CDTDTLSpecimen (Source)Anatomical Location / Laterality Collection Method / VolumeCollection TimeReceived TimeBlood (Blood, Venous) 04/16/2023 8:39 AM CDT04/16/2023 9:15 AM CDT Narrative Authorizing ProviderResult TypeResult StatusJoseradha Hatfield M.D.LAB BLOOD ADD-ON Final ResultPerforming OrganizationAddressCity/State/ZIP CodePhone Number [facility] [address] [place] [address], [place] DTL [facility] [address] [place] [address] from Last 3 Months or Most Recently Relevant to Health Maintenance Insurance Care Teams Team MemberRelationshipSpecialtyStart DateEnd Date Elsewhere, Pcp PCP - GeneralInternal Medicine04/14/23
--- OUTSIDE RECORDS SUMMARY | 2025-08-09 07:59 | XMS_ITS | CCD ---
Author Name Interface, B9Sxyacsk lity Address [address] [facility] [address] [place], [place] [address] [place] [address] Oncology Address [address] [facility] [address] [place] [address] Allergies and Adverse Reactions Medication/Group Name Reaction Severity Date Sulfa (Sulfonamide Antibiotics) 01/24/20215579xeumbaubiwkf41/11/2021rythromycin base01/24/2021 Reason for Visit RC - 67 6MO RC/CT PRIOR - 67 6MO RC/CT PRIOR Medications Date Name Route Dose Frequency Instructions Start Date End Date Status Fill Status Indication 01/24/2021 Hydrochlorothiazide Oral mercsl8501/14/2021mlodipine Dyjplmmtbg04/01/2021tenolol Dyiwlxnbos40/11/2021 Aspirin Oralactive Problems Diagnosis Status Date of Diagnosis Resolution Date Non-small cell lung cancer (disorder) Active Lung nodule, solitaryActive Social History Date Name Value 01/08/2021 Sex Female
[2025-08-09 08:09] VITALS: BP 145/76; PULSE 71; RESP 18; TEMP 36.4; O2SAT 98
--- NOTE | 2025-08-09 08:28 | ED.GENADULT ---
HPI - General Adult General Chief complaint: Urogenital Problems, Female Stated complaint: possible uti Time Seen by Provider: 08/09/25 07:58 History of Present Illness HPI narrative: 80-year-old female had a history of UTIs remotely but nothing recently maybe 1 within the last year, currently under chemotherapy for primary liver cancer, that was diagnosed about 5 years ago. She has apparently been doing well. Had a history of adenocarcinoma her lung as well. Medical chart reviewed. Patient denies flank pain in her severe abdominal pain does have bloody urine and urinary frequency and dysuria. She reports this is similar when she had UTIs in the past. She denies fever chills or rigors. Related Data Home Medications ?Medication ?Instructions ?Recorded ?Confirmed Lactobacillus acidophilus 1,000 mmu cells PO QDAY 02/24/22 07/22/25 calcium carbonate (Antacid 200 mg PO QID PRN dyspepsia 02/24/22 08/09/25 (calcium carbonate)) famotidine 20 mg tablet 20 mg PO BID 02/24/22 07/22/25 loratadine 10 mg tablet 10 mg PO DAILY PRN 02/24/22 07/22/25 ibuprofen 200 mg tablet 200 mg PO Q6H PRN 04/05/23 07/22/25 durvalumab IV 09/06/24 07/22/25 cranberry fruit 400 mg capsule 400 mg PO QDAY 10/17/24 08/09/25 polyethylene glycol 3350 17 4 g PO QDAY PRN 03/19/25 07/22/25 gram/dose oral powder (Miralax) bevacizumab 25 mg/mL intravenous IV 05/15/25 07/22/25 solution (Avastin) Previous Rx's ?Medication ?Instructions ?Recorded potassium chloride 20 mEq 20 meq PO .2-3xw #100 tabs 11/14/24 tablet,extended release lidocaine HCl 2 % mucosal solution 5 ml mucous membrane QID PRN 03/02/25 (Lidocaine Viscous) painful mouth sores #100 mL amlodipine 5 mg tablet 5 mg PO DAILY #90 tabs 06/19/25 atenolol 50 mg tablet 50 mg PO QHS #90 tabs 06/19/25 azelastine 137 mcg (0.1 %) nasal 1 - 2 spray intranasal DAILY PRN 06/19/25 spray rhinitis #30 mL estradiol 0.01% (0.1 mg/gram) 1 g vaginal 3XW #42.5 grams 06/19/25 vaginal cream hydrochlorothiazide 25 mg tablet 25 mg PO DAILY #90 tabs 06/19/25 acyclovir 400 mg tablet 400 mg PO TID PRN canker sores #30 06/29/25 tabs fluconazole 150 mg tablet 150 mg PO ONCE #1 tab 08/02/25 Allergies Allergy/AdvReac Type Severity Reaction Status Date / Time erythromycin base Allergy Verified 08/09/25 08:15 nickel Allergy Verified 08/09/25 08:15 oxycodone Allergy Verified 08/09/25 08:15 Sulfa (Sulfonamide Allergy Verified 08/09/25 08:15 Antibiotics) Tetracyclines Allergy Verified 08/09/25 08:15 Review of Systems Status of ROS: Reports: 6 or more systems reviewed and unremarkable except as noted in History and below [facility] Medical History Oral herpes simplex infection ?B00.2 - Herpesviral gingivostomatitis and pharyngotonsillitis (ICD-10) Adenocarcinoma of upper lobe of right lung ?C34.11 - Malignant neoplasm of upper lobe, right bronchus or lung (ICD-10) History of osteopenia ?Z87.39 - Personal history of other diseases of the musculoskeletal system and connective tissue (ICD-10) Surgical History History of cataract surgery ?Z98.49 - Cataract extraction status, unspecified eye (ICD-10) History of laparoscopic cholecystectomy (11/29/18) ?Z90.49 - Acquired absence of other specified parts of digestive tract (ICD-10) History of total bilateral knee replacement (2018) ?Z96.653 - Presence of artificial knee joint, bilateral (ICD-10) History of total vaginal hysterectomy (05/06/16) ?Z90.710 - Acquired absence of both cervix and uterus (ICD-10) History of ablation of neoplasm of liver (12/14/22) ?Z98.890 - Other specified postprocedural states (ICD-10) History of left breast biopsy (05/19/21) ?Z98.890 - Other specified postprocedural states (ICD-10) History of lobectomy of lung (01/31/21) ?Z90.2 - Acquired absence of lung [part of] (ICD-10) H/O resection of liver (02/27/21) ?Z90.49 - Acquired absence of other specified parts of digestive tract (ICD-10) Family History Mother Breast cancer Father Lung cancer Sister Skin cancer Breast cancer Brother Stroke Paternal Grandmother Stroke, Onset Age: 55 Aunt Breast cancer Social History Narrative: Health care directive completed on 09/30/2007. What is your current living situation?: I presently have a place to live Problems where you live: no known problems In the past 12 months, utilities in danger of being shut off: no In past 12 months, lack of transportation kept you from medical appts, meetings, work, or getting things needed for daily living: no In the past 12 mos, have been you worried that your food would run out before you had money to buy more?: never true In the past 12 mos, the food you bought just didn't last and you didn't have money to buy more?: never true Smoking Status: Former smoker Do you use any of these nicotine containing products: None Second hand tobacco smoke exposure: No How often do you have a drink containing alcohol: 2-4 times a month How many standard drinks containing alcohol do you have on a typical day: 1 or 2 How often do you have six or more drinks on one occasion: Never AUDIT-C Alcohol total score: 2 Non-prescribed substance use: denies use How often does anyone, including family, friends and others, physically hurt you: never How often does anyone, including family, friends and others, insult or talk down to you: never How often does anyone, including family, friends and others, threaten you with harm: never How often does anyone, including family, friends and others, scream or curse at you: never service: No Exam Narrative: Exam Narrative: Vital signs show no fever, patient is alert or x3 no cyanosis Abdominal exam is benign No CVA tenderness. Patient is alert oriented appears in no distress, ambulatory Const: Vital Signs, click to edit/add: Vital Signs - 24 hr 08/09/25 08:09 Temperature 97.6 F Pulse Rate [Right Pulse Oximeter] 71 Respiratory Rate 18 Blood Pressure [Ri ght Upper Arm] 145/76 H Pulse Oximetry 98 Oxygen Delivery Me thod Room Air Course Vital Signs Vital signs: Initial Vital Signs Temperature 97.6 F 08/09/25 08:09 Temperature Source Temporal Artery Scan 08/09/25 08:09 Pulse Rate 71 08/09/25 08:09 Pulse Rhythm Regular 08/09/25 08:09 Pulse Strength 3+ Normal 08/09/25 08:09 Respiratory Rate 18 08/09/25 08:09 Blood Pressure 145/76 H 08/09/25 08:09 Blood Pressure Mean 99 08/09/25 08:09 Blood Pressure Position Sitting 08/09/25 08:09 Pulse Oximetry 98 08/09/25 08:09 Oxygen Delivery Method Room Air 08/09/25 08:09 Vital Signs Temperature 97.6 F 08/09/25 08:09 Pulse Rate 71 08/09/25 08:09 Respiratory Rate 18 08/09/25 08:09 Blood Pressure 145/76 H 08/09/25 08:09 Pulse Oximetry 98 08/09/25 08:09 Oxygen Delivery Method Room Air 08/09/25 08:09 Temperature 97.6 F 08/09/25 08:09 Pulse Rate 71 08/09/25 08:09 Respiratory Rate 18 08/09/25 08:09 Blood Pressure 145/76 H 08/09/25 08:09 Pulse Oximetry 98 08/09/25 08:09 Oxygen Delivery Method Room Air 08/09/25 08:09 Medical Decision Making MDM Narrative Medical decision making narrative: 80-year-old female with history of dysuria gross hematuria urinary frequency, with history of UTI. Will cover her with antibiotics Macrobid 100 b.i.d. x7 days. The patient will engage in acidic juices to drink for the next few days, activity as tolerated. Follow up primary care not completely resolve, return to ED as needed. Will review the urinalysis when it returns . Treatment based on her symptoms alone at this point would be reasonable. Lab Data Labs: Lab Results 08/09/25 Range/Units 08:23 Urine Color Yellow (Yellow) Urine Appearance Clear (Clear) Urine pH 7.0 (5.0-8.5) Ur Specific [place] 1.025 (1.000-1.030) Urine Protein 3+ A (Negative) Urine Glucose (UA) Negative (Negative) Urine Ketones Trace A (Negative) Urine Blood 3+ A (Negative) Urine Nitrite Negative (Negative) Urine Bilirubin Negative (Negative) Urine Urobilinogen 0.2 (0.2-1.0) Ur Leukocyte Esterase Trace A (Negative) Urine RBC >100 A (0-2) Urine WBC 5-10 A (0-5) Ur Squamous Epith Cells Few (None-Few) Urine Bacteria None (None) Discharge Plan Discharge Clinical Impression: Urinary tract infection Patient Disposition: Home, Self-Care Condition: Stable Additional Instructions: Antibiotic, drink acidic juices such as orange juice or cranberry juice for the next few days, activity as tolerated. Follow up with regular doctor not improving return to ED as needed. Activity Level: No Restrictions Discharge Diet: Regular Prescriptions: No Action loratadine 10 mg tablet 10 mg PO DAILY PRN famotidine 20 mg tablet 20 mg PO BID calcium carbonate [Antacid (calcium carbonate)] 200 mg calcium (500 mg) tablet,chewable 200 mg PO QID PRN (Reason: dyspepsia) Lactobacillus acidophilus Capsule 1,000 mmu cells PO QDAY cranberry fruit 400 mg capsule 400 mg PO QDAY Rx Instructions: administer with meals durvalumab IV potassium chloride 20 mEq tablet extended release 20 meq PO .2-3xw Qty: 100 1RF amlodipine 5 mg tablet 5 mg PO DAILY Qty: 90 3RF atenolol 50 mg tablet 50 mg PO QHS Qty: 90 3RF estradiol 0.01 % (0.1 mg/gram) cream 1 g vaginal 3XW Qty: 42.5 11RF hydrochlorothiazide 25 mg tablet 25 mg PO DAILY Qty: 90 3RF azelastine 137 mcg (0.1 %) spray,non-aerosol 1 - 2 spray intranasal DAILY PRN (Reason: rhinitis) Qty: 30 6RF ibuprofen 200 mg tablet 200 mg PO Q6H PRN polyethylene glycol 3350 [Miralax] 17 gram/dose powder 4 g PO QDAY PRN Avastin 25 mg/mL solution IV lidocaine HCl [Lidocaine Viscous] 2 % solution 5 ml mucous membrane QID MDD 4 doses PRN (Reason: painful mouth sores) Qty: 100 1RF Rx Instructions: Up to 4 times per day. Swish 5 ml of solution in mouth and hold for 1 minute, then spit. Or may apply solution with a q tip to affected area. acyclovir 400 mg tablet 400 mg PO TID PRN (Reason: canker sores) Qty: 30 0RF Rx Instructions: Take 1 tablet 3 times per day for 5 days. If sores are improving but persist, continue for total of 10 days. May take with food. fluconazole 150 mg tablet 150 mg PO ONCE Qty: 1 0RF Rx Instructions: as a single dose Follow Up/Referrals: Zeenat Rodríguez MD [Primary Care Provider, Internal Medicine] Stand Alone Forms: [email or web address] Info Instructions
--- OUTSIDE RECORDS SUMMARY | 2025-08-09 08:32 | XMS_ITS | CCD ---
Author Name Interface, [id number] lity Address [address] [facility] [address] [place], [place] [id number] [place] [address] Oncology Address [address] [facility] [address] [place] [address] Allergies and Adverse Reactions Medication/Group Name Reaction Severity Date Sulfa (Sulfonamide Antibiotics) 01/24/20217091rjsjxpwcnigo44/11/2021rythromycin base01/24/2021 Reason for Visit RC - 67 6MO RC/CT PRIOR - 67 6MO RC/CT PRIOR Medications Date Name Route Dose Frequency Instructions Start Date End Date Status Fill Status Indication 01/24/2021 Hydrochlorothiazide Oral udbfng2301/14/2021mlodipine Zdzptkptok53/01/2021tenolol Dffhphchpn93/11/2021 Aspirin Oralactive Problems Diagnosis Status Date of Diagnosis Resolution Date Non-small cell lung cancer (disorder) Active Lung nodule, solitaryActive Social History Date Name Value 01/08/2021 Sex Female
--- OUTSIDE RECORDS SUMMARY | 2025-08-09 08:32 | XMS_ITS | CCD ---
Author Name Interface, [id number] lity Address [address] [facility] [address] [place], [place] [id number] [place] [address] Oncology Address [address] [facility] [address] [place] [address] Allergies and Adverse Reactions Medication/Group Name Reaction Severity Date Sulfa (Sulfonamide Antibiotics) 01/24/20213518wvbieiiushow33/11/2021rythromycin base01/24/2021 Reason for Visit RC - 67 6MO RC/CT PRIOR - 67 6MO RC/CT PRIOR Medications Date Name Route Dose Frequency Instructions Start Date End Date Status Fill Status Indication 01/24/2021 Hydrochlorothiazide Oral wezkdg9101/14/2021mlodipine Ckyjrwmvfc50/01/2021tenolol Rdgiqikzne15/11/2021 Aspirin Oralactive Problems Diagnosis Status Date of Diagnosis Resolution Date Non-small cell lung cancer (disorder) Active Lung nodule, solitaryActive Social History Date Name Value 01/08/2021 Sex Female
[2025-08-09 08:40] LABS: Appearance Urine Clear (Clear)
== END 2025-08-09 08:38 | disposition home or self-care (01) ==
LOC: ED 08:30
PROVIDERS: Emergency Provider Family Medicine; PCP Internal Medicine
DX: N39.0 Urinary tract infection, site not specified (principal); R31.9 Hematuria, unspecified; C22.7 Other specified carcinomas of liver
CPT/HCPCS: 81001; 87086; 99283; 99284